=== PATIENT | male | born 1950 | race Two or more races ===

== ENCOUNTER 2025-01-07 12:07 | Inpatient (IN) | payer OTHER ==
[~2025-01-07] VITALS: Ht 170.2 cm; Wt 63.9 kg
[2025-01-07] MEDS: SODIUM CHLORIDE 0.9% 1,000 ML IV ONE (12:45)
[2025-01-07] MEDS ORDERED: VANCOMYCIN PER PHARMACY 0 MG IV SCH ×2 (12:45→19:30)
--- NOTE | 2025-01-07 13:31 | DVH ---
Indication: draining wound and hx of fall Technique: XY R ELBOW 2V XRAYXY Comparison: None FINDINGS/IMPRESSION: No radiographic evidence for acute fracture or dislocation. Enthesopathy at triceps insertion upon t he olecranon. Atherosclerotic calcification disease.
[2025-01-07 14:19] LABS: Hematocrit 35.6 % (41.0-53.0); Hemoglobin 11.9 g/dL (13.5-17.5); Mean Corpuscular Hemoglobin 29.7 pg (28.0-32.0); Mean Corpuscular Volume 89.0 fL (80.0-100.0); Nucleated Red Blood Cells % 0.0 %
[2025-01-07 14:23] LABS: Potassium 4.1 mmol/L (3.5-5.1); Sodium 142 mmol/L (136-145)
[2025-01-07 14:24] LABS: Anion Gap 12 (5-15); Calcium 8.9 mg/dL (8.7-10.4); Chloride 110 mmol/L (98-107)
[2025-01-07 14:25] LABS: Carbon Dioxide 20 mmol/L (20-31)
[2025-01-07 14:29] LABS: BUN/Creatinine Ratio 14.0 (10.0-20.0)
[2025-01-07 14:30] LABS: Blood Urea Nitrogen 33 mg/dL (9-23); Glucose 134 mg/dL (74-106)
--- NOTE | 2025-01-07 15:23 | ED.PDOC ---
History of Present Illness HPI Comments 74M with CAD no angel, HTN, CKD3, Dementia, HLD presented to the ER with the [facility] complaint of draining wound and swelling of the R elbow for the past 3 days, patient experienced a mechanical fall 1 month back, he landed on his elbow and injured it, patient did not see a physician since and went to [place] where noted swelling, tenderness and yellow drainage from the elbow. He has been taking clindamycin buitr the elbow is getting worse, denies fever, but reports chills. Denies chest pain , SOB, abdominal or urinary complaints PMH: CAD no angel, HTN, CKD3, Dementia, HLD Patient seen and examined, started IV vanc and cefepime, 1 L NS ordered Chief Complaint: Upper Extremity Time Seen by MD: 12:13 Allergies: Coded Allergies: Cephalexin (Verified Allergy, Unknown, 01/07/25) Information Source: Patient Mode of Arrival: Ambulatory Past Medical History PAST MEDICAL HISTORY: CAD, High Lipids, HTN Social History Smoker: Non-Smoker Alcohol: Denies ETOH Use Drugs: Denies Drug Use Lives In: Home Constitutional: reports: chills EENTM: denies: blurred vision, double vision, ear bleeding, ear discharge, ear drainage, ear pain, ear ringing, eye pain, eye redness, hearing loss, mouth pain, mouth swelling, nasal discharge, nose bleeding, nose congestion, nose pain, photophobia, tearing, throat pain, throat swelling, voice changes, others Respiratory: denies: cough, hemoptysis, orthopnea, SOB at rest, shortness of breath, SOB with excertion, stridor, wheezing, others Cardiovascular: denies: chest pain, dizzy spells, diaphoresis, Dyspnea on exertion, edema, irregular heart beat, left arm pain, lightheadedness, palpitations, PND, syncope, others Gastrointestinal: denies: abdomen distended, abdominal pain, blood streaked bowels, constipated, diarrhea, dysphagia, difficulty swallowing, hematemesis, melena, nausea, poor appetite, poor fluid intake, rectal bleeding, rectal pain, vomiting, others Genitourinary: denies: burning, dysuria, flank pain, frequency, hematuria, incontinence, penile discharge, penile sore, pain, testicle pain, testicle swelling, urgency, others Neurological: denies: dizziness, fainting, headache, left sided numbness, left sided weakness, numbness, paresthesia, pre-existing deficit, right sided numbness, right sided weakness, seizure, speech problems, tingling, tremors, weakness, others Musculoskeletal: reports: joint pain, joint swelling Integumetry: reports: lesions Allergic/Immunocompromised: denies: Difficulty Healing, Frequent Infections, Hives, Itching, others Hematologic/Lymphatic: denies: anemia, blood clots, easy bleeding, easy bruising, swollen glands, others Endocrine: denies: excessive hunger, excessive sweating, excessive thirst, excessive urination, flushing, intolerance to cold, intolerance to heat, unexplained weight gain, unexplained weight loss, others Psychiatric: denies: anxiety, bipolar disorder, depression, hopeless, panic disorder, schizophrenia, sleepless, suicidal, others Physical Exam General Appearance: No Apparent Distress, Normal HEENT: Normal ENT Inspection, Pharynx Normal, TMs Normal Neck: Full Range of Motion, Non-Tender, Normal, Normal Inspection Respiratory: Chest Non-Tender, Lungs Clear, No Accessory Muscle Use, No Respiratory Distress, Normal Breath Sounds Cardiovascular: No Edema, No JVD, No Murmur, No Gallop, Normal Peripheral Pulses, Regular Rate/Rhythm Breast Exam: Deferred Gastrointestinal: No Organomegaly, Non Tender, No Pulsatile Mass, Normal Bowel Sounds, Soft Genitalia: Deferred Pelvic: Deferred Rectal: None Extremities: No pedal edema Neurologic: None Cerebellar Function: Normal Reflexes: Normal Skin: Wounds Lymphatic: No Adenopathy Was a procedure done? Was a procedure done?: No Differential Dx Considerations may include: cellulitis, abcess, superficial infection X-Ray, Labs, Meds, VS Vital Signs Date Time Temp Pulse Resp B/P (MAP) Pulse Ox O2 Delivery O2 Flow Rate FiO2 01/07/25 12:13 98.2 82 16 122/81 99 98.2 Lab Test 01/07/25 14:09 01/07/25 14:04 Range/Units White Blood Count 5.6 4.4-10.8 10^3/uL Red Blood Count 4.00 L 4.5-5.90 10^6/uL Hemoglobin 11.9 L 13.5-17.5 g/dL Hematocrit 35.6 L 41.0-53.0 % Mean Corpuscular Volume 89.0 80.0-100.0 fL Mean Corpuscular Hemoglobin 29.7 28.0-32.0 pg Mean Corpuscular Hemoglobin Concent 33.4 32.0-36.0 g/dL Red Cell Distribution Width 13.6 11.8-14.3 % Platelet Count 164 140-450 10^3/uL Mean Platelet Volume 8.9 6.9-10.8 fL Neutrophils (%) (Auto) 75.3 37.0-80.0 % Lymphocytes (%) (Auto) 16.1 10.0-50.0 % Monocytes (%) (Auto) 6.1 0.0-12.0 % Eosinophils (%) (Auto) 2.2 0.0-7.0 % Basophils (%) (Auto) 0.3 0.0-2.0 % Neutrophils # (Auto) 4.2 1.6-8.6 10 ^3/uL Lymphocytes # (Auto) 0.9 0.4-5.4 10 ^3/uL Monocytes # (Auto) 0.3 0-1.3 10 ^3/uL Eosinophils # (Auto) 0.1 0-0.8 10 ^3/uL Basophils # (Auto) 0 0-0.2 10 ^3/uL Nucleated Red Blood Cells 0.0 % Erythrocyte Sedimentation Rate 92 H 0-20 mm/hr Sodium Level 142 136-145 mmol/L Potassium Level 4.1 3.5-5.1 mmol/L Chloride Level 110 H 98-107 mmol/L Carbon Dioxide Level 20 20-31 mmol/L Anion Gap 12 5-15 Blood Urea Nitrogen 33 H 9-23 mg/dL Creatinine 2.35 H 0.700-1.30 mg/dL Glomerular Filtration Rate Calc 28 >90 mL/min BUN/Creatinine Ratio 14.0 10.0-20.0 Serum Glucose 134 H 74-106 mg/dL Calcium Level 8.9 8.7-10.4 mg/dL Lactic Acid Level 1.1 0.4-2.0 mmol/L Current Medications Medications (Trade) Dose Ordered Sig/Ricky Route Start Time Stop Time Status Last Admin Sodium Chloride 1,000 ml @ 100 mls/hr Q10H ONCE IV 01/07/25 12:45 01/07/25 22:44 01/07/25 12:45 Time of 1ST Reevaluation: 13:00 Reevaluation 1ST: Unchanged Time of 2ND Reevaluation: 14:00 Reevaluation 2ND: Unchanged Patient Education/Counseling: Diagnosis, Treatment Family Education/Counseling: Diagnosis, Treatment SEPSIS Sepsis Screen Date sepsis recognized/suspect: Jan 07, 2025 Time Sepsis recognized/suspect: 1213 Recent Procedure: No On Antibiotic Therapy: No Respiratory Rate >20: No Heart Rate >90: No Temp<36 C (96.8 F) or >38.3 C: No SBP <90 or MAP <65 mmHG: No New Acute Mental Status Change: No Is the patient on CPAP, BIPAP,: No Physician Orders Blood Culture (01/07/25 12:42) Sodium Chloride 0.9% (01/07/25 12:45) Vancomycin Per Pharmacy (01/07/25 12:45) Cefepime 2gm/50ml Ns (Maxipime 2gm/50ml) (01/07/25 15:00) R Elbow 2v Xray (01/07/25 12:42) Complete Blood Count (01/08/25 04:00) Creatinine (01/08/25 04:00) Vancomycin,Random (01/08/25 04:00) Vital Signs Date Time Temp Pulse Resp B/P (MAP) Pulse Ox O2 Delivery O2 Flow Rate FiO2 01/07/25 12:13 98.2 82 16 122/81 99 98.2 Laboratory Tests Test 01/07/25 14:04 01/07/25 14:09 Lactic Acid Level 1.1 mmol/L (0.4-2.0) White Blood Count 5.6 10^3/uL (4.4-10.8) Medications Medications Dose Ordered Sig/Ricky Route Start Time Stop Time Status Last Admin Dose Admin Sodium Chloride 1,000 ml @ 100 mls/hr Q10H ONCE IV 01/07/25 12:45 01/07/25 22:44 01/07/25 12:45 Departure 1 Departure Time of Disposition: 15:00 Impression: Primary Impression: Cellulitis of right elbow Disposition: 30 STILL A PATIENT Admit to: Med Surg Condition: Stable Critical Care Note Critical Care Time?: No Stability Stability form required: JAZMIN Taveras RESIDENT Jan 07, 2025 15:23
[2025-01-07] MEDS ORDERED: ACETAMINOPHEN 325 MG TAB PO PRN (19:30)
[2025-01-07 20:15] VITALS: RESP 16; O2SAT 98
[2025-01-07 20:39] VITALS: BP 157/75; PULSE 80; RESP 18; TEMP 97.5; O2SAT 100; O2SAT 18
[2025-01-07] MEDS: VANCOMYCIN 1.25GM/250ML 250 ML IV ONE (20:58)
[2025-01-07] MEDS: CEFEPIME 2GM/50ML NS 50 ML IV SCH (20:59)
--- NOTE | 2025-01-07 22:12 | DVHHP2 ---
History of Present Illness Reason for Visit: Right elbow swelling History of Present Illness 74-year-old male presents for evaluation of right elbow swelling. Patient reports having a fall a month ago where he landed on his right elbow. He states noticing swelling over the past three days. He states that today he noticed joel e purulent discharge. Denies fever or chills. No other acute complaints reported. Past Medical History Hypertension, dyslipidemia, chronic kidney disease, diabetes mellitus Past Surgical History Denies Family History Noncontributory Smoke: No ALCOHOL: none Drugs: None Lives: with Family Review of Systems Review of Systems Review of systems are currently negative otherwise addressed in HPI. Allergies: Coded Allergies: Cephalexin (Verified Allergy, Unknown, 01/07/25) Medications Current Medications Medications Dose Ordered Sig/Ricky Route Start Time Stop Time Status Last Admin Dose Admin Vancomycin HCl 0 ml @ 0 mls/hr UD IV 01/07/25 19:30 UNV Cefepime HCl 50 ml @ 12.5 mls/hr DAILY IV 01/08/25 10:00 Acetaminophen/ Hydrocodone Bitart 1 tab Q4HP PRN PO 01/07/25 19:30 Ondansetron HCl 4 mg Q4HP PRN IV 01/07/25 19:30 Acetaminophen 650 mg Q6HP PRN PO 01/07/25 19:30 Metoprolol Succinate 50 mg DAILY PO 01/08/25 10:00 Atorvastatin Calcium 40 mg HS PO 01/08/25 22:00 Exam Vital Signs Vital Signs Date Time Temp Pulse Resp B/P (MAP) Pulse Ox O2 Delivery O2 Flow Rate FiO2 01/07/25 20:39 97.5 80 157/75 (102) 18 97.5 01/07/25 20:15 16 Room Air* 0 21 Exam Gen: 74-year-old male in mild distress Skin: Warm, dry, normal color and texture, no rash. HEENT: Normocephalic atraumatic, mucous membranes moist and pink. Neck: Cervical and supraclavicular nodes normal without enlargement, trachea is midline, thyroid gland is normal without masses. Pulmonary: Clear to auscultation and percussion bilaterally. Cardiac: Regular rate and rhythm. No murmur Abdomen: Soft, nontender, nondistended, bowel sounds present all 4 quadrants, no guarding, no rigidity, no organomegaly. Extremities: No cyanosis, clubbing, right elbow redness with tenderness with mild purulent discharge Neuro: Cranial nerves II through XII grossly intact, normal affect and speech, no focal motor deficits. Labs/Xrays ORDERING PHYSICIAN: JAZMIN FRAUSTO RESIDENT PROCEDURE(s): RELB - R ELBOW 2V XRAY REASON: draining wound and hx of fall ORDER NUMBER(s): [id number], ACCESSION NUMBER(s): [id number] Indication: draining wound and hx of fall Technique: XY R ELBOW 2V XRAYXY Comparison: None FINDINGS/IMPRESSION: No radiographic evidence for acute fracture or dislocation. Enthesopathy at triceps insertion upon the olecranon. Atherosclerotic calcification disease. :3 Labs Test 01/07/25 14:09 01/07/25 14:04 Range/Units White Blood Count 5.6 4.4-10.8 10^3/uL Red Blood Count 4.00 L 4.5-5.90 10^6/uL Hemoglobin 11.9 L 13.5-17.5 g/dL Hematocrit 35.6 L 41.0-53.0 % Mean Corpuscular Volume 89.0 80.0-100.0 fL Mean Corpuscular Hemoglobin 29.7 28.0-32.0 pg Mean Corpuscular Hemoglobin Concent 33.4 32.0-36.0 g/dL Red Cell Distribution Width 13.6 11.8-14.3 % Platelet Count 164 140-450 10^3/uL Mean Platelet Volume 8.9 6.9-10.8 fL Neutrophils (%) (Auto) 75.3 37.0-80.0 % Lymphocytes (%) (Auto) 16.1 10.0-50.0 % Monocytes (%) (Auto) 6.1 0.0-12.0 % Eosinophils (%) (Auto) 2.2 0.0-7.0 % Basophils (%) (Auto) 0.3 0.0-2.0 % Neutrophils # (Auto) 4.2 1.6-8.6 10 ^3/uL Lymphocytes # (Auto) 0.9 0.4-5.4 10 ^3/uL Monocytes # (Auto) 0.3 0-1.3 10 ^3/uL Eosinophils # (Auto) 0.1 0-0.8 10 ^3/uL Basophils # (Auto) 0 0-0.2 10 ^3/uL Nucleated Red Blood Cells 0.0 % Erythrocyte Sedimentation Rate 92 H 0-20 mm/hr Sodium Level 142 136-145 mmol/L Potassium Level 4.1 3.5-5.1 mmol/L Chloride Level 110 H 98-107 mmol/L Carbon Dioxide Level 20 20-31 mmol/L Anion Gap 12 5-15 Blood Urea Nitrogen 33 H 9-23 mg/dL Creatinine 2.35 H 0.700-1.30 mg/dL Glomerular Filtration Rate Calc 28 >90 mL/min BUN/Creatinine Ratio 14.0 10.0-20.0 Serum Glucose 134 H 74-106 mg/dL Calcium Level 8.9 8.7-10.4 mg/dL Lactic Acid Level 1.1 0.4-2.0 mmol/L SEPSIS Sepsis Screen Date sepsis recognized/suspect: Jan 07, 2025 Time Sepsis recognized/suspect: 1212 Recent Procedure: No On Antibiotic Therapy: No Respiratory Rate >20: No Heart Rate >90: No Temp<36 C (96.8 F) or >38.3 C: No SBP <90 or MAP <65 mmHG: No New Acute Mental Status Change: No Is the patient on CPAP, BIPAP,: No Physician Orders Vancomycin,Random (01/08/25 04:00) *[facility] (01/07/25 19:28) Wound Culture W/ Gs (01/07/25 19:28) Basic Metabolic Panel (01/08/25 04:00) Vancomycin Per Pharmacy (01/07/25 19:30) Cefepime 1gm/50ml (Maxipime 1gm/50ml) (01/08/25 10:00) Admit (01/07/25 19:28) Renal Standard(2gna,3gk,Lopho) (01/08/25 Breakfast) Hydrocodone-Acet 5/325mg Tab ([place] 5/32 (01/07/25 19:30) Ondansetron Hcl (Zofran) (01/07/25 19:30) Condition: Stable (01/07/25 19:28) Acetaminophen Tablet (Tylenol Tablet) (01/07/25 19:30) Bedrest With Bathroom Privileg (01/07/25 19:28) Hepatitis B Surface Antigen (01/08/25 04:00) Hepatitis C Antibody (01/08/25 04:00) Metoprolol Xl Succinate (Toprol Xl) (01/08/25 10:00) Atorvastatin (Lipitor) (01/08/25 22:00) Metoprolol Xl Succinate (Toprol Xl) (01/07/25 22:15) Vital Signs Date Time Temp Pulse Resp B/P (MAP) Pulse Ox O2 Delivery O2 Flow Rate FiO2 01/07/25 20:39 97.5 80 157/75 (102) 18 97.5 01/07/25 20:15 16 98 Room Air* 0 21 01/07/25 20:13 97.8 83 16 133/71 (91) 99 97.8 Laboratory Tests Test 01/07/25 14:04 01/07/25 14:09 Lactic Acid Level 1.1 mmol/L (0.4-2.0) White Blood Count 5.6 10^3/uL (4.4-10.8) Medications Medications Dose Ordered Sig/Ricky Route Start Time Stop Time Status Last Admin Dose Admin Cefepime HCl 50 ml @ 12.5 mls/hr Q24H IV 01/07/25 15:00 01/07/25 21:21 DC 01/07/25 20:59 12.5 MLS/HR Sodium Chloride 1,000 ml @ 100 mls/hr Q10H ONCE IV 01/07/25 12:45 01/07/25 22:44 01/07/25 12:45 100 MLS/HR Vancomycin HCl 250 ml @ 200 mls/hr ONCE ONCE IV 01/07/25 13:30 01/07/25 14:44 DC 01/07/25 20:58 200 MLS/HR Assessment/Plan Assessment/Plan Assessment Right elbow cellulitis Hypertension Acute on chronic renal failure Diabetes mellitus Plan Admit the patient to Med [facility] [place] Cefepime/vancomycin Wound culture pending Resume home medications Continue treatment per orders. Plan discussed with: Patient My Orders Orders - BRYAN HICKMAN Procedure Category Date Status Time *Dr[facility] CONS 01/07/25 Transmitted -[place] 19:28 Wound Culture W/ Gs CIARRA 01/07/25 Logged 19:28 Basic Metabolic Panel LAB 01/08/25 Verified 04:00 Vancomycin Per PHA 01/07/25 Pending Pharmacy 19:30 Cefepime 1gm/50ml PHA 01/08/25 In Process (Maxipime 1gm/50ml) 10:00 Admit ADMIT 01/07/25 Transmitted 19:28 Renal DIET 01/08/25 Transmitted Standard(2gna,3gk,Lopho) Breakfast Hydrocodone-Acet PHA 01/07/25 In Process 5/325mg Tab ([place] 19:30 Ondansetron Hcl PHA 01/07/25 In Process (Zofran) 19:30 Condition: Stable MICAH 01/07/25 In Process 19:28 Acetaminophen Tablet PHA 01/07/25 In Process (Tylenol Tablet) 19:30 Bedrest With Bathroom MICAH 01/07/25 In Process Privileg 19:28 Hepatitis B Surface LAB 01/08/25 Verified Antigen 04:00 Hepatitis C Antibody LAB 01/08/25 Verified 04:00 Metoprolol Xl PHA 01/08/25 In Process Succinate (Toprol Xl) 10:00 Atorvastatin (Lipitor) PHA 01/08/25 In Process 22:00 Metoprolol Xl PHA 01/07/25 In Process Succinate (Toprol Xl) 22:15 Date of Service: Jan 07, 2025 Billing Provider: BRYAN HICKMAN Common Visit Codes: [id number] INP/OBS CARE (MOD) BRYAN HICKMAN Jan 07, 2025 22:12
[2025-01-07] MEDS: METOPROLOL SUCCINATE XL 50 MG TAB PO ONE (23:20)
[2025-01-07] MEDS: HYDROcodone-ACET 5/325MG TAB PO PRN (23:20)
[2025-01-08] VITALS (7 sets, daily range): BP systolic 147–179; BP diastolic 62–88; PULSE 66–77; RESP 16–18; TEMP 97.4–97.9; O2SAT 96–100
[2025-01-08 05:56] LABS: Hematocrit 31.3 % (41.0-53.0); Hemoglobin 10.8 g/dL (13.5-17.5); Mean Corpuscular Hemoglobin 30.5 pg (28.0-32.0); Mean Corpuscular Volume 88.1 fL (80.0-100.0); Nucleated Red Blood Cells % 0.1 %
[2025-01-08 06:11] LABS: Potassium 3.9 mmol/L (3.5-5.1); Sodium 143 mmol/L (136-145)
[2025-01-08 06:12] LABS: Anion Gap 12 (5-15); Carbon Dioxide 21 mmol/L (20-31)
[2025-01-08 06:16] LABS: Calcium 8.1 mg/dL (8.7-10.4); Chloride 110 mmol/L (98-107)
[2025-01-08 06:17] LABS: BUN/Creatinine Ratio 14.8 (10.0-20.0); Blood Urea Nitrogen 31 mg/dL (9-23); Glucose 102 mg/dL (74-106)
[2025-01-08] MEDS: CEFEPIME 1GM/50ML 50 ML IV SCH (09:09)
[2025-01-08] MEDS: METOPROLOL SUCCINATE XL 50 MG TAB PO SCH (09:10)
[2025-01-08] MEDS ORDERED: VANCOMYCIN 1.25GM/250ML 250 ML IV ONE (10:15)
--- NOTE | 2025-01-08 11:49 | DVH ---
US KIDNEY HISTORY: LAVELL COMPARISON: None TECHNIQUE: Transverse and longitudinal grayscale and color doppler images were obtained of the kidney s and bladder. FINDINGS: Right kidney: Size: 7.8 cm Cortical thickness: Normal Echogenicity: Increased Stones: None Masses: None Hydronephrosis: None Ureters: Not well visualized. Other: Trace perinephric fluid. Left kidney: Size: 9.4 cm Cortical thickness: Normal Echogenicity: Increased Stones: None Masses: None Hydronephrosis: None Ureters: Not well visualized. Other: Trace perinephric fluid. Bladder: Normal Other: Cholelithiasis. IMPRESSION: Echogenic kidneys can be seen with medical renal disease.
[2025-01-08] MEDS: VANCOMYCIN 500mg/100mL 100 ML IV ONE (12:40)
--- NOTE | 2025-01-08 15:09 | DVHCONRES ---
Date Seen: Jan 08, 2025 Resident Creating Document: SUKHDEEP SAENZ RESIDENT Referring Physician SARA Krishna History of Present Illness This is a 74-year-old male with past medical history of hypertension, dyslipidemia, type 2 diabetes mellitus presented to the ED for an evaluation of right elbow swelling. the patient reports having a fall 1 month ago when he landed on his right elbow. he also mentioned noticed swelling for past 3 days and with some purulent discharge. He denies fever, chills, shortness of breath, cough, any changes in bowel and bladder habit. patient was seen and examined on the bedside. He is alert oriented x3. complaint of right elbow pain and swelling. Past Medical History Hypertension, dyslipidemia, type 2 diabetes mellitus Past Surgical History Unknown Family History: Patient reports no known family medical history. Allergies: Coded Allergies: Cephalexin (Verified Allergy, Unknown, 01/07/25) Current Medications Current Medications Medications (Trade) Dose Ordered Sig/Ricky Route PRN Reason Start Time Stop Time Status Last Admin Vancomycin HCl 0 ml @ 0 mls/hr UD IV 01/07/25 19:30 Cefepime HCl 50 ml @ 12.5 mls/hr DAILY IV 01/08/25 10:00 01/08/25 09:09 Acetaminophen/ Hydrocodone Bitart ([place] 5/325MG Tab) 1 tab Q4HP PRN PO MODERATE PAIN (4-6 PAIN SCALE) 01/07/25 19:30 01/07/25 23:20 Ondansetron HCl (Zofran) 4 mg Q4HP PRN IV NAUSEA / VOMITING 01/07/25 19:30 Acetaminophen (Tylenol Tablet) 650 mg Q6HP PRN PO PAIN SCALE 1-3 OR TEMP>100.4 01/07/25 19:30 Metoprolol Succinate (Toprol Xl) 50 mg DAILY PO 01/08/25 10:00 01/08/25 09:10 Atorvastatin Calcium (Lipitor) 40 mg HS PO 01/08/25 22:00 Review of Systems Constitutional: No: Fever, Chills, Sweats, Weakness, Malaise, Other Eyes: No: Pain, Vision change, Conjunctivae inflammation, Eyelid inflammation, Other, Redness ENT: No: Ear pain, Ear discharge, Nose pain, Nose discharge, Nose congestion, Mouth pain, Mouth swelling, Throat pain, Throat swelling, Other Respiratory: Shortness of breath, improving No: Cough, Dry,Wheezing, Hemoptysis, Pleuritic Pain, Sputum, Wheezing, Other Cardiovascular: No: Chest Pain, Palpitations, Orthopnea, Paroxysmal Noc. Dyspnea, Edema, Lt Headedness, Other Gastrointestinal: No: Nausea, Vomiting, Abdominal Pain, Diarrhea, Constipation, Melena, Hematochezia, Other Musculoskeletal: Pain and swelling of right elbow, No: other, neck pain, shoulder pain, arm pain, back pain, hand pain, leg pain, foot pain Neurological:; No: Weakness, Numbness, Incoordination, Change in speech, Confusion, Seizures Vital Signs Vital Signs Date Time Temp Pulse Resp B/P (MAP) Pulse Ox O2 Delivery O2 Flow Rate FiO2 01/08/25 14:43 97.8 68 18 147/82 (103) 100 97.8 01/07/25 20:39 Room Air* 0 21 Physical Exam Physical examination: General Appearance: Alert, Oriented X3, Cooperative, No acute distress HEENT: Atraumatic, PERRLA, EOMI, Mucous membrane moist/pink Respiratory: Clear to auscultation, Normal air movement Cardiovascular: Regular rate, Normal S1, Normal S2, No murmurs, no chest wall tenderness Abdominal: Normal bowel sounds, Soft, No tenderness, No hepatospenomegaly, No masses Extremities: Swelling and redness of rt elbow, No clubbing, No cyanosis, No edema, Normal pulses. Skin: No rashes, No breakdown, No significant lesion Neuro: Normal gait, Normal speech, Strength at 5/5 X4 ext, Normal tone, Sensation intact, Cranial nerves 3-12 NL, Reflexes 2+ Psych/Mental Status: Mental status NL, Mood NL Labs/Diagnostic Data Labs Test 01/08/25 05:00 01/07/25 23:23 01/07/25 14:09 01/07/25 14:04 Range/Units White Blood Count 4.5 4.4-10.8 10^3/uL Red Blood Count 3.55 L 4.5-5.90 10^6/uL Hemoglobin 10.8 L 13.5-17.5 g/dL Hematocrit 31.3 #L 41.0-53.0 % Mean Corpuscular Volume 88.1 80.0-100.0 fL Mean Corpuscular Hemoglobin 30.5 28.0-32.0 pg Mean Corpuscular Hemoglobin Concent 34.6 32.0-36.0 g/dL Red Cell Distribution Width 13.6 11.8-14.3 % Platelet Count 152 140-450 10^3/uL Mean Platelet Volume 8.8 6.9-10.8 fL Neutrophils (%) (Auto) 64.3 37.0-80.0 % Lymphocytes (%) (Auto) 23.3 10.0-50.0 % Monocytes (%) (Auto) 8.3 0.0-12.0 % Eosinophils (%) (Auto) 3.9 0.0-7.0 % Basophils (%) (Auto) 0.2 0.0-2.0 % Neutrophils # (Auto) 2.9 1.6-8.6 10 ^3/uL Lymphocytes # (Auto) 1.0 0.4-5.4 10 ^3/uL Monocytes # (Auto) 0.4 0-1.3 10 ^3/uL Eosinophils # (Auto) 0.2 0-0.8 10 ^3/uL Basophils # (Auto) 0 0-0.2 10 ^3/uL Nucleated Red Blood Cells 0.1 % Sodium Level 143 136-145 mmol/L Potassium Level 3.9 3.5-5.1 mmol/L Chloride Level 110 H 98-107 mmol/L Carbon Dioxide Level 21 20-31 mmol/L Anion Gap 12 5-15 Blood Urea Nitrogen 31 H 9-23 mg/dL Creatinine 2.10 H 0.700-1.30 mg/dL Glomerular Filtration Rate Calc 32 >90 mL/min BUN/Creatinine Ratio 14.8 10.0-20.0 Serum Glucose 102 74-106 mg/dL Hemoglobin A1c 7.7 H <5.7 % A1C Uric Acid 7.9 3.7-9.2 mg/dL Calcium Level 8.1 L 8.7-10.4 mg/dL Random Vancomycin Level 15.0 H 5-10 ug/mL POC Glucose 162 H 70-106 mg/dl Erythrocyte Sedimentation Rate 92 H 0-20 mm/hr Lactic Acid Level 1.1 0.4-2.0 mmol/L Microbiology Date/Time Source Procedure Growth Status 01/07/25 14:04 Blood Blood Culture - Preliminary NO GROWTH AFTER 24 HOURS OF INCUBATION. 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 Nephro team will follow the patient. In case of any questions or concerns please feel free to reach out. Plan discussed with Dr. Nichole . The patient and caregiver team agreed to the plan. Plan discussed with: Patient, Other (RN) ADDENDUM ADDENDUM seen with resident agree with plan care time 40mins SUKHDEEP SAENZ RESIDENT Jan 08, 2025 15:09 JAYSON NICHOLE MD Jan 08, 2025 21:06
--- NOTE | 2025-01-08 16:52 | DVHPN2 ---
Subjective In bed alert awake oriented x3. Come comfortable without complaints. Able to move his left elbow without much discomfort. Changes from previous H/P or p: No Changes Objective Vitals Vital Signs Date Time Temp Pulse Resp B/P (MAP) Pulse Ox O2 Delivery O2 Flow Rate FiO2 01/08/25 14:43 97.8 68 18 147/82 (103) 100 97.8 01/08/25 14:26 Room Air* 0 21 Intake/Output Intake and Output 01/08/25 07:00 Intake Total 480 ml Balance 480 ml Intake Oral 480 ml # Voids 2 Exam Alert awake oriented x3. HEENT neck supple no JVD. Heart regular rate and rhythm S1-S2. Lungs fair air movement without rales wheezes. Abdomen soft nontender positive bowel sounds. Extremities no edema positive pulses. Right elbow examined positive warmth to touch and no fluctuant mass identified however olecranon bursitis noted. Medications Current Medications Medications Dose Ordered Sig/Ricky Route Start Time Stop Time Status Last Admin Dose Admin Vancomycin HCl 0 ml @ 0 mls/hr UD IV 01/07/25 19:30 Cefepime HCl 50 ml @ 12.5 mls/hr DAILY IV 01/08/25 10:00 01/08/25 09:09 12.5 MLS/HR Acetaminophen/ Hydrocodone Bitart 1 tab Q4HP PRN PO 01/07/25 19:30 01/07/25 23:20 1 TAB Ondansetron HCl 4 mg Q4HP PRN IV 01/07/25 19:30 Acetaminophen 650 mg Q6HP PRN PO 01/07/25 19:30 Metoprolol Succinate 50 mg DAILY PO 01/08/25 10:00 01/08/25 09:10 50 MG Atorvastatin Calcium 40 mg HS PO 01/08/25 22:00 Laboratory Results Laboratory Tests 01/08/25 05:00 Chemistry Test 01/08/25 05:00 Calcium Level 8.1 mg/dL (8.7-10.4) L HgA1c, TSH Test 01/08/25 05:00 Hemoglobin A1c 7.7 % A1C (<5.7) H Microbiology Microbiology Date/Time Source Procedure Growth Status 01/07/25 14:04 Blood Blood Culture - Preliminary NO GROWTH AFTER 24 HOURS OF INCUBATION. Resulted Assessment/Plan Assessment/Plan Right elbow cellulitis Hypertension Acute on chronic renal failure Diabetes mellitus Clinically feeling better. Ambulating. I will order a CT of the right elbow to rule out any abscess. We will have orthopedic consultation as well. Meantime continue current antibiotics and rest of supportive care and treatment. Discussed with the patient regarding care plan at bedside. Plan discussed with: Patient Date of Service: Jan 08, 2025 Billing Provider: GREGORY ARTEAGA MD Common Visit Codes: [id number] INP/OBS CARE(MOD) GREGORY ARTEAGA MD Jan 08, 2025 16:52
[2025-01-08 18:12] LABS: Protein, Urine 86.7 mg/dL (1-14)
[2025-01-08 18:21] LABS: Urine Protein, UAD 1+ (Negative)
[2025-01-08] MEDS: ATORVASTATIN 20 MG TAB PO SCH (21:30)
[2025-01-09] VITALS (8 sets, daily range): BP systolic 125–150; BP diastolic 66–89; PULSE 69–85; RESP 17–19; TEMP 97.5–98.3; O2SAT 96–99
[2025-01-09 07:13] LABS: Hematocrit 33.0 % (41.0-53.0); Hemoglobin 11.3 g/dL (13.5-17.5); Mean Corpuscular Hemoglobin 29.9 pg (28.0-32.0); Mean Corpuscular Volume 87.2 fL (80.0-100.0); Nucleated Red Blood Cells % 0.1 %
[2025-01-09 07:22] LABS: Chloride 107 mmol/L (98-107); Potassium 4.3 mmol/L (3.5-5.1); Sodium 140 mmol/L (136-145)
[2025-01-09 07:23] LABS: Anion Gap 10 (5-15); Calcium 8.8 mg/dL (8.7-10.4); Carbon Dioxide 23 mmol/L (20-31)
[2025-01-09 07:28] LABS: BUN/Creatinine Ratio 11.8 (10.0-20.0)
[2025-01-09 07:34] LABS: Blood Urea Nitrogen 24 mg/dL (9-23); Glucose 141 mg/dL (74-106)
--- NOTE | 2025-01-09 10:49 | DVH ---
CLINICAL INFORMATION: Right elbow bursitis /cellulitis. TECHNIQUE: Axial CT images of the right elbow were obtained without IV contrast. Coronal and sagittal reformatted images were obtained, reviewed, and stored. All CT scans at this medical facility are p erformed using dose modulation techniques as appropriate to a performed exam including the following: Automated exposure control was utilized; adjustment of the MA and/or KV according to patient size; a nd use of iterative reconstruction technique. CTDIvol = 13.66 mGy DLP = 2.13 mGy-cm COMPARISON: XY R ELBOW 2V XRAY on DOS: 01/07/25 FINDINGS: No evidence of acute fracture. Mild arthritic changes at the right elbow. Ossific density m easuring up to 4.5 mm in the posterior recess of the right elbow joint, possible loose body. Prominen t spurring at the proximal aspect of the olecranon. No significant joint effusion. Moderate soft tiss ue swelling along the dorsal aspect of the with ill-defined fluid collection extending up to 6 cm in greatest dimension, likely bursitis. Superimposed cellulitis not excluded. Dense arterial calcificati on. No soft tissue gas. No radiopaque foreign body. No significant fatty atrophy in the visualized mu sculature. IMPRESSION: 1. No evidence of acute bony abnormality. 2. Ossific density at the posterior recess of the right elbow joint, possible loose body. 3. Moderate soft tissue swelling and ill-defined fluid collection along the posterior aspect of the o lecranon, likely bursitis in the appropriate clinical setting. Superimposed cellulitis not excluded. 4. Additional findings as described above.
[2025-01-09] MEDS: VANCOMYCIN 500mg/100mL 100 ML IV ONE (11:00)
[2025-01-09 11:29] LABS: Hepatitis B Surface Antigen Negative (Negative); Hepatitis C Antibody Negative (Negative)
--- NOTE | 2025-01-09 11:31 | DVHPN2 ---
Progress Note Date Seen: Jan 09, 2025 Resident Creating Document: SUKHDEEP SAENZ RESIDENT Medical Necessity Reason Pt with a Central, PICC or Fol: No Subjective Review of Systems patient was seen and examined on the bedside. He is alert oriented x3. complaint of right elbow pain and swelling. Objective vital signs Vital Sign Date Time Temp Pulse Resp B/P (MAP) Pulse Ox O2 Delivery O2 Flow Rate FiO2 01/09/25 09:12 69 133/79 01/09/25 09:00 97.5 18 99 97.5 01/09/25 08:00 Room Air* 0 21 Total Intake and Output 01/08/25 01/08/25 01/09/25 15:00 23:00 07:00 Intake Total 150 ml 850 ml 400 ml Balance 150 ml 850 ml 400 ml medications Current Medications Medications Dose Ordered Sig/Ricky Route Start Time Stop Time Status Last Admin Dose Admin Vancomycin HCl 0 ml @ 0 mls/hr UD IV 01/07/25 19:30 Cefepime HCl 50 ml @ 12.5 mls/hr DAILY IV 01/08/25 10:00 01/09/25 09:12 12.5 MLS/HR Acetaminophen/ Hydrocodone Bitart 1 tab Q4HP PRN PO 01/07/25 19:30 01/09/25 01:04 1 TAB Ondansetron HCl 4 mg Q4HP PRN IV 01/07/25 19:30 Acetaminophen 650 mg Q6HP PRN PO 01/07/25 19:30 Metoprolol Succinate 50 mg DAILY PO 01/08/25 10:00 01/09/25 09:12 50 MG Atorvastatin Calcium 40 mg HS PO 01/08/25 22:00 01/08/25 21:30 40 MG Examination Physical examination: General Appearance: Alert, Oriented X3, Cooperative, No acute distress HEENT: Atraumatic, PERRLA, EOMI, Mucous membrane moist/pink Respiratory: Clear to auscultation, Normal air movement Cardiovascular: Regular rate, Normal S1, Normal S2, No murmurs, no chest wall tenderness Abdominal: Normal bowel sounds, Soft, No tenderness, No hepatospenomegaly, No masses Extremities: Swelling and redness of rt elbow, No clubbing, No cyanosis, No edema, Normal pulses. Skin: No rashes, No breakdown, No significant lesion Neuro: Normal gait, Normal speech, Strength at 5/5 X4 ext, Normal tone, Sensation intact, Cranial nerves 3-12 NL, Reflexes 2+ Psych/Mental Status: Mental status NL, Mood NL laboratory and microbiology Laboratory Tests 01/09/25 06:27 Test 01/09/25 06:27 Range/Units Serum Glucose 141 H 74-106 mg/dL Microbiology Date/Time Source Procedure Growth Status 01/07/25 19:28 Elbow Right Gram Stain Pending Resulted 01/07/25 19:28 Elbow Right Wound Culture - Preliminary Resulted 01/07/25 14:04 Blood Blood Culture - Preliminary NO GROWTH AFTER 24 HOURS OF INCUBATION. 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 - FENa 3.4% - kidney ultrasound demonstrated bilateral medical renal disease - continue IV antibiotics as per primary - Mild ISS - strict I&O - avoid nephrotoxic medication - monitor BMP Thank you so much for the opportunity to consult on your patient. Nephro team will follow the patient. In case of any questions or concerns please feel free to reach out. Plan discussed with Dr. Nichole . The patient and caregiver team agreed to the plan. Plan discussed with: Patient, Other (RN) My Orders My Orders Orders - SUKHDEEP SAENZ Procedure Category Date Status Time * Dietary Consult CONS 01/08/25 Transmitted 17:19 Cleanse Wound With MICAH 01/08/25 In Process Wound Clean 15:43 SUKHDEEP SAENZ RESIDENT Jan 09, 2025 11:31
--- NOTE | 2025-01-09 16:52 | DVHPN2 ---
Subjective In bed alert awake oriented x3. Family is at bedside. Patient's elbow cultures growing staph aureus organisms for which he is on antibiotics including vancomycin. Patient pending orthopedic evaluation to see if he would benefit from any aspiration of fluid collection seen on CT of the elbow. Changes from previous H/P or p: No Changes Objective Vitals Vital Signs Date Time Temp Pulse Resp B/P (MAP) Pulse Ox O2 Delivery O2 Flow Rate FiO2 01/09/25 12:41 97.8 71 19 150/81 (104) 99 97.8 01/09/25 08:00 Room Air* 0 21 Intake/Output Intake and Output 01/09/25 07:00 Intake Total 1400 ml Balance 1400 ml Intake Oral 1250 ml IV Total 150 ml # Voids 3 Exam Alert awake oriented x3. HEENT neck supple no JVD. Heart regular rate and rhythm S1-S2. Lungs fair air movement without rales wheezes. Abdomen soft nontender positive bowel sounds. Extremities no edema positive pulses. Right elbow examined positive warmth to touch and no fluctuant mass identified however olecranon bursitis noted. Medications Current Medications Medications Dose Ordered Sig/Ricky Route Start Time Stop Time Status Last Admin Dose Admin Vancomycin HCl 0 ml @ 0 mls/hr UD IV 01/07/25 19:30 Cefepime HCl 50 ml @ 12.5 mls/hr DAILY IV 01/08/25 10:00 01/09/25 09:12 12.5 MLS/HR Acetaminophen/ Hydrocodone Bitart 1 tab Q4HP PRN PO 01/07/25 19:30 01/09/25 01:04 1 TAB Ondansetron HCl 4 mg Q4HP PRN IV 01/07/25 19:30 Acetaminophen 650 mg Q6HP PRN PO 01/07/25 19:30 Metoprolol Succinate 50 mg DAILY PO 01/08/25 10:00 01/09/25 09:12 50 MG Atorvastatin Calcium 40 mg HS PO 01/08/25 22:00 01/08/25 21:30 40 MG Laboratory Results Laboratory Tests 01/09/25 06:27 Chemistry Test 01/09/25 06:27 Calcium Level 8.8 mg/dL (8.7-10.4) Phosphorus Level 3.6 mg/dL (2.4-5.1) Urinalysis Test 01/08/25 00:00 01/08/25 10:12 Urine Protein/Creatinine Ratio 1.75 Urine Total Protein 86.7 mg/dL (1-14) H Urine Color Light-yellow (Yellow) Urine Clarity Clear (Clear) Urine pH 5.5 (5.0-9.0) Urine Specific [place] 1.013 (1.001-1.035) Urine Protein 1+ (Negative) H Urine Ketones Negative (Negative) Urine Blood Negative /uL (Negative) Urine Nitrite Negative (Negative) Urine Bilirubin Negative (Negative) Urine Urobilinogen Normal mg/dL (Negative) Urine Leukocyte Esterase Negative /uL (Negative) Urine RBC 1 /hpf (0 - 3) Urine Microscopic WBC < 1 /HPF (0-3) Urine Squamous Epithelial Cells Few /hpf (<5) Urine Bacteria None seen /hpf (None Seen) Urine Hyaline Casts Few /lpf (0 - 2) Urine Creatinine 52.51 mg/dL (30.0-125.0) Urine Sodium 123 mmol/L (40-220) Urine Glucose 2+ mg/dL (Normal) H Microbiology Microbiology Date/Time Source Procedure Growth Status 01/07/25 19:28 Elbow Right Gram Stain - Final Resulted 01/07/25 19:28 Elbow Right Wound Culture - Preliminary Resulted 01/07/25 14:04 Blood Blood Culture - Preliminary NO GROWTH AFTER 48 HOURS OF INCUBATION. Resulted Assessment/Plan Assessment/Plan Right elbow cellulitis with the small fluid collection seen on CT of the elbow Hypertension Acute on chronic renal failure Diabetes mellitus Continue vancomycin and current antibiotics. Wait for orthopedic recommendations to see if he needs any bedside aspiration of the fluid or debridement. Continue wound care. Further clinical management per clinical course. Discussed with the patient and family at bedside regarding care plan Plan discussed with: Patient Date of Service: Jan 09, 2025 Billing Provider: GREGORY ARTEAGA MD Common Visit Codes: [id number] INP/OBS CARE(MOD) GREGORY ARTEAGA MD Jan 09, 2025 16:52
--- NOTE | 2025-01-09 17:02 | DVHINCON2 ---
Consult Note Consult Consult Note History of Present Illness (HPI): Pt w/ hx of CAD, HTN, CKD3, Dementia, HLD seem in ER for draining wound and swelling of the R elbow Olecranone aspect for last 1 week approx, patient experienced a mechanical fall 1 month back, he landed on his elbow and injured it, patient did not see a physician since and went to [place] where noted swelling, tenderness and yellow drainage from the elbow and on his return came to [facility] ER. Orthopedic consulted for Right Elbow erythema, drainage and pain, Pt currently on IV antibiotics and and notes most erythema of forearm has resolved, continues to have swelling , erythema and yellow discharge noted on dressing from R Elbow Olecranon aspect. Pt reported full R Elbow ROM with no pain otherwise. No numbness/tingling or worsening of pain requested. Physical Exam: General: Awake, alert, in no acute distress. Right Elbow: Fluctuant swelling over olecranon bursa. Mild purulent discharge noted with manipulation. Surrounding erythema improved compared to admission per pt. No joint line tenderness. Range of motion full, pain-free. Neurovascular exam intact distally. Imaging: right elbow ct 1. No evidence of acute bony abnormality. 2. Ossific density at the posterior recess of the right elbow joint, possible loose body. 3. Moderate soft tissue swelling and ill-defined fluid collection along the posterior aspect of the olecranon, likely bursitis in the appropriate clinical setting. Superimposed cellulitis not excluded. 4. Additional findings as described above. Assessment: Mr. Thomas with possible septic olecranon bursitis of the Right elbow following trauma and drainage. Erythema and forearm cellulitis have improved with IV antibiotics, but fluctuant purulent fluid persists at the bursa. No evidence of intra-articular involvement. Plan: 1. Continue IV antibiotics per primary team. 2. Recommend incision and drainage (I&D) of right olecranon bursa given persistent purulent fluid. 3. Discussed case with Dr. Reyna, Surgery Scheduled for tommorow 1200. NPO Midnight , Consent to be completed, Ordered today. 4. Maintain dressing care and monitor drainage. Plan discussed with: Patient, Other (bedside nurse) Visit Coding Surgery Date of Service if different f: Jan 09, 2025 Billing Provider: MAHENDRA NGO Surgery Visit Codes: [id number] - INP CONSULT <55 MIN MAHENDRA NGO Jan 09, 2025 17:02
[2025-01-10] VITALS (10 sets, daily range): BP systolic 131–171; BP diastolic 72–93; PULSE 67–84; RESP 16–19; TEMP 97.4–98; O2SAT 96–100
[2025-01-10 07:09] LABS: Hematocrit 31.4 % (41.0-53.0); Hemoglobin 10.9 g/dL (13.5-17.5); Mean Corpuscular Hemoglobin 29.9 pg (28.0-32.0); Mean Corpuscular Volume 86.2 fL (80.0-100.0); Nucleated Red Blood Cells % 0.1 %
[2025-01-10 07:22] LABS: Anion Gap 9 (5-15); Carbon Dioxide 21 mmol/L (20-31)
[2025-01-10 07:28] LABS: BUN/Creatinine Ratio 13.8 (10.0-20.0)
[2025-01-10 07:30] LABS: Blood Urea Nitrogen 25 mg/dL (9-23); Calcium 8.6 mg/dL (8.7-10.4); Chloride 106 mmol/L (98-107); Glucose 151 mg/dL (74-106); Potassium 4.0 mmol/L (3.5-5.1); Sodium 136 mmol/L (136-145)
--- NOTE | 2025-01-10 10:28 | DVHPN2 ---
Progress Note Date Seen: Jan 10, 2025 Resident Creating Document: SUKHDEEP SAENZ RESIDENT Medical Necessity Reason Pt with a Central, PICC or Fol: No Subjective Review of Systems patient was seen and examined on the bedside. He is alert oriented x3. complaint of right elbow pain and swelling. Objective vital signs Vital Sign Date Time Temp Pulse Resp B/P (MAP) Pulse Ox O2 Delivery O2 Flow Rate FiO2 01/10/25 09:00 98.0 69 17 139/82 (101) 100 98.0 01/09/25 20:00 Room Air* 0 21 Total Intake and Output 01/09/25 01/09/25 01/10/25 15:00 23:00 07:00 Intake Total 150 ml 1075 ml 200 ml Output Total 251 ml Balance 150 ml 1075 ml -51 ml medications Current Medications Medications Dose Ordered Sig/Ricky Route Start Time Stop Time Status Last Admin Dose Admin Vancomycin HCl 0 ml @ 0 mls/hr UD IV 01/07/25 19:30 Cefepime HCl 50 ml @ 12.5 mls/hr DAILY IV 01/08/25 10:00 01/10/25 09:16 12.5 MLS/HR Acetaminophen/ Hydrocodone Bitart 1 tab Q4HP PRN PO 01/07/25 19:30 01/09/25 17:03 1 TAB Ondansetron HCl 4 mg Q4HP PRN IV 01/07/25 19:30 Acetaminophen 650 mg Q6HP PRN PO 01/07/25 19:30 Metoprolol Succinate 50 mg DAILY PO 01/08/25 10:00 01/09/25 09:12 50 MG Atorvastatin Calcium 40 mg HS PO 01/08/25 22:00 01/09/25 21:07 40 MG Examination Physical examination: General Appearance: Alert, Oriented X3, Cooperative, No acute distress HEENT: Atraumatic, PERRLA, EOMI, Mucous membrane moist/pink Respiratory: Clear to auscultation, Normal air movement Cardiovascular: Regular rate, Normal S1, Normal S2, No murmurs, no chest wall tenderness Abdominal: Normal bowel sounds, Soft, No tenderness, No hepatospenomegaly, No masses Extremities: Swelling and redness of rt elbow, No clubbing, No cyanosis, No edema, Normal pulses. Skin: No rashes, No breakdown, No significant lesion Neuro: Normal gait, Normal speech, Strength at 5/5 X4 ext, Normal tone, Sensation intact, Cranial nerves 3-12 NL, Reflexes 2+ Psych/Mental Status: Mental status NL, Mood N laboratory and microbiology Laboratory Tests 01/10/25 05:24 Test 01/10/25 05:24 Range/Units Serum Glucose 151 H 74-106 mg/dL Microbiology Date/Time Source Procedure Growth Status 01/07/25 19:28 Elbow Right Gram Stain - Final Resulted 01/07/25 19:28 Elbow Right Wound Culture - Preliminary Resulted 01/07/25 14:04 Blood Blood Culture - Preliminary NO GROWTH AFTER 48 HOURS OF INCUBATION. 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 - FENa 3.4% - kidney ultrasound demonstrated bilateral medical renal disease - Scheduled for I and D of right elbow today - continue IV antibiotics as per primary - Mild ISS - strict I&O - avoid nephrotoxic medication - monitor BMP Thank you so much for the opportunity to consult on your patient. Nephro team will follow the patient. In case of any questions or concerns please feel free to reach out. Plan discussed with Dr. Nichole . The patient and caregiver team agreed to the plan. Plan discussed with: Patient, Other (RN) My Orders My Orders Orders - SUKHDEEP SAENZ Procedure Category Date Status Time Dietary NOTICE 01/09/25 Transmitted Recommendations 13:56 Dietary Evaluation Review Comments: Nutrition Recommendation: 1) [place] 1 pk daily 2) CCHO 60gm + cardiac diet 3) Monitor PO intake, lab values, weight trend, and I/O Expected Outcomes/Goals: Wound to improve Lab values to improve Fu 3-5 days SUKHDEEP SAENZ RESIDENT Jan 10, 2025 10:28
--- NOTE | 2025-01-10 10:33 | DVHPN2 ---
Subjective The patient is seen and examined at bedside. The patient is status post I&D of the elbow. Reviewed: Care Plan, H&P, Labs, Medications, Previous Orders, Radiology Changes from previous H/P or p: No Changes Objective Vitals Vital Signs Date Time Temp Pulse Resp B/P (MAP) Pulse Ox O2 Delivery O2 Flow Rate FiO2 01/10/25 09:00 98.0 69 17 139/82 (101) 100 98.0 01/09/25 20:00 Room Air* 0 21 Intake/Output Intake and Output 01/10/25 07:00 Intake Total 1425 ml Output Total 251 ml Balance 1174 ml Intake Oral 1275 ml IV Total 150 ml Output Urine Total 250 ml Stool Total 1 ml # Voids 2 General Appearance: Alert, Oriented X3, Cooperative, No acute distress HEENT: Atraumatic, PERRLA, EOMI, Mucous membr. moist/pink Neck: Supple Lungs: Clear to auscultation, Normal air movement Cardiovascular: Regular rate, Normal S1, Normal S2, No murmurs, Gallops, Rubs Abdomen: Normal bowel sounds, Soft, No tenderness Neuro: Cranial nerves 3-12 NL Psych/Mental Status: Mental status NL Medications Current Medications Medications Dose Ordered Sig/Ricky Route Start Time Stop Time Status Last Admin Dose Admin Vancomycin HCl 0 ml @ 0 mls/hr UD IV 01/07/25 19:30 Cefepime HCl 50 ml @ 12.5 mls/hr DAILY IV 01/08/25 10:00 01/10/25 09:16 12.5 MLS/HR Acetaminophen/ Hydrocodone Bitart 1 tab Q4HP PRN PO 01/07/25 19:30 01/09/25 17:03 1 TAB Ondansetron HCl 4 mg Q4HP PRN IV 01/07/25 19:30 Acetaminophen 650 mg Q6HP PRN PO 01/07/25 19:30 Metoprolol Succinate 50 mg DAILY PO 01/08/25 10:00 01/09/25 09:12 50 MG Atorvastatin Calcium 40 mg HS PO 01/08/25 22:00 01/09/25 21:07 40 MG Laboratory Results Laboratory Tests 01/10/25 05:24 Chemistry Test 01/10/25 05:24 Calcium Level 8.6 mg/dL (8.7-10.4) L Urinalysis Test 01/08/25 00:00 01/08/25 10:12 Urine Protein/Creatinine Ratio 1.75 Urine Total Protein 86.7 mg/dL (1-14) H Urine Color Light-yellow (Yellow) Urine Clarity Clear (Clear) Urine pH 5.5 (5.0-9.0) Urine Specific [place] 1.013 (1.001-1.035) Urine Protein 1+ (Negative) H Urine Ketones Negative (Negative) Urine Blood Negative /uL (Negative) Urine Nitrite Negative (Negative) Urine Bilirubin Negative (Negative) Urine Urobilinogen Normal mg/dL (Negative) Urine Leukocyte Esterase Negative /uL (Negative) Urine RBC 1 /hpf (0 - 3) Urine Microscopic WBC < 1 /HPF (0-3) Urine Squamous Epithelial Cells Few /hpf (<5) Urine Bacteria None seen /hpf (None Seen) Urine Hyaline Casts Few /lpf (0 - 2) Urine Creatinine 52.51 mg/dL (30.0-125.0) Urine Sodium 123 mmol/L (40-220) Urine Glucose 2+ mg/dL (Normal) H Microbiology Microbiology Date/Time Source Procedure Growth Status 01/07/25 19:28 Elbow Right Gram Stain - Final Resulted 01/07/25 19:28 Elbow Right Wound Culture - Preliminary Resulted 01/07/25 14:04 Blood Blood Culture - Preliminary NO GROWTH AFTER 48 HOURS OF INCUBATION. Resulted Labs and/or images reviewed: Labs reviewed by me Assessment/Plan Assessment/Plan Right elbow cellulitis with the small fluid collection seen on CT of the elbow Hypertension Acute on chronic renal failure Diabetes mellitus Continuing current management. Continuing with IV antibiotic take vancomycin and cefepime. We will monitor kidney function. Continuing sliding scale insulin. Continuing pain medication with IV morphine and [place]. This medical document was created using an electronic medical record system with [employer] direct computerized dictation system. Although this document has been carefully reviewed, there may still be some phonetic and typographical errors. These areas are purely typographical due to imperfections of the software programs, and do not reflect any compromise in the patient's medical care. Plan discussed with: Patient Date of Service: Jan 10, 2025 Billing Provider: BOBBY PAL MD Common Visit Codes: [id number] INP/OBS CARE(HIGH) BOBBY PAL MD Jan 10, 2025 10:33
[2025-01-10] MEDS ORDERED: PROPOFOL 10 MG/ML 20 ML IV ONE ×2 (10:48→13:20)
[2025-01-10] MEDS ORDERED: LIDOCAINE 1% INJ PF 5ML AMP ONE (10:48)
[2025-01-10] MEDS ORDERED: ONDANSETRON HCL 4 MG/2 ML VIAL ONE (10:48)
[2025-01-10] MEDS ORDERED: KETOROLAC TROMETH 30 MG/ML 1ML VIAL ONE (10:48)
[2025-01-10] MEDS ORDERED: GLYCOPYRROLATE 0.2 MG/ML 1ML VIAL ONE (10:48)
[2025-01-10] MEDS ORDERED: SODIUM CHLORIDE LOCK 10 ML ONE (10:49)
[2025-01-10] MEDS: VANCOMYCIN 500mg/100mL 100 ML IV ONE (11:14)
--- NOTE | 2025-01-10 12:49 | DVH ---
EXAM: XY CHEST XRAY 1 VIEW Indication: pain Technique: Single frontal view of the chest was obtained Comparison: None FINDINGS: Lines and Tubes: None Lungs: No focal consolidation. Pleura: No effusion. No pneumothorax. Cardiomediastinal contours: Unremarkable Bones: No acute osseous abnormality. IMPRESSION: No acute cardiopulmonary disease.
--- NOTE | 2025-01-10 13:31 | DVHOP2 ---
Operative Report - 2 Report Details Date: 01/10/25 Preop Diagnosis: Right elbow infected olecranon bursitis Postop Diagnosis: Right elbow infected olecranon bursitis Surgeon: Yolanda Reyna MD Anesthesiologist: Khalif Hopper CRNA Anesthesia: Mac, Regional Drains: Meera Consent: The patient was informed of the risks and benefits of the procedure. These include but are not limited to complications of anesthesia, postoperative infection, incomplete relief of symptoms, recurrence of symptoms, damage to blood vessels, nerves and tendons, deep venous thrombosis, pulmonary embolism and possible need for repeat surgery in the future. Complications: None Estimated Blood Loss: Less than 5 cc Fluids: See anesthesia record Findings: Swelling, erythema with small punctate drainage right olecranon bursa Indications for Surgery: Right elbow infected olecranon bursitis Name of Procedure Performed Incision and drainage right olecranon infected bursitis Procedure Details Procedure Details: Patient was brought to the operating room and given conscious sedation along with a right upper extremity regional block. Right upper extremity was prepped and draped in sterile fashion. Surgical time-out was performed verifying patient, laterality, and procedure. I then made incision over the olecranon bursa and purulent exudate immediately extruded. I used a Coleen in spreading fashion to break up adhesions. I irrigated with normal saline bulb syringe. Swabs were obtained and specimen sent for Gram stain aerobic anaerobic culture. I placed a Meera drain in 70 wound with 2-0 nylon. I placed an additional two stitches with a nylon. Wound was dressed sterilely. Patient tolerated the procedure well was brought to recovery room in stable condition. Condition Stable Disposition Still a Patient YOLANDA REYNA MD Jan 10, 2025 13:31
[2025-01-10] MEDS: ACETAMINOPHEN IV 1000 MG/100ML (10MG/ML) IV ONE (13:40)
[2025-01-10] MEDS: ACETAMINOPHEN IV 100 ML IV ONE (13:40)
[2025-01-10] MEDS ORDERED: hydrALAZINE HCL 20 MG/ML VL IV PRN (13:45)
[2025-01-10] MEDS ORDERED: fentaNYL CITRATE 100 MCG/2 ML VL IV PRN (13:45)
[2025-01-10] MEDS ORDERED: FLUMAZENIL 0.1 MG/ML INJ 10ML MDV IV PRN (13:45)
[2025-01-10] MEDS ORDERED: NALOXONE HCL 0.4 MG/ML VIAL IV PRN (13:45)
[2025-01-10] MEDS ORDERED: ONDANSETRON HCL 4 MG/2 ML VIAL IV PRN (13:45)
[2025-01-10] MEDS ORDERED: HYDROmorphone HCL 2 MG/ML VL/or syr IV PRN (13:45)
[2025-01-11] VITALS (11 sets, daily range): BP systolic 117–175; BP diastolic 75–93; PULSE 79–99; RESP 16–19; TEMP 97.7–98.4; O2SAT 95–100
[2025-01-11 04:54] LABS: Anion Gap 11 (5-15); Carbon Dioxide 21 mmol/L (20-31); Chloride 102 mmol/L (98-107)
[2025-01-11 04:55] LABS: Calcium 9.3 mg/dL (8.7-10.4)
[2025-01-11 04:57] LABS: Potassium 5.3 mmol/L (3.5-5.1); Sodium 134 mmol/L (136-145)
[2025-01-11 05:00] LABS: BUN/Creatinine Ratio 13.8 (10.0-20.0); Blood Urea Nitrogen 26 mg/dL (9-23); Glucose 365 mg/dL (74-106)
[2025-01-11] MEDS ORDERED: METO-289 PO (06:57)
--- NOTE | 2025-01-11 07:56 | ECG ---
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
--- NOTE | 2025-01-11 07:56 | ECG ---
[facility] Test Date: 2025-01-09 Test Time: 23:04:02 Pat Name: LUCERO SIGALA Department: Room: 0208T Gender: M Svp: [id number] : 1950 Requested By: BOBBY PAL Order Number: [id number] Reading MD: Vickey Wilcox Measurements Intervals [place] Rate: 69 P: 66 MS: 163 QRS: 65 QRSD: 99 T: 83 QT: 399 QTc: 428 Interpretive Statements Sinus rhythm Probable left ventricular hypertrophy ST elevation, consider anterior injury Electronically Signed On 01-15-2025 21:35:35 PDT by Vickey Wilcox Please click the below link to view image of tracing.
[2025-01-11] MEDS ORDERED: DEXTROSE (50%) 50ML SYRG IV ONE (08:45)
[2025-01-11] MEDS: ALBUTEROL SULF 2.5 MG/0.5ML(0.5%) NEB SOLN NEB ONE (08:49)
[2025-01-11] MEDS: FUROSEMIDE 20 MG/2 ML VIAL IV ONE (09:54)
[2025-01-11] MEDS: SODIUM ZIRCONIUM CYCL 10 GM PAK PO ONE (09:55)
[2025-01-11] MEDS: InsuLIN REG 1unit/0.01ml Soln (100units/ml) IV ONE (09:56)
--- NOTE | 2025-01-11 10:53 | DVHPN2 ---
Progress Note Date Seen: Jan 11, 2025 Resident Creating Document: SUKHDEEP SAENZ RESIDENT Medical Necessity Reason Pt with a Central, PICC or Fol: No Subjective Review of Systems patient was seen and examined on the bedside. He is alert oriented x3. complaint of left sided sharp chest pain, 10/10. EKG revealed sinus rhythm, no ST-T changes. S/P I&D of right elbow day 1. Objective vital signs Vital Sign Date Time Temp Pulse Resp B/P (MAP) Pulse Ox O2 Delivery O2 Flow Rate FiO2 01/11/25 09:55 156/76 01/11/25 09:31 88 18 100 01/11/25 09:00 98.1 98.1 01/11/25 08:50 Room Air* 0 21 Total Intake and Output 01/10/25 01/10/25 01/11/25 15:00 23:00 07:00 Intake Total 100 ml 0 ml 670 ml Output Total 600 ml Balance 100 ml 0 ml 70 ml medications Current Medications Medications Dose Ordered Sig/Ricky Route Start Time Stop Time Status Last Admin Dose Admin Vancomycin HCl 0 ml @ 0 mls/hr UD IV 01/07/25 19:30 Cefepime HCl 50 ml @ 12.5 mls/hr DAILY IV 01/08/25 10:00 01/11/25 09:55 12.5 MLS/HR Acetaminophen/ Hydrocodone Bitart 1 tab Q4HP PRN PO 01/07/25 19:30 01/11/25 08:29 1 TAB Ondansetron HCl 4 mg Q4HP PRN IV 01/07/25 19:30 Acetaminophen 650 mg Q6HP PRN PO 01/07/25 19:30 Metoprolol Succinate 50 mg DAILY PO 01/08/25 10:00 01/10/25 17:23 50 MG Atorvastatin Calcium 40 mg HS PO 01/08/25 22:00 01/10/25 21:15 40 MG Oxycodone HCl 10 mg ONCE PRN PO 01/10/25 13:45 01/10/25 23:31 10 MG Hydralazine HCl 25 mg Q8HR PO 01/11/25 14:00 Examination Physical examination: General Appearance: Alert, Oriented X3, Cooperative, No acute distress HEENT: Atraumatic, PERRLA, EOMI, Mucous membrane moist/pink Respiratory: Clear to auscultation, Normal air movement Cardiovascular: Regular rate, Normal S1, Normal S2, No murmurs, no chest wall tenderness Abdominal: Normal bowel sounds, Soft, No tenderness, No hepatospenomegaly, No masses Extremities: Surgical dressing covering rt elbow, No clubbing, No cyanosis, No edema, Normal pulses. Skin: No rashes, No breakdown, No significant lesion Neuro: Normal gait, Normal speech, Strength at 5/5 X4 ext, Normal tone, Sensation intact, Cranial nerves 3-12 NL, Reflexes 2+ Psych/Mental Status: Mental status NL, Mood N laboratory and microbiology Laboratory Tests 01/11/25 04:16 01/10/25 05:24 Test 01/11/25 04:16 Range/Units Serum Glucose 365 #H 74-106 mg/dL Microbiology Date/Time Source Procedure Growth Status 01/10/25 13:17 Elbow Gram Stain Pending Resulted 01/10/25 13:17 Elbow Wound Culture - Preliminary Resulted 01/07/25 14:04 Blood Blood Culture - Preliminary NO GROWTH AFTER 72 HOURS OF INCUBATION. 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 - FENa 3.4% - kidney ultrasound demonstrated bilateral medical renal disease - Continue metoprolol 50 XL p.o. daily and hydralazine 25 mg Q 8 hours for optimize control of blood pressure - S/P I&D of rt elbow day 1 - continue IV antibiotics as per primary - Moderate ISS - strict I&O - avoid nephrotoxic medication - monitor BMP Thank you so much for the opportunity to consult on your patient. Nephro team will follow the patient. In case of any questions or concerns please feel free to reach out. Plan discussed with Dr. Hernandez . The patient and caregiver team agreed to the plan. Plan discussed with: Patient, Daughter, Other (RN) My Orders My Orders Orders - SUKHDEEP SAENZ Procedure Category Date Status Time Hydralazine Hcl PHA 01/11/25 In Process Tablet (Apresoline 14:00 Dietary Evaluation Review Comments: Nutrition Recommendation: 1) [place] 1 pk daily 2) CCHO 60gm + cardiac diet 3) Monitor PO intake, lab values, weight trend, and I/O Expected Outcomes/Goals: Wound to improve Lab values to improve Fu 3-5 days SUKHDEEP SAENZ RESIDENT Jan 11, 2025 10:53
[2025-01-11] MEDS: VANCOMYCIN 500mg/100mL 100 ML IV ONE (12:00)
--- NOTE | 2025-01-11 12:18 | DVHPN2 ---
Subjective The patient is seen and examined at bedside. The patient is status post I&D of the elbow. Complains of chest pain Reviewed: Care Plan, H&P, Labs, Medications, Previous Orders, Radiology Changes from previous H/P or p: No Changes Objective Vitals Vital Signs Date Time Temp Pulse Resp B/P (MAP) Pulse Ox O2 Delivery O2 Flow Rate FiO2 01/11/25 09:55 156/76 01/11/25 09:31 88 18 100 01/11/25 09:00 98.1 98.1 01/11/25 08:50 Room Air* 0 21 Intake/Output Intake and Output 01/11/25 07:00 Intake Total 770 ml Output Total 600 ml Balance 170 ml Intake Oral 670 ml IV Total 100 ml Output Urine Total 600 ml General Appearance: Alert, Oriented X3, Cooperative, No acute distress HEENT: Atraumatic, PERRLA, EOMI, Mucous membr. moist/pink Neck: Supple Lungs: Clear to auscultation, Normal air movement Cardiovascular: Regular rate, Normal S1, Normal S2, No murmurs, Gallops, Rubs Abdomen: Normal bowel sounds, Soft, No tenderness Neuro: Cranial nerves 3-12 NL Psych/Mental Status: Mental status NL Medications Current Medications Medications Dose Ordered Sig/Ricky Route Start Time Stop Time Status Last Admin Dose Admin Vancomycin HCl 0 ml @ 0 mls/hr UD IV 01/07/25 19:30 Cefepime HCl 50 ml @ 12.5 mls/hr DAILY IV 01/08/25 10:00 01/11/25 09:55 12.5 MLS/HR Ondansetron HCl 4 mg Q4HP PRN IV 01/07/25 19:30 Metoprolol Succinate 50 mg DAILY PO 01/08/25 10:00 01/10/25 17:23 50 MG Atorvastatin Calcium 40 mg HS PO 01/08/25 22:00 01/10/25 21:15 40 MG Oxycodone HCl 10 mg ONCE PRN PO 01/10/25 13:45 01/10/25 23:31 10 MG Hydralazine HCl 25 mg Q8HR PO 01/11/25 14:00 Acetaminophen/ Hydrocodone Bitart 1 tab Q6HPRN PRN PO 01/11/25 11:00 Laboratory Results Laboratory Tests 01/10/25 05:24 01/11/25 04:16 Chemistry Test 01/11/25 04:16 Calcium Level 9.3 mg/dL (8.7-10.4) Urinalysis Test 01/08/25 00:00 01/08/25 10:12 Urine Protein/Creatinine Ratio 1.75 Urine Total Protein 86.7 mg/dL (1-14) H Urine Color Light-yellow (Yellow) Urine Clarity Clear (Clear) Urine pH 5.5 (5.0-9.0) Urine Specific [place] 1.013 (1.001-1.035) Urine Protein 1+ (Negative) H Urine Ketones Negative (Negative) Urine Blood Negative /uL (Negative) Urine Nitrite Negative (Negative) Urine Bilirubin Negative (Negative) Urine Urobilinogen Normal mg/dL (Negative) Urine Leukocyte Esterase Negative /uL (Negative) Urine RBC 1 /hpf (0 - 3) Urine Microscopic WBC < 1 /HPF (0-3) Urine Squamous Epithelial Cells Few /hpf (<5) Urine Bacteria None seen /hpf (None Seen) Urine Hyaline Casts Few /lpf (0 - 2) Urine Creatinine 52.51 mg/dL (30.0-125.0) Urine Sodium 123 mmol/L (40-220) Urine Glucose 2+ mg/dL (Normal) H Microbiology Microbiology Date/Time Source Procedure Growth Status 01/10/25 13:17 Elbow Gram Stain Pending Resulted 01/10/25 13:17 Elbow Wound Culture - Preliminary Resulted 01/07/25 14:04 Blood Blood Culture - Preliminary NO GROWTH AFTER 72 HOURS OF INCUBATION. Resulted Labs and/or images reviewed: Labs reviewed by me Assessment/Plan Assessment/Plan Right elbow cellulitis with the small fluid collection seen on CT of the elbow Hypertension Acute on chronic renal failure Diabetes mellitus Chest pain with abnormal EKG (review by me) Continuing current management. Continuing with IV antibiotic take vancomycin and cefepime. We will monitor kidney function. Continuing sliding scale insulin. Continuing pain medication with IV morphine and [place]. Nitrostat 0.4mg sl q5 min PRN for chest pain. Maximum three dosage per 15 minutes Cardiology consult This medical document was created using an electronic medical record system with [employer] direct computerized dictation system. Although this document has been carefully reviewed, there may still be some phonetic and typographical errors. These areas are purely typographical due to imperfections of the software programs, and do not reflect any compromise in the patient's medical care. Plan discussed with: Patient Date of Service: Jan 11, 2025 Billing Provider: BOBBY PAL MD Common Visit Codes: [id number] INP/OBS CARE(HIGH) BOBBY PAL MD Jan 11, 2025 12:18
[2025-01-11] MEDS ORDERED: NITROGLYCERIN 0.4 MG SL TAB SL PRN (12:30)
[2025-01-11] MEDS: ONDANSETRON HCL 4 MG/2 ML VIAL IV PRN (12:34)
[2025-01-11] MEDS ORDERED: DEXTROSE (50%) 50ML SYRG IV PRN ×2 (13:30)
[2025-01-11] MEDS: HYDROcodone-ACET 5/325MG TAB PO PRN (15:31)
[2025-01-11] MEDS ORDERED: ACCU-CHEK COMFORT CURVE STRIP VI SCH (17:00)
[2025-01-11] MEDS ORDERED: InsuLIN REG 1unit/0.01ml Soln (100units/ml) SC SCH (17:00)
[2025-01-11] MEDS: ACCU-CHEK COMFORT CURVE STRIP VI SCH (17:00)
--- NOTE | 2025-01-11 17:17 | DVHINCON2 ---
Date Seen: Jan 11, 2025 Referring Physician MD Samia Reason for Consultation Chest pain History of Present Illness This is a Estonian-speaking 74-year-old man who presented to the emergency room with a chief complaint of right elbow pain for three days. The patient reports a mechanical fall injury approximately a month ago stating he got infected and worsening symptoms during the past three days prior to arrival. During admission the patient developed chest pain described as substernal, nonradiating, pressure-like, and intermittent for which he was medicated with NTG SL 0.4 mg x 1 with relief of symptoms. At this time, the patient is not admitted to the telemetry unit to review cardiac events neither there is a baseline troponin level documented. Upon arrival on 01/09/2025 he underwent m ultiple 12 lead electrocardiogram revealing a sinus rhythm with ST elevation to anteroseptal and inferior leads. A subsequent 12 lead electrocardiogram was performed at bedside upon evaluation revealing a sinus rhythm with inferior Q- waves and anteroseptal ST-T wave changes. Significant medical history includes hypertension, dyslipidemia, chronic kidney stage III, and dementia. Family History: Patient reports no known family medical history. Allergies: Coded Allergies: Cephalexin (Verified Allergy, Unknown, 01/07/25) Home Meds Reported Medications Metoprolol Succinate (Metoprolol Succinate Er) 50 Mg Tab, 1 TAB PO DAILY, #30 TAB 5 Refills 01/11/25 Current Medications Current Medications Medications (Trade) Dose Ordered Sig/Ricky Route PRN Reason Start Time Stop Time Status Last Admin Hydralazine HCl (Apresoline Tablet) 25 mg Q8HR PO 01/11/25 14:00 01/11/25 15:31 Acetaminophen/ Hydrocodone Bitart ([place] 5/325MG Tab) 1 tab Q6HPRN PRN PO MODERATE PAIN (4-6 PAIN SCALE) 01/11/25 11:00 01/11/25 15:31 Nitroglycerin (Ntrostat Sublingual) 0.4 mg Q5MINP PRN SL FOR CHEST PAIN 01/11/25 12:30 Diagnostic Test (Pha) (Accu-Chek Comfort Curve T) 1 strip ACHS 01/11/25 17:00 01/11/25 14:01 DC Insulin Human Regular (InsuLIN R) HS SC 01/11/25 22:00 Insulin Human Regular (InsuLIN R) AC SC 01/11/25 17:00 01/11/25 14:01 DC Dextrose 50 ml UD PRN IV Blood Sugar LESS THAN 60 01/11/25 13:30 01/11/25 14:01 DC Diagnostic Test (Pha) (Accu-Chek Comfort Curve T) 1 strip ACHS 01/11/25 17:00 Insulin Human Regular (InsuLIN R) AC SC 01/11/25 17:00 Dextrose 50 ml UD PRN IV Blood Sugar LESS THAN 60 01/11/25 13:30 Insulin Glargine (Lantus) 30 units HS AR 01/11/25 22:00 Vital Signs Vital Signs Date Time Temp Pulse Resp B/P (MAP) Pulse Ox O2 Delivery O2 Flow Rate FiO2 01/11/25 15:31 120/63 01/11/25 13:00 97.7 99 16 100 97.7 01/11/25 10:00 Room Air 0.0 01/11/25 10:00 21 Labs/Diagnostic Data Labs Test 01/11/25 16:51 01/11/25 04:16 01/10/25 05:24 01/09/25 06:27 Range/Units Sodium Level 134 L 136-145 mmol/L Potassium Level 5.3 H 3.5-5.1 mmol/L Chloride Level 102 98-107 mmol/L Carbon Dioxide Level 21 20-31 mmol/L Anion Gap 11 5-15 Blood Urea Nitrogen 26 H 9-23 mg/dL Creatinine 1.89 H 0.700-1.30 mg/dL Glomerular Filtration Rate Calc 36 >90 mL/min BUN/Creatinine Ratio 13.8 10.0-20.0 Serum Glucose 365 #H 74-106 mg/dL Calcium Level 9.3 8.7-10.4 mg/dL Random Vancomycin Level 11.8 H 5-10 ug/mL White Blood Count 4.7 4.4-10.8 10^3/uL Red Blood Count 3.64 L 4.5-5.90 10^6/uL Hemoglobin 10.9 L 13.5-17.5 g/dL Hematocrit 31.4 L 41.0-53.0 % Mean Corpuscular Volume 86.2 80.0-100.0 fL Mean Corpuscular Hemoglobin 29.9 28.0-32.0 pg Mean Corpuscular Hemoglobin Concent 34.7 32.0-36.0 g/dL Red Cell Distribution Width 12.9 11.8-14.3 % Platelet Count 170 140-450 10^3/uL Mean Platelet Volume 8.6 6.9-10.8 fL Neutrophils (%) (Auto) 59.6 37.0-80.0 % Lymphocytes (%) (Auto) 27.8 10.0-50.0 % Monocytes (%) (Auto) 7.5 0.0-12.0 % Eosinophils (%) (Auto) 4.8 0.0-7.0 % Basophils (%) (Auto) 0.3 0.0-2.0 % Neutrophils # (Auto) 2.8 1.6-8.6 10 ^3/uL Lymphocytes # (Auto) 1.3 0.4-5.4 10 ^3/uL Monocytes # (Auto) 0.4 0-1.3 10 ^3/uL Eosinophils # (Auto) 0.2 0-0.8 10 ^3/uL Basophils # (Auto) 0 0-0.2 10 ^3/uL Nucleated Red Blood Cells 0.1 % Phosphorus Level 3.6 2.4-5.1 mg/dL Test 01/08/25 10:12 01/08/25 05:00 01/08/25 00:00 01/07/25 23:23 Range/Units Urine Color Light-yellow Yellow Urine Clarity Clear Clear Urine pH 5.5 5.0-9.0 Urine Specific [place] 1.013 1.001-1.035 Urine Protein 1+ H Negative Urine Ketones Negative Negative Urine Blood Negative Negative /uL Urine Nitrite Negative Negative Urine Bilirubin Negative Negative Urine Urobilinogen Normal Negative mg/dL Urine Leukocyte Esterase Negative Negative /uL Urine RBC 1 0 - 3 /hpf Urine Microscopic WBC < 1 0-3 /HPF Urine Squamous Epithelial Cells Few <5 /hpf Urine Bacteria None seen None Seen /hpf Urine Hyaline Casts Few 0 - 2 /lpf Urine Creatinine 52.51 30.0-125.0 mg/dL Urine Sodium 123 40-220 mmol/L Urine Glucose 2+ H Normal mg/dL Hemoglobin A1c 7.7 H <5.7 % A1C Uric Acid 7.9 3.7-9.2 mg/dL Hepatitis B Surface Antigen Negative Negative Hepatitis C Antibody Negative Negative Urine Protein/Creatinine Ratio 1.75 Urine Total Protein 86.7 H 1-14 mg/dL POC Glucose 162 H 70-106 mg/dl Test 01/07/25 14:09 01/07/25 14:04 Range/Units Erythrocyte Sedimentation Rate 92 H 0-20 mm/hr Lactic Acid Level 1.1 0.4-2.0 mmol/L Microbiology Date/Time Source Procedure Growth Status 01/10/25 13:17 Elbow Gram Stain - Final Resulted 01/10/25 13:17 Elbow Wound Culture - Preliminary Resulted 01/10/25 13:17 Rectum Gram Stain - Final Resulted 01/10/25 13:17 Rectum Wound Culture Pending Resulted 01/07/25 14:04 Blood Blood Culture - Preliminary NO GROWTH AFTER 72 HOURS OF INCUBATION. Resulted Assessment NSTEMI, questionable type I Rule out structural heart disease Hypertensive urgency Diabetes mellitus, newly diagnosed Dyslipidemia 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 Wilcox) Case discussed with Dr. Wilcox. We will continue further cardiac evaluation with a transthoracic echocardiogram to evaluate cardiac function. Obtain baseline troponin level and twelve-lead electrocardiogram. Transfer to telemetry. Load on ASA and continue maintenance dose as well as lipid lowering agent. Initiate heparin drip per pharmacy protocol. The patient will be offered a cardiac catheterization with coronary angiogram to evaluate for coronary artery disease. Continue aggressive blood pressure control and titrate as tolerated for a target SBP < 140 mmHg. Monitor ECG changes closely and notify. Thank you for allowing us to participate in this patient's care. Please call if you have any questions or concerns. Critical care time: 45 min. This medical document was created using an [employer] medical record system with voice recognition software and computerized dictation system. Although this document has been carefully reviewed, there might still be some phonetic and typographical errors. Occasional wrong-word or ``sound-alike substitutions may have occurred due to the inherent limitations of voice recognition software. These areas are purely typographical due to imperfections of the software programs and do not reflect any compromise in the patient's medical care. Please read the chart carefully and recognize, using context, where these substitutions have occurred. Plan discussed with: Patient, Other NYHA Physical activity limitations: NA Date of Service: Jan 11, 2025 Billing Provider: NELLIE HILARIO Cardiology Common Codes: [id number] CARE 30-74 MIN NELLIE HILARIO Jan 11, 2025 17:17
[2025-01-11] MEDS: InsuLIN REG 1unit/0.01ml Soln (100units/ml) SC SCH ×2 (18:01→22:00)
[2025-01-11 18:53] LABS: Hematocrit 34.4 % (41.0-53.0); Hemoglobin 11.3 g/dL (13.5-17.5); Mean Corpuscular Hemoglobin 29.4 pg (28.0-32.0); Mean Corpuscular Volume 89.9 fL (80.0-100.0); Nucleated Red Blood Cells % 0.0 %
--- NOTE | 2025-01-11 18:58 | DVHSR ---
APPROVED REPORT EXAM: Two-dimensional and M-mode echocardiogram with Doppler and color Doppler. Blood Pressure: 156/76 mmHg INDICATION Chest Pain RISK FACTORS Height: 5'7", Weight: 138 DIMENSIONS LVDd3.0 (3.8-5.7cm)LA (2D)2.9 (1.9-4.0cm)Aortic Root2.8 (2.0-3.7cm) LVDs1.7 (2.5-4.0cm)LA (MM) (1.9-4.0cm)Aortic Cusp Exc1.5 (1.5-2.0cm) EF (%) 76.0 (55-70%)Rt. Atrium2.6 (1.9-4.0cm)Asc. Aorta2.8 cm IVSd1.2 (0.7-1.1cm)RV (D)2.6 (1.8-2.4cm) PWd1.2 (0.7-1.1cm) Mitral Valve MitralMitral Stenosis E wave0.82m/sMV Mean GR.mmHg A wave1.77m/sMV Peak GR.mmHg E/A ratio0.52D MVAcm2 DECEL [id number] 1/2 Timems Aortic Valve Aortic ValveAortic Stenosis V11.44m/Jai Mean GR.28mmHg V24.27m/Jai Peak GR.73mmHg LVOT Diameter1.8 (1.8-2.4cm)Doppler AVA0.86cm2 Pulmonic Valve V21.99m/s Tricuspid Valve TR Velocity1.85m/s [id number] Conclusion MILD LVH AND MILD LV DIASTOLIC DYSFUNCTION LV EF IS 65% CRITICAL AORTIC STENOSIS PEAK AORTIC VALVE GRADIENT IS 73 AND MEAN GRADIENT IS 28 MM OF HG AORTIC VALVE AREA IS 0,86 CM SQUARE CRITICAL AORTIC STENOSIS POSTERIOR MV CALCIFIED NO EFFUSION
[2025-01-11 19:07] LABS: Magnesium 2.0 mg/dL (1.6-2.6); Triglycerides 110.0 mg/dL (< 150)
[2025-01-11 19:09] LABS: Cholesterol 137.0 mg/dL (< 200)
[2025-01-11 19:17] LABS: HDL Cholesterol 39.0 mg/dL (40-59)
[2025-01-11] MEDS ORDERED: HEPARIN DRIP/D5W 100UNITS/ML 250 ML IV SCH (19:30)
[2025-01-11 19:42] LABS: INR 1.02 (0.9-1.15); Partial Thromboplastin Time 21.8 SEC (24.5-34.5); Prothrombin Time 10.8 sec (9.3-11.8)
[2025-01-11] MEDS: HEPARIN SODIUM (PORCINE) 5000 UNITS/ML 1ML VIAL IV ONE (20:06)
[2025-01-11] MEDS: HEPARIN DRIP/D5W 100UNITS/ML 250 ML IV SCH (20:10)
[2025-01-11] MEDS: INSULIN LANTUS (GLARGINE) 1 /0.01ml (100units/ml) SC SCH (22:01)
[2025-01-12] VITALS (10 sets, daily range): BP systolic 112–128; BP diastolic 66–94; PULSE 67–80; RESP 12–18; TEMP 97.5–98; O2SAT 97–100
[2025-01-12 02:22] LABS: Hematocrit 30.7 % (41.0-53.0); Hemoglobin 10.6 g/dL (13.5-17.5); Mean Corpuscular Hemoglobin 29.9 pg (28.0-32.0); Mean Corpuscular Volume 86.3 fL (80.0-100.0); Nucleated Red Blood Cells % 0.1 %
[2025-01-12 02:31] LABS: Chloride 104 mmol/L (98-107); Potassium 3.9 mmol/L (3.5-5.1); Sodium 139 mmol/L (136-145)
[2025-01-12 02:32] LABS: Anion Gap 11 (5-15); Carbon Dioxide 24 mmol/L (20-31)
[2025-01-12 02:37] LABS: BUN/Creatinine Ratio 14.8 (10.0-20.0); Glucose 99 mg/dL (74-106); INR 1.02 (0.9-1.15); Partial Thromboplastin Time 53.3 SEC (24.5-34.5); Prothrombin Time 10.8 sec (9.3-11.8)
[2025-01-12 03:14] LABS: Blood Urea Nitrogen 32 mg/dL (9-23); Calcium 8.7 mg/dL (8.7-10.4)
[2025-01-12 06:47] LABS: INR 1.02 (0.9-1.15); Partial Thromboplastin Time 52.0 SEC (24.5-34.5); Prothrombin Time 10.8 sec (9.3-11.8)
--- NOTE | 2025-01-12 08:19 | CONS ---
Pharmacy Clinical Information: HEPARIN DRIP @0500 APTT= 52.0, NO BOLUS NO CHANGE NEXT APTT DRAW SCHEDULED @1100 PER RX PROTOCOL CONFIRMED AND READ BACK WITH RN PAULO CASTRO [facility] RESIDENT Jan 12, 2025 08:19
[2025-01-12] MEDS ORDERED: ENOXAPARIN SOD 30 MG/0.3 ML SYRINGE SC SCH (10:00)
--- NOTE | 2025-01-12 13:14 | DVHPN2 ---
Subjective The patient is seen and examined at bedside. The patient is status post I&D of the elbow. Complains of chest pain and tired. Reviewed: Care Plan, H&P, Labs, Medications, Previous Orders, Radiology Changes from previous H/P or p: No Changes Objective Vitals Vital Signs Date Time Temp Pulse Resp B/P (MAP) Pulse Ox O2 Delivery O2 Flow Rate FiO2 01/12/25 10:43 74 138/75 01/12/25 10:00 98 Room Air 0.0 01/12/25 10:00 21 01/12/25 09:00 97.6 18 97.6 Intake/Output Intake and Output 01/12/25 07:00 Intake Total 660 ml Output Total 750 ml Balance -90 ml Intake Oral 660 ml Output Urine Total 750 ml # Voids 3 General Appearance: Alert, Oriented X3, Cooperative, No acute distress HEENT: Atraumatic, PERRLA, EOMI, Mucous membr. moist/pink Neck: Supple Lungs: Clear to auscultation, Normal air movement Cardiovascular: Regular rate, Normal S1, Normal S2, No murmurs, Gallops, Rubs Abdomen: Normal bowel sounds, Soft, No tenderness Neuro: Cranial nerves 3-12 NL Psych/Mental Status: Mental status NL Medications Current Medications Medications Dose Ordered Sig/Ricky Route Start Time Stop Time Status Last Admin Dose Admin Vancomycin HCl 0 ml @ 0 mls/hr UD IV 01/07/25 19:30 Cefepime HCl 50 ml @ 12.5 mls/hr DAILY IV 01/08/25 10:00 01/12/25 10:43 12.5 MLS/HR Ondansetron HCl 4 mg Q4HP PRN IV 01/07/25 19:30 01/11/25 12:34 4 MG Metoprolol Succinate 50 mg DAILY PO 01/08/25 10:00 01/12/25 10:43 50 MG Atorvastatin Calcium 40 mg HS PO 01/08/25 22:00 01/11/25 21:55 40 MG Oxycodone HCl 10 mg ONCE PRN PO 01/10/25 13:45 01/10/25 23:31 10 MG Hydralazine HCl 25 mg Q8HR PO 01/11/25 14:00 01/12/25 06:37 25 MG Acetaminophen/ Hydrocodone Bitart 1 tab Q6HPRN PRN PO 01/11/25 11:00 01/12/25 06:37 1 TAB Nitroglycerin 0.4 mg Q5MINP PRN SL 01/11/25 12:30 Insulin Human Regular HS SC 01/11/25 22:00 01/11/25 22:00 4 UNITS Diagnostic Test (Pha) 1 strip ACHS 01/11/25 17:00 01/12/25 11:40 1 STRIP Insulin Human Regular AC SC 01/11/25 17:00 01/12/25 11:39 2 UNITS Dextrose 50 ml UD PRN IV 01/11/25 13:30 Insulin Glargine 30 units HS SC 01/11/25 22:00 01/11/25 22:01 30 UNITS Aspirin 81 mg DAILY PO 01/12/25 10:00 01/12/25 10:43 81 MG Heparin Sodium/ Dextrose 250 ml @ 8 mls/hr Q24H IV 01/11/25 19:30 Cancel Heparin Sodium/ Dextrose 250 ml @ 7 mls/hr Q24H IV 01/11/25 20:00 01/11/25 20:10 7 MLS/HR Laboratory Results Laboratory Tests 01/12/25 02:05 Chemistry Test 01/11/25 16:51 01/12/25 02:05 Magnesium Level 2.0 mg/dL (1.6-2.6) Calcium Level 8.7 mg/dL (8.7-10.4) Coagulation Test 01/11/25 18:33 01/12/25 02:05 01/12/25 05:00 01/12/25 11:42 Prothrombin Time 10.8 sec (9.3-11.8) 10.8 sec (9.3-11.8) 10.8 sec (9.3-11.8) Pending Prothrombin Time INR 1.02 (0.9-1.15) 1.02 (0.9-1.15) 1.02 (0.9-1.15) Pending Activated Partial Thromboplast Time 21.8 SEC (24.5-34.5) L 53.3 SEC (24.5-34.5) H 52.0 SEC (24.5-34.5) H Pending Lipid panel Test 01/11/25 16:51 Cholesterol Level 137 mg/dL (< 200) HDL Cholesterol 39 mg/dL (40-59) L Triglycerides Level 110 mg/dL (< 150) HgA1c, TSH Test 01/11/25 16:51 Thyroid Stimulating Hormone (TSH) 1.42 uIU/mL (0.55-4.78) Urinalysis Test 01/08/25 00:00 01/08/25 10:12 Urine Protein/Creatinine Ratio 1.75 Urine Total Protein 86.7 mg/dL (1-14) H Urine Color Light-yellow (Yellow) Urine Clarity Clear (Clear) Urine pH 5.5 (5.0-9.0) Urine Specific [place] 1.013 (1.001-1.035) Urine Protein 1+ (Negative) H Urine Ketones Negative (Negative) Urine Blood Negative /uL (Negative) Urine Nitrite Negative (Negative) Urine Bilirubin Negative (Negative) Urine Urobilinogen Normal mg/dL (Negative) Urine Leukocyte Esterase Negative /uL (Negative) Urine RBC 1 /hpf (0 - 3) Urine Microscopic WBC < 1 /HPF (0-3) Urine Squamous Epithelial Cells Few /hpf (<5) Urine Bacteria None seen /hpf (None Seen) Urine Hyaline Casts Few /lpf (0 - 2) Urine Creatinine 52.51 mg/dL (30.0-125.0) Urine Sodium 123 mmol/L (40-220) Urine Glucose 2+ mg/dL (Normal) H Microbiology Microbiology Date/Time Source Procedure Growth Status 01/10/25 13:17 Elbow Gram Stain - Final Resulted 01/10/25 13:17 Elbow Wound Culture - Preliminary Resulted 01/10/25 13:17 Rectum Gram Stain - Final Resulted 01/10/25 13:17 Rectum Wound Culture Pending Resulted 01/07/25 14:04 Blood Blood Culture - Preliminary NO GROWTH AFTER 72 HOURS OF INCUBATION. Resulted Labs and/or images reviewed: Labs reviewed by me Assessment/Plan Assessment/Plan Right elbow cellulitis with the small fluid collection seen on CT of the elbow Hypertension Acute on chronic renal failure Diabetes mellitus Chest pain with abnormal EKG (review by me) Severe Aortic Stenosis. Echo show: Mild LVH and mild LV diastolic dysfunction. LV EF is 65% Critical Aortic stenosis, Peak Aortic valve gradient is 73, and mean gradient is 28MM of Hg Posterior MV calcified. No effusion. Continuing current management. Continuing with IV antibiotic take vancomycin and cefepime. We will monitor kidney function. Continuing sliding scale insulin. Continuing pain medication with IV morphine and [place]. Nitrostat 0.4mg sl q5 min PRN for chest pain. Maximum three dosage per 15 minutes Appreciate Cardiology input. Per ambulance driver, patient need to transfer to higher level of care for Aortic valve replacement. I LYNSEY [place] cardiothoracic surgeon. He request the official echo result (at the time I spoke with him, the official report is not available yet), he also request cardiac cath. He decline to accept patient until all of result available and he will reevaluate to see if patient need to be transfer to higher level of care right away or outpatient management. LYNSEY outpatient case manager. Will [facility] cardiology service. This medical document was created using an electronic medical record system with [employer] direct computerized dictation system. Although this document has been carefully reviewed, there may still be some phonetic and typographical errors. These areas are purely typographical due to imperfections of the software programs, and do not reflect any compromise in the patient's medical care. Plan discussed with: Patient, Daughter My Orders Orders - BOBBY PAL MD Procedure Category Date Status Time Glucose Blood PHA 01/11/25 In Process (Accu-Chek Comfort 17:00 Dextrose 50% Syringe PHA 01/11/25 In Process 13:30 Insulin Lantus PHA 01/11/25 In Process (Glargine) (Lantus) 22:00 Insulin R (Human) PHA 01/11/25 In Process (Insulin R) 17:00 Date of Service: Jan 12, 2025 Billing Provider: BOBBY PAL MD Common Visit Codes: [id number] INP/OBS CARE(HIGH) BOBBY PAL MD Jan 12, 2025 13:14
[2025-01-12 13:18] LABS: INR 1.0 (0.9-1.15); Partial Thromboplastin Time 47.6 SEC (24.5-34.5); Prothrombin Time 10.6 sec (9.3-11.8)
--- NOTE | 2025-01-12 13:52 | CONS ---
Pharmacy Clinical Information: HEPARIN DRIP, ACS PROTOCOL @1350 APTT 47.6 - NO BOLUS, INCREASE BY 200 UNITS NEXT APTT DRAW SCHEDULED @1999 PER RX PROTOCOL CONFIRMED AND READ BACK WITH RN PAULO DOYLE [facility] RES[facility] Jan 12, 2025 13:52
[2025-01-12] MEDS: HEPARIN DRIP/D5W 100UNITS/ML 250 ML IV SCH (14:34)
[2025-01-12] MEDS ORDERED: KETAMINE 50mg/ML 1ml syringe IV ONE (15:01)
--- NOTE | 2025-01-12 16:05 | DVHPN2 ---
Progress Note Date Seen: Jan 12, 2025 Medical Necessity Reason Pt with a Central, PICC or Fol: No Subjective Patient reports: No new complaints, Feels better Objective vital signs Vital Sign Date Time Temp Pulse Resp B/P (MAP) Pulse Ox O2 Delivery O2 Flow Rate FiO2 01/12/25 15:25 123/78 01/12/25 13:00 98.0 70 12 99 98.0 01/12/25 10:00 Room Air 0.0 01/12/25 10:00 21 Total Intake and Output 01/11/25 01/11/25 01/12/25 15:00 23:00 07:00 Intake Total 300 ml 360 ml Output Total 750 ml Balance 300 ml -390 ml medications Current Medications Medications Dose Ordered Sig/Ricky Route Start Time Stop Time Status Last Admin Dose Admin Vancomycin HCl 0 ml @ 0 mls/hr UD IV 01/07/25 19:30 Cefepime HCl 50 ml @ 12.5 mls/hr DAILY IV 01/08/25 10:00 01/12/25 10:43 12.5 MLS/HR Ondansetron HCl 4 mg Q4HP PRN IV 01/07/25 19:30 01/11/25 12:34 4 MG Metoprolol Succinate 50 mg DAILY PO 01/08/25 10:00 01/12/25 10:43 50 MG Atorvastatin Calcium 40 mg HS PO 01/08/25 22:00 01/11/25 21:55 40 MG Oxycodone HCl 10 mg ONCE PRN PO 01/10/25 13:45 01/10/25 23:31 10 MG Hydralazine HCl 25 mg Q8HR PO 01/11/25 14:00 01/12/25 15:25 25 MG Acetaminophen/ Hydrocodone Bitart 1 tab Q6HPRN PRN PO 01/11/25 11:00 01/12/25 06:37 1 TAB Nitroglycerin 0.4 mg Q5MINP PRN SL 01/11/25 12:30 Insulin Human Regular HS SC 01/11/25 22:00 01/11/25 22:00 4 UNITS Diagnostic Test (Pha) 1 strip ACHS 01/11/25 17:00 01/12/25 11:40 1 STRIP Insulin Human Regular AC SC 01/11/25 17:00 01/12/25 11:39 2 UNITS Dextrose 50 ml UD PRN IV 01/11/25 13:30 Insulin Glargine 30 units HS SC 01/11/25 22:00 01/11/25 22:01 30 UNITS Aspirin 81 mg DAILY PO 01/12/25 10:00 01/12/25 10:43 81 MG Heparin Sodium/ Dextrose 250 ml @ 8 mls/hr Q24H IV 01/11/25 19:30 Cancel Heparin Sodium/ Dextrose 250 ml @ 9 mls/hr Q24H IV 01/12/25 14:00 01/12/25 14:34 9 MLS/HR Examination Gen: Patient appears stated age, NAD. Lungs: Bilateral air entry. No rales. CV: RRR, normal S1 and S2 Ext: No edema. Neuro: Alert and oriented x 4. laboratory and microbiology Laboratory Tests 01/12/25 02:05 Test 01/12/25 02:05 Range/Units Serum Glucose 99 # 74-106 mg/dL Microbiology Date/Time Source Procedure Growth Status 01/10/25 13:17 Elbow Gram Stain - Final Resulted 01/10/25 13:17 Elbow Wound Culture - Preliminary Resulted 01/10/25 13:17 Rectum Gram Stain - Final Resulted 01/10/25 13:17 Rectum Wound Culture Pending Resulted 01/07/25 14:04 Blood Blood Culture - Final NO GROWTH AFTER 5 DAYS OF INCUBATION. Complete Labs and/or images reviewed: Labs reviewed by me Problem List/Assessment/Plan Problem List/Assessment/Plan IMP 1. 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 Anemia of chronic disease- hgb 10.6 4. uncontrolled type 2 diabetes mellitus 5.Cellulitis of the right elbow- s/p I&D Plan: - BMP in am - Will continue monitoring kidney function daily - Blood pressure control - Glycemic control agree with current insulin sliding scale - Strict I&O's - Encourage oral intake - Avoidance of ACEIs/ARB and contrast studies if able during timecourse of LAVELL - Monitor vanco trough closely - Will continue to follow Plan discussed with: Patient, Daughter Dietary Evaluation Review Comments: Nutrition Recommendation: 1) [place] 1 pk daily 2) CCHO 60gm + cardiac diet 3) Monitor PO intake, lab values, weight trend, and I/O Expected Outcomes/Goals: Wound to improve Lab values to improve Fu 3-5 days MEEHAN,ZORAIDA [employer]LO[employer] MARKETING SPECIALIST Jan 12, 2025 16:05
[2025-01-12] MEDS: VANCOMYCIN 750MG KIT 100 ML IV ONE (17:28)
[2025-01-12 20:40] LABS: INR 0.99 (0.9-1.15); Partial Thromboplastin Time 61.1 SEC (24.5-34.5); Prothrombin Time 10.5 sec (9.3-11.8)
[2025-01-13] VITALS (9 sets, daily range): BP systolic 112–145; BP diastolic 60–77; PULSE 65–75; RESP 12–18; TEMP 97.5–98.6; O2SAT 97–99
[2025-01-13 03:02] LABS: INR 1.0 (0.9-1.15); Prothrombin Time 10.6 sec (9.3-11.8)
[2025-01-13 03:07] LABS: Partial Thromboplastin Time 83.6 SEC (24.5-34.5)
[2025-01-13] MEDS: HEPARIN DRIP/D5W 100UNITS/ML 250 ML IV SCH ×3 (03:22→23:33)
[2025-01-13 03:37] LABS: Chloride 106 mmol/L (98-107); Potassium 4.5 mmol/L (3.5-5.1); Sodium 139 mmol/L (136-145)
[2025-01-13 03:38] LABS: Anion Gap 9 (5-15); Carbon Dioxide 24 mmol/L (20-31)
[2025-01-13 03:43] LABS: BUN/Creatinine Ratio 18.1 (10.0-20.0)
[2025-01-13 03:50] LABS: Blood Urea Nitrogen 36 mg/dL (9-23); Calcium 8.2 mg/dL (8.7-10.4); Glucose 65 mg/dL (74-106)
[2025-01-13 04:55] LABS: Hematocrit 31.2 % (41.0-53.0); Hemoglobin 10.7 g/dL (13.5-17.5); Mean Corpuscular Hemoglobin 29.7 pg (28.0-32.0); Mean Corpuscular Volume 86.9 fL (80.0-100.0); Nucleated Red Blood Cells % 0.0 %
[2025-01-13 10:08] LABS: INR 0.97 (0.9-1.15); Partial Thromboplastin Time 46.9 SEC (24.5-34.5); Prothrombin Time 10.3 sec (9.3-11.8)
--- NOTE | 2025-01-13 11:13 | CONS ---
Pharmacy Clinical Information: APTT = 46.9 (SUBTHERAPEUTIC) INCREASE HEPARIN DRIP RATE FROM 700 UNITS/HR TO 900 UNITS/HR NEXT APTT DRAW SCHEDULED FOR 1700 PER RX PROTOCOL ULICES TANG PHARMACIST Jan 13, 2025 11:13
--- NOTE | 2025-01-13 14:20 | DVHPN2 ---
Subjective The patient is seen and examined at bedside. The patient is status post I&D of the elbow. Complains of chest pain and tired. Reviewed: Care Plan, H&P, Labs, Medications, Previous Orders, Radiology Changes from previous H/P or p: No Changes Objective Vitals Vital Signs Date Time Temp Pulse Resp B/P (MAP) Pulse Ox O2 Delivery O2 Flow Rate FiO2 01/13/25 14:10 122/60 01/13/25 13:00 98.1 66 12 98 98.1 01/13/25 10:00 Room Air* 0 21 Intake/Output Intake and Output 01/13/25 07:00 Intake Total 1433.0 ml Output Total 1000 ml Balance 433.0 ml Intake Oral 1331 ml IV Total 102.0 ml Output Urine Total 1000 ml # Voids 2 # Bowel Movements 1 General Appearance: Alert, Oriented X3, Cooperative, No acute distress HEENT: Atraumatic, PERRLA, EOMI, Mucous membr. moist/pink Neck: Supple Lungs: Clear to auscultation, Normal air movement Cardiovascular: Regular rate, Normal S1, Normal S2, No murmurs, Gallops, Rubs Abdomen: Normal bowel sounds, Soft, No tenderness Neuro: Cranial nerves 3-12 NL Psych/Mental Status: Mental status NL Medications Current Medications Medications Dose Ordered Sig/Rciky Route Start Time Stop Time Status Last Admin Dose Admin Vancomycin HCl 0 ml @ 0 mls/hr UD IV 01/07/25 19:30 Cefepime HCl 50 ml @ 12.5 mls/hr DAILY IV 01/08/25 10:00 01/13/25 09:59 12.5 MLS/HR Ondansetron HCl 4 mg Q4HP PRN IV 01/07/25 19:30 01/11/25 12:34 4 MG Metoprolol Succinate 50 mg DAILY PO 01/08/25 10:00 01/13/25 09:59 50 MG Atorvastatin Calcium 40 mg HS PO 01/08/25 22:00 01/12/25 21:44 40 MG Oxycodone HCl 10 mg ONCE PRN PO 01/10/25 13:45 01/10/25 23:31 10 MG Hydralazine HCl 25 mg Q8HR PO 01/11/25 14:00 01/13/25 14:10 25 MG Acetaminophen/ Hydrocodone Bitart 1 tab Q6HPRN PRN PO 01/11/25 11:00 01/13/25 10:00 1 TAB Nitroglycerin 0.4 mg Q5MINP PRN SL 01/11/25 12:30 Insulin Human Regular HS VT 01/11/25 22:00 01/12/25 21:58 3 UNITS Diagnostic Test (Pha) 1 strip ACHS 01/11/25 17:00 01/13/25 11:38 1 STRIP Insulin Human Regular AC SC 01/11/25 17:00 01/12/25 11:39 2 UNITS Dextrose 50 ml UD PRN IV 01/11/25 13:30 Insulin Glargine 30 units HS SC 01/11/25 22:00 01/12/25 21:58 30 UNITS Aspirin 81 mg DAILY PO 01/12/25 10:00 01/13/25 09:59 81 MG Heparin Sodium/ Dextrose 250 ml @ 8 mls/hr Q24H IV 01/11/25 19:30 Cancel Heparin Sodium/ Dextrose 250 ml @ 9 mls/hr Q24H IV 01/13/25 11:15 01/13/25 11:39 9 MLS/HR Laboratory Results Laboratory Tests 01/13/25 01:52 Chemistry Test 01/13/25 01:52 Calcium Level 8.2 mg/dL (8.7-10.4) L Coagulation Test 01/12/25 19:53 01/13/25 01:52 01/13/25 09:19 Prothrombin Time 10.5 sec (9.3-11.8) 10.6 sec (9.3-11.8) 10.3 sec (9.3-11.8) Prothrombin Time INR 0.99 (0.9-1.15) 1.00 (0.9-1.15) 0.97 (0.9-1.15) Activated Partial Thromboplast Time 61.1 SEC (24.5-34.5) H 83.6 SEC (24.5-34.5) *H 46.9 SEC (24.5-34.5) H Urinalysis Test 01/08/25 00:00 01/08/25 10:12 Urine Protein/Creatinine Ratio 1.75 Urine Total Protein 86.7 mg/dL (1-14) H Urine Color Light-yellow (Yellow) Urine Clarity Clear (Clear) Urine pH 5.5 (5.0-9.0) Urine Specific [place] 1.013 (1.001-1.035) Urine Protein 1+ (Negative) H Urine Ketones Negative (Negative) Urine Blood Negative /uL (Negative) Urine Nitrite Negative (Negative) Urine Bilirubin Negative (Negative) Urine Urobilinogen Normal mg/dL (Negative) Urine Leukocyte Esterase Negative /uL (Negative) Urine RBC 1 /hpf (0 - 3) Urine Microscopic WBC < 1 /HPF (0-3) Urine Squamous Epithelial Cells Few /hpf (<5) Urine Bacteria None seen /hpf (None Seen) Urine Hyaline Casts Few /lpf (0 - 2) Urine Creatinine 52.51 mg/dL (30.0-125.0) Urine Sodium 123 mmol/L (40-220) Urine Glucose 2+ mg/dL (Normal) H Microbiology Microbiology Date/Time Source Procedure Growth Status 01/10/25 13:17 Elbow Gram Stain - Final Resulted 01/10/25 13:17 Elbow Wound Culture - Preliminary Resulted 01/10/25 13:17 Rectum Gram Stain - Final Resulted 01/10/25 13:17 Rectum Wound Culture Pending Resulted 01/07/25 14:04 Blood Blood Culture - Final NO GROWTH AFTER 5 DAYS OF INCUBATION. Complete Labs and/or images reviewed: Labs reviewed by me Assessment/Plan Assessment/Plan Right elbow cellulitis with the small fluid collection seen on CT of the elbow Hypertension Acute on chronic renal failure Diabetes mellitus Chest pain with abnormal EKG (review by me) Severe Aortic Stenosis. Echo show: Mild LVH and mild LV diastolic dysfunction. LV EF is 65% Critical Aortic stenosis, Peak Aortic valve gradient is 73, and mean gradient is 28MM of Hg Posterior MV calcified. No effusion. Continuing current management. Continuing with IV antibiotic take vancomycin and cefepime. We will monitor kidney function. Continuing sliding scale insulin. Continuing pain medication with IV morphine and [place]. Nitrostat 0.4mg sl q5 min PRN for chest pain. Maximum three dosage per 15 minutes Appreciate Cardiology input. 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 I LYNSEY [place] cardiothoracic surgeon. He request the official echo result (at the time I spoke with him, the official report is not available yet), he also request cardiac cath. He decline to accept patient until all of result available and he will reevaluate to see if patient need to be transfer to higher level of care right away or outpatient management. LYNSEY assistant case manager. Will [facility] cardiology service. SW with son regarding to plan of care. IR consult to see if the drainage from his elbow abcess can be remove and wound care can start. This medical document was created using an electronic medical record system with [employer] dictation system. Although this document has been carefully reviewed, there may still be some phonetic and typographical errors. These areas are purely typographical due to imperfections of the software programs, and do not reflect any compromise in the patient's medical care. This medical document was created using an electronic medical record system with [employer] computerized dictation system. Although this document has been carefully reviewed, there may still be some phonetic and typographical errors. These areas are purely typographical due to imperfections of the software programs, and do not reflect any compromise in the patient's medical care. Plan discussed with: Patient, Son Date of Service: Jan 13, 2025 Billing Provider: BOBBY PAL MD Common Visit Codes: [id number] INP/OBS CARE(HIGH) BOBBY PAL MD Jan 13, 2025 14:20
--- NOTE | 2025-01-13 15:27 | DVHPN2 ---
Progress Note Date Seen: Jan 13, 2025 Medical Necessity Reason Pt with a Central, PICC or Fol: No Subjective Patient reports: No new complaints, Feels better Objective vital signs Vital Sign Date Time Temp Pulse Resp B/P (MAP) Pulse Ox O2 Delivery O2 Flow Rate FiO2 01/13/25 14:10 122/60 01/13/25 13:00 98.1 66 12 98 98.1 01/13/25 10:00 Room Air* 0 21 Total Intake and Output 01/12/25 01/12/25 01/13/25 15:00 23:00 07:00 Intake Total 57.0 ml 147 ml 1229 ml Output Total 1000 ml Balance 57.0 ml 147 ml 229 ml medications Current Medications Medications Dose Ordered Sig/Ricky Route Start Time Stop Time Status Last Admin Dose Admin Vancomycin HCl 0 ml @ 0 mls/hr UD IV 01/07/25 19:30 Cefepime HCl 50 ml @ 12.5 mls/hr DAILY IV 01/08/25 10:00 01/13/25 09:59 12.5 MLS/HR Ondansetron HCl 4 mg Q4HP PRN IV 01/07/25 19:30 01/11/25 12:34 4 MG Metoprolol Succinate 50 mg DAILY PO 01/08/25 10:00 01/13/25 09:59 50 MG Atorvastatin Calcium 40 mg HS PO 01/08/25 22:00 01/12/25 21:44 40 MG Oxycodone HCl 10 mg ONCE PRN PO 01/10/25 13:45 01/10/25 23:31 10 MG Hydralazine HCl 25 mg Q8HR PO 01/11/25 14:00 01/13/25 14:10 25 MG Acetaminophen/ Hydrocodone Bitart 1 tab Q6HPRN PRN PO 01/11/25 11:00 01/13/25 10:00 1 TAB Nitroglycerin 0.4 mg Q5MINP PRN SL 01/11/25 12:30 Insulin Human Regular HS SC 01/11/25 22:00 01/12/25 21:58 3 UNITS Diagnostic Test (Pha) 1 strip ACHS 01/11/25 17:00 01/13/25 11:38 1 STRIP Insulin Human Regular AC SC 01/11/25 17:00 01/12/25 11:39 2 UNITS Dextrose 50 ml UD PRN IV 01/11/25 13:30 Insulin Glargine 30 units HS SC 01/11/25 22:00 01/12/25 21:58 30 UNITS Aspirin 81 mg DAILY PO 01/12/25 10:00 01/13/25 09:59 81 MG Heparin Sodium/ Dextrose 250 ml @ 8 mls/hr Q24H IV 01/11/25 19:30 Cancel Heparin Sodium/ Dextrose 250 ml @ 9 mls/hr Q24H IV 01/13/25 11:15 01/13/25 11:39 9 MLS/HR Examination Gen: Patient appears stated age, NAD. Lungs: Bilateral air entry. No rales. CV: RRR, normal S1 and S2 Ext: No edema. Neuro: Alert and oriented x 4 laboratory and microbiology Laboratory Tests 01/13/25 01:52 Test 01/13/25 01:52 Range/Units Serum Glucose 65 L 74-106 mg/dL Microbiology Date/Time Source Procedure Growth Status 01/10/25 13:17 Elbow Gram Stain - Final Complete 01/10/25 13:17 Wound Culture - Final Staphylococcus aureus Complete 01/10/25 13:17 Rectum Gram Stain - Final Resulted 01/10/25 13:17 Rectum Wound Culture Pending Resulted 01/07/25 14:04 Blood Blood Culture - Final NO GROWTH AFTER 5 DAYS OF INCUBATION. Complete Labs and/or images reviewed: Labs reviewed by me Problem List/Assessment/Plan Problem List/Assessment/Plan IMP 1. 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 Serum creat 1.99 2.Hypertensive urgency 3. Anemia of chronic disease- hgb 10.6 4. uncontrolled type 2 diabetes mellitus 5.Cellulitis of the right elbow- s/p I&D Plan: - BMP in am - Blood pressure control - Glycemic control agree with current insulin sliding scale - Strict I&O's - Encourage oral intake - Avoidance of ACEIs/ARB and contrast studies if able during timecourse of LAVELL - Monitor vanco trough closely - Will continue to follow Plan discussed with: Patient Dietary Evaluation Review Comments: Nutrition Recommendation: 1) [place] 1 pk daily 2) CCHO 60gm + cardiac diet 3) Monitor PO intake, lab values, weight trend, and I/O Expected Outcomes/Goals: Wound to improve Lab values to improve Fu 3-5 days ZORAIDA MEEHAN Jan 13, 2025 15:27
--- NOTE | 2025-01-13 16:03 | DVHPN2 ---
Subjective No cardiac events reported Reviewed: Care Plan, H&P, Labs, Medications, Previous Orders, Radiology Changes from previous H/P or p: No Changes Objective Vitals Vital Signs Date Time Temp Pulse Resp B/P (MAP) Pulse Ox O2 Delivery O2 Flow Rate FiO2 01/13/25 14:10 122/60 01/13/25 13:00 98.1 66 12 98 98.1 01/13/25 10:00 Room Air* 0 21 Intake/Output Intake and Output 01/13/25 07:00 Intake Total 1433.0 ml Output Total 1000 ml Balance 433.0 ml Intake Oral 1331 ml IV Total 102.0 ml Output Urine Total 1000 ml # Voids 2 # Bowel Movements 1 General Appearance: Alert, Oriented X3, Cooperative, No acute distress HEENT: Atraumatic, PERRLA, EOMI, Mucous membr. moist/pink Neck: Supple Lungs: Clear to auscultation, Normal air movement Cardiovascular: Regular rate, Normal S1, Normal S2, No murmurs, Gallops, Rubs Abdomen: Normal bowel sounds, Soft, No tenderness Neuro: Cranial nerves 3-12 NL Psych/Mental Status: Mental status NL Medications Current Medications Medications Dose Ordered Sig/Ricky Route Start Time Stop Time Status Last Admin Dose Admin Vancomycin HCl 0 ml @ 0 mls/hr UD IV 01/07/25 19:30 Cefepime HCl 50 ml @ 12.5 mls/hr DAILY IV 01/08/25 10:00 01/13/25 09:59 12.5 MLS/HR Ondansetron HCl 4 mg Q4HP PRN IV 01/07/25 19:30 01/11/25 12:34 4 MG Metoprolol Succinate 50 mg DAILY PO 01/08/25 10:00 01/13/25 09:59 50 MG Atorvastatin Calcium 40 mg HS PO 01/08/25 22:00 01/12/25 21:44 40 MG Oxycodone HCl 10 mg ONCE PRN PO 01/10/25 13:45 01/10/25 23:31 10 MG Hydralazine HCl 25 mg Q8HR PO 01/11/25 14:00 01/13/25 14:10 25 MG Acetaminophen/ Hydrocodone Bitart 1 tab Q6HPRN PRN PO 01/11/25 11:00 01/13/25 10:00 1 TAB Nitroglycerin 0.4 mg Q5MINP PRN SL 01/11/25 12:30 Insulin Human Regular HS SC 01/11/25 22:00 01/12/25 21:58 3 UNITS Diagnostic Test (Pha) 1 strip ACHS 01/11/25 17:00 01/13/25 11:38 1 STRIP Insulin Human Regular AC SC 01/11/25 17:00 01/12/25 11:39 2 UNITS Dextrose 50 ml UD PRN IV 01/11/25 13:30 Insulin Glargine 30 units HS SC 01/11/25 22:00 01/12/25 21:58 30 UNITS Aspirin 81 mg DAILY PO 01/12/25 10:00 01/13/25 09:59 81 MG Heparin Sodium/ Dextrose 250 ml @ 8 mls/hr Q24H IV 01/11/25 19:30 Cancel Heparin Sodium/ Dextrose 250 ml @ 9 mls/hr Q24H IV 01/13/25 11:15 01/13/25 11:39 9 MLS/HR Laboratory Results Laboratory Tests 01/13/25 01:52 Chemistry Test 01/13/25 01:52 Calcium Level 8.2 mg/dL (8.7-10.4) L Coagulation Test 01/12/25 19:53 01/13/25 01:52 01/13/25 09:19 Prothrombin Time 10.5 sec (9.3-11.8) 10.6 sec (9.3-11.8) 10.3 sec (9.3-11.8) Prothrombin Time INR 0.99 (0.9-1.15) 1.00 (0.9-1.15) 0.97 (0.9-1.15) Activated Partial Thromboplast Time 61.1 SEC (24.5-34.5) H 83.6 SEC (24.5-34.5) *H 46.9 SEC (24.5-34.5) H Urinalysis Test 01/08/25 00:00 01/08/25 10:12 Urine Protein/Creatinine Ratio 1.75 Urine Total Protein 86.7 mg/dL (1-14) H Urine Color Light-yellow (Yellow) Urine Clarity Clear (Clear) Urine pH 5.5 (5.0-9.0) Urine Specific [place] 1.013 (1.001-1.035) Urine Protein 1+ (Negative) H Urine Ketones Negative (Negative) Urine Blood Negative /uL (Negative) Urine Nitrite Negative (Negative) Urine Bilirubin Negative (Negative) Urine Urobilinogen Normal mg/dL (Negative) Urine Leukocyte Esterase Negative /uL (Negative) Urine RBC 1 /hpf (0 - 3) Urine Microscopic WBC < 1 /HPF (0-3) Urine Squamous Epithelial Cells Few /hpf (<5) Urine Bacteria None seen /hpf (None Seen) Urine Hyaline Casts Few /lpf (0 - 2) Urine Creatinine 52.51 mg/dL (30.0-125.0) Urine Sodium 123 mmol/L (40-220) Urine Glucose 2+ mg/dL (Normal) H Microbiology Microbiology Date/Time Source Procedure Growth Status 01/10/25 13:17 Elbow Gram Stain - Final Complete 01/10/25 13:17 Wound Culture - Final Staphylococcus aureus Complete 01/10/25 13:17 Rectum Gram Stain - Final Resulted 01/10/25 13:17 Rectum Wound Culture Pending Resulted 01/07/25 14:04 Blood Blood Culture - Final NO GROWTH AFTER 5 DAYS OF INCUBATION. Complete Assessment/Plan Assessment/Plan Critical aortic stenosis NSTEMI, questionable type 1 Rule out structural heart disease Hypertensive urgency Diabetes mellitus, newly diagnosed Dyslipidemia LAVELL on CKD Anemia and chronic disease Dementia Plan/Recommendation (Dr. Wilcox): Echo: MILD LVH AND MILD LV DIASTOLIC DYSFUNCTION LV EF IS 65% CRITICAL AORTIC STENOSIS PEAK AORTIC VALVE GRADIENT IS 73 AND MEAN GRADIENT IS 28 MM OF HG AORTIC VALVE AREA IS 0,86 CM SQUARE CRITICAL AORTIC STENOSIS POSTERIOR MV CALCIFIED NO EFFUSION Continue with heparin drip. Transfer for higher level of care for AVR. This medical document was created using an electronic medical record system with voice recognition software and computerized dictation system. Although this document has been carefully reviewed, there might still be some phonetic and typographical errors. Occasional wrong-word or ``sound-alike substitutions may have occurred due to the inherent limitations of voice recognition software. These areas are purely typographical due to imperfections of the software programs and do not reflect any compromise in the patient's medical care. Please read the chart carefully and recognize, using context, where these substitutions have occurred. Plan discussed with: Patient Plan discussed with: Patient Date of Service: Jan 13, 2025 Billing Provider: NAN WILCOX Sr., MD Common Visit Codes: CONSULT ONLY Consultation Codes: [id number] CONSULT <45MIN AKHIL JAMES [facility] Jan 13, 2025 16:03
[2025-01-13] MEDS: VANCOMYCIN 750MG KIT 100 ML IV ONE (16:45)
[2025-01-13 17:47] LABS: INR 0.99 (0.9-1.15); Prothrombin Time 10.5 sec (9.3-11.8)
[2025-01-13 18:16] LABS: Partial Thromboplastin Time 74.5 SEC (24.5-34.5)
[2025-01-13 23:21] LABS: INR 0.99 (0.9-1.15); Prothrombin Time 10.5 sec (9.3-11.8)
[2025-01-13 23:22] LABS: Partial Thromboplastin Time 83.1 SEC (24.5-34.5)
[2025-01-14] VITALS (10 sets, daily range): BP systolic 112–140; BP diastolic 63–77; PULSE 62–74; RESP 15–18; TEMP 97.7–98.2; O2SAT 96–99
[2025-01-14 06:33] LABS: Hematocrit 32.1 % (41.0-53.0); Hemoglobin 11.2 g/dL (13.5-17.5); Mean Corpuscular Hemoglobin 30.3 pg (28.0-32.0); Mean Corpuscular Volume 86.9 fL (80.0-100.0); Nucleated Red Blood Cells % 0.0 %
[2025-01-14 06:44] LABS: INR 1.02 (0.9-1.15); Partial Thromboplastin Time 63.3 SEC (24.5-34.5); Prothrombin Time 10.8 sec (9.3-11.8)
[2025-01-14 06:52] LABS: Alanine Aminotransferase 12 U/L (7-40); Albumin 3.5 g/dL (3.2-4.8); Alkaline Phosphatase 72 U/L (46-116); Anion Gap 8 (5-15); BUN/Creatinine Ratio 12.2 (10.0-20.0); Bilirubin, Total 0.3 mg/dL (0.2-1.0); Carbon Dioxide 25 mmol/L (20-31); Chloride 105 mmol/L (98-107); Glucose 84 mg/dL (74-106); Potassium 4.7 mmol/L (3.5-5.1); Sodium 138 mmol/L (136-145); Total Protein 5.8 g/dL (5.7-8.2)
[2025-01-14 06:57] LABS: Blood Urea Nitrogen 24 mg/dL (9-23); Calcium 8.7 mg/dL (8.7-10.4)
--- NOTE | 2025-01-14 07:51 | ECG ---
[facility] Test Date: 2025-01-11 Test Time: 11:29:34 Pat Name: LUCERO SIGALA Department: Room: 0208T A Gender: M Community Affairs Manager: luda : 1950 Requested By: NELLIE HILARIO Order Number: [id number] Reading MD: Vickey Wilcox Measurements Intervals [place] Rate: 101 P: 57 CA: 150 QRS: 39 QRSD: 95 T: 65 QT: 363 QTc: 471 Interpretive Statements Sinus tachycardia Consider inferior infarct Anterior infarct, old Electronically Signed On 01-15-2025 21:41:36 PDT by Vickey Wilcox Please click the below link to view image of tracing.
--- NOTE | 2025-01-14 11:07 | DVHPN2 ---
Consult Progress Note Date Seen: Jan 14, 2025 Subjective Review of Systems: CVS:Normal, RESPIRATORY:Normal, NEURO:Normal Objective vital signs Vital Sign Date Time Temp Pulse Resp B/P (MAP) Pulse Ox O2 Delivery O2 Flow Rate FiO2 01/14/25 10:00 96 Room Air* 0 21 01/14/25 09:42 68 125/67 01/14/25 09:00 98.2 16 98.2 Total Intake and Output 01/13/25 01/13/25 01/14/25 15:00 23:00 07:00 Intake Total 106 ml 1128 ml 400 ml Output Total 720 ml 300 ml Balance 106 ml 408 ml 100 ml medications Current Medications Medications Dose Ordered Sig/Ricky Route Start Time Stop Time Status Last Admin Dose Admin Vancomycin HCl 0 ml @ 0 mls/hr UD IV 01/07/25 19:30 Ondansetron HCl 4 mg Q4HP PRN IV 01/07/25 19:30 01/11/25 12:34 4 MG Metoprolol Succinate 50 mg DAILY PO 01/08/25 10:00 01/14/25 09:42 50 MG Atorvastatin Calcium 40 mg HS PO 01/08/25 22:00 01/13/25 21:03 40 MG Oxycodone HCl 10 mg ONCE PRN PO 01/10/25 13:45 01/10/25 23:31 10 MG Hydralazine HCl 25 mg Q8HR PO 01/11/25 14:00 01/14/25 06:15 25 MG Acetaminophen/ Hydrocodone Bitart 1 tab Q6HPRN PRN PO 01/11/25 11:00 01/14/25 00:26 1 TAB Nitroglycerin 0.4 mg Q5MINP PRN SL 01/11/25 12:30 Insulin Human Regular HS SC 01/11/25 22:00 01/13/25 21:17 2 UNITS Diagnostic Test (Pha) 1 strip ACHS 01/11/25 17:00 01/14/25 06:15 1 STRIP Insulin Human Regular AC SC 01/11/25 17:00 01/13/25 17:50 3 UNITS Dextrose 50 ml UD PRN IV 01/11/25 13:30 Insulin Glargine 30 units HS SC 01/11/25 22:00 01/13/25 21:16 30 UNITS Aspirin 81 mg DAILY PO 01/12/25 10:00 01/14/25 09:42 81 MG Heparin Sodium/ Dextrose 250 ml @ 8 mls/hr Q24H IV 01/11/25 19:30 Cancel Heparin Sodium/ Dextrose 250 ml @ 7 mls/hr Q24H IV 01/13/25 23:30 01/13/25 23:33 7 MLS/HR Cefepime HCl 50 ml @ 50 mls/hr DAILY IV 01/15/25 10:00 Examination: LUNGS:Normal, CVS:Abnormal (Systolic murmur III/), MSK:Abnormal (Wound dressing to right upper extremity) laboratory and microbiology Laboratory Tests 01/14/25 05:24 Test 01/14/25 05:24 Range/Units Serum Glucose 84 74-106 mg/dL Problem List/Assessment/Plan Problem List/Assessment/Plan NSTEMI, questionable type I Rule out structural heart disease Hypertensive urgency Diabetes mellitus, newly diagnosed Dyslipidemia 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 Wilcox) Case discussed in full detail with Dr. Wilcox. A transthoracic echocardiogram revealed LVEF 65% with critical aortic stenosis: ELIZABETH 0.86 cm2, peak gradient of 73mmHg and mean gradient of 28 mmHg. Scheduled for a cardiac catheterization with coronary angiogram and aortic valve evaluation with Dr. Wilcox on /2025. All risks and benefits of the procedure were discussed with the patient and son over the phone, including a risk of AKIRA and possible need for HD postprocedure. All questions answered. In the meantime, continue ASA as well as lipid lowering agent. Continue heparin drip per pharmacy protocol. Continue aggressive blood pressure control and titrate as tolerated for a target SBP < 140 mmHg. Monitor ECG changes closely and notify. We will communicate directly with Nephrology team to update on cardiac catheterization. Thank you for allowing us to participate in this patient's care. Please call if you have any questions or concerns. Critical care time: 30 min. This medical document was created using an electronic medical record system with voice recognition software and computerized dictation system. Although this document has been carefully reviewed, there might still be some phonetic and typographical errors. Occasional wrong-word or ``sound-alike substitutions may have occurred due to the inherent limitations of voice recognition software. These areas are purely typographical due to imperfections of the software programs and do not reflect any compromise in the patient's medical care. Please read the chart carefully and recognize, using context, where these substitutions have occurred. Plan discussed with: Patient, Other Dietary Evaluation Review Comments: Nutrition Recommendation: 1) Yanick 1 pk daily 2) CCHO 60gm + cardiac diet 3) Monitor PO intake, lab values, weight trend, and I/O Expected Outcomes/Goals: Wound to improve Lab values to improve Fu 3-5 days Date of Service: Jan 14, 2025 Billing Provider: NELLIE HILARIO Cardiology Common Codes: [id number] CARE 30-74 MIN NELLIE HILARIO Jan 14, 2025 11:07
--- NOTE | 2025-01-14 11:29 | DVHPN2 ---
Subjective The patient is seen and examined at bedside. The patient is status post I&D of the elbow. Complains of chest pain and tired. Reviewed: Care Plan, H&P, Labs, Medications, Previous Orders, Radiology Changes from previous H/P or p: No Changes Objective Vitals Vital Signs Date Time Temp Pulse Resp B/P (MAP) Pulse Ox O2 Delivery O2 Flow Rate FiO2 01/14/25 10:00 96 Room Air* 0 21 01/14/25 09:42 68 125/67 01/14/25 09:00 98.2 16 98.2 Intake/Output Intake and Output 01/14/25 07:00 Intake Total 1634 ml Output Total 1020 ml Balance 614 ml Intake Oral 1356 ml IV Total 278 ml Output Urine Total 1020 ml # Voids 1 # Bowel Movements 2 General Appearance: Alert, Oriented X3, Cooperative, No acute distress HEENT: Atraumatic, PERRLA, EOMI, Mucous membr. moist/pink Neck: Supple Lungs: Clear to auscultation, Normal air movement Cardiovascular: Regular rate, Normal S1, Normal S2, No murmurs, Gallops, Rubs Abdomen: Normal bowel sounds, Soft, No tenderness Neuro: Cranial nerves 3-12 NL Psych/Mental Status: Mental status NL Medications Current Medications Medications Dose Ordered Sig/Ricky Route Start Time Stop Time Status Last Admin Dose Admin Vancomycin HCl 0 ml @ 0 mls/hr UD IV 01/07/25 19:30 Ondansetron HCl 4 mg Q4HP PRN IV 01/07/25 19:30 01/11/25 12:34 4 MG Metoprolol Succinate 50 mg DAILY PO 01/08/25 10:00 01/14/25 09:42 50 MG Atorvastatin Calcium 40 mg HS PO 01/08/25 22:00 01/13/25 21:03 40 MG Oxycodone HCl 10 mg ONCE PRN PO 01/10/25 13:45 01/10/25 23:31 10 MG Hydralazine HCl 25 mg Q8HR PO 01/11/25 14:00 01/14/25 06:15 25 MG Acetaminophen/ Hydrocodone Bitart 1 tab Q6HPRN PRN PO 01/11/25 11:00 01/14/25 00:26 1 TAB Nitroglycerin 0.4 mg Q5MINP PRN SL 01/11/25 12:30 Insulin Human Regular HS SC 01/11/25 22:00 01/13/25 21:17 2 UNITS Diagnostic Test (Pha) 1 strip ACHS 01/11/25 17:00 01/14/25 06:15 1 STRIP Insulin Human Regular AC SC 01/11/25 17:00 01/13/25 17:50 3 UNITS Dextrose 50 ml UD PRN IV 01/11/25 13:30 Insulin Glargine 30 units HS SC 01/11/25 22:00 01/13/25 21:16 30 UNITS Aspirin 81 mg DAILY PO 01/12/25 10:00 01/14/25 09:42 81 MG Heparin Sodium/ Dextrose 250 ml @ 8 mls/hr Q24H IV 01/11/25 19:30 Cancel Heparin Sodium/ Dextrose 250 ml @ 7 mls/hr Q24H IV 01/13/25 23:30 01/14/25 11:07 7 MLS/HR Cefepime HCl 50 ml @ 50 mls/hr DAILY IV 01/15/25 10:00 Laboratory Results Laboratory Tests 01/14/25 05:24 Chemistry Test 01/14/25 05:24 Albumin 3.5 g/dL (3.2-4.8) Calcium Level 8.7 mg/dL (8.7-10.4) Total Protein 5.8 g/dL (5.7-8.2) Coagulation Test 01/13/25 17:06 01/13/25 22:51 01/14/25 05:24 Prothrombin Time 10.5 sec (9.3-11.8) 10.5 sec (9.3-11.8) 10.8 sec (9.3-11.8) Prothrombin Time INR 0.99 (0.9-1.15) 0.99 (0.9-1.15) 1.02 (0.9-1.15) Activated Partial Thromboplast Time 74.5 SEC (24.5-34.5) *H 83.1 SEC (24.5-34.5) *H 63.3 SEC (24.5-34.5) H LFT Test 01/14/25 05:24 Alanine Aminotransferase (ALT) 12 U/L (7-40) Alkaline Phosphatase 72 U/L (46-116) Aspartate Amino Transferase (AST) 16 U/L (13-40) Total Bilirubin 0.3 mg/dL (0.2-1.0) Urinalysis Test 01/08/25 00:00 01/08/25 10:12 Urine Protein/Creatinine Ratio 1.75 Urine Total Protein 86.7 mg/dL (1-14) H Urine Color Light-yellow (Yellow) Urine Clarity Clear (Clear) Urine pH 5.5 (5.0-9.0) Urine Specific [place] 1.013 (1.001-1.035) Urine Protein 1+ (Negative) H Urine Ketones Negative (Negative) Urine Blood Negative /uL (Negative) Urine Nitrite Negative (Negative) Urine Bilirubin Negative (Negative) Urine Urobilinogen Normal mg/dL (Negative) Urine Leukocyte Esterase Negative /uL (Negative) Urine RBC 1 /hpf (0 - 3) Urine Microscopic WBC < 1 /HPF (0-3) Urine Squamous Epithelial Cells Few /hpf (<5) Urine Bacteria None seen /hpf (None Seen) Urine Hyaline Casts Few /lpf (0 - 2) Urine Creatinine 52.51 mg/dL (30.0-125.0) Urine Sodium 123 mmol/L (40-220) Urine Glucose 2+ mg/dL (Normal) H Microbiology Microbiology Date/Time Source Procedure Growth Status 01/10/25 13:17 Elbow Gram Stain - Final Complete 01/10/25 13:17 Wound Culture - Final Staphylococcus aureus Complete 01/10/25 13:17 Rectum Gram Stain - Final Resulted 01/10/25 13:17 Rectum Wound Culture Pending Resulted 01/07/25 14:04 Blood Blood Culture - Final NO GROWTH AFTER 5 DAYS OF INCUBATION. Complete Labs and/or images reviewed: Labs reviewed by me Assessment/Plan Assessment/Plan Right elbow cellulitis with the small fluid collection seen on CT of the elbow Hypertension Acute on chronic renal failure Diabetes mellitus Chest pain with abnormal EKG (review by me) Severe Aortic Stenosis. Echo show: Mild LVH and mild LV diastolic dysfunction. LV EF is 65% Critical Aortic stenosis, Peak Aortic valve gradient is 73, and mean gradient is 28MM of Hg Posterior MV calcified. No effusion. Continuing current management. Continuing with IV antibiotic take vancomycin and cefepime. We will monitor kidney function. Continuing sliding scale insulin. Continuing pain medication with IV morphine and Otis. Nitrostat 0.4mg sl q5 min PRN for chest pain. Maximum three dosage per 15 minutes Appreciate Cardiology input. Per canned food reconditioning inspector, patient need to transfer to higher level of care for Aortic valve replacement. I LYNSEY [place] cardiothoracic surgeon. He request the official echo result (at the time I spoke with him, the official report is not available yet), he also request cardiac cath. He decline to accept patient until all of result available and he will reevaluate to see if patient need to be transfer to higher level of care right away or outpatient management. LYNSEY cyanide case hardener. Will DW cardiology service. SW with son regarding to plan of care. IR consult to see if the drainage from his elbow abscess can be remove and wound care can start. Per Ortho, drainage can be remove and start wound care. Per canned food reconditioning inspector, cardiac cath on Jan 16. Insurance will transfer him to the facility that contract with his insurance. This medical document was created using an electronic medical record system with [employer] computerized dictation system. Although this document has been carefully reviewed, there may still be some phonetic and typographical errors. These areas are purely typographical due to imperfections of the software programs, and do not reflect any compromise in the patient's medical care. This medical document was created using an electronic medical record system with [employer] computerized dictation system. Although this document has been carefully reviewed, there may still be some phonetic and typographical errors. These areas are purely typographical due to imperfections of the software programs, and do not reflect any compromise in the patient's medical care. Plan discussed with: Patient Date of Service: Jan 14, 2025 Billing Provider: BOBBY PAL MD Common Visit Codes: [id number] INP/OBS CARE(HIGH) BOBBY PAL MD Jan 14, 2025 11:29
[2025-01-14 12:42] LABS: INR 1.03 (0.9-1.15); Partial Thromboplastin Time 42.9 SEC (24.5-34.5); Prothrombin Time 10.9 sec (9.3-11.8)
[2025-01-14] MEDS: CEFEPIME 1GM/50ML 50 ML IV ONE (14:00)
--- NOTE | 2025-01-14 14:10 | CONS ---
Pharmacy Clinical Information: HEPARIN DRIP, ACS PROTOCOL @1158 APTT 42.9 - NO BOLUS, INCREASE HEPARIN DRIP RATE TO 900 UNITS/HR NEXT APTT DRAW SCHEDULED @1999 PER RX PROTOCOL CONFIRMED AND READ BACK WITH AUBREE PAULACO [facility] RESIDENT Jan 14, 2025 14:10
[2025-01-14] MEDS: HEPARIN DRIP/D5W 100UNITS/ML 250 ML IV SCH (14:41)
[2025-01-14] MEDS: VANCOMYCIN 500mg/100mL 100 ML IV ONE (17:00)
--- NOTE | 2025-01-14 17:29 | DVHPN2 ---
Progress Note Date Seen: Jan 14, 2025 Resident Creating Document: SUKHDEEP SAENZ RESIDENT Medical Necessity Reason Pt with a Central, PICC or Fol: No Subjective Review of Systems Patient was seen and examined on the bedside. He is alert oriented x3. complaining of mild chest discomfort. Recent echo demonstrated critical aortic stenosis, scheduled for left and right heart catheterization on 01/16/2025. Objective vital signs Vital Sign Date Time Temp Pulse Resp B/P (MAP) Pulse Ox O2 Delivery O2 Flow Rate FiO2 01/14/25 14:40 153/87 01/14/25 13:00 97.9 70 16 98 97.9 01/14/25 10:00 Room Air* 0 21 Total Intake and Output 01/13/25 01/13/25 01/14/25 15:00 23:00 07:00 Intake Total 106 ml 1128 ml 400 ml Output Total 720 ml 300 ml Balance 106 ml 408 ml 100 ml medications Current Medications Medications Dose Ordered Sig/Ricky Route Start Time Stop Time Status Last Admin Dose Admin Vancomycin HCl 0 ml @ 0 mls/hr UD IV 01/07/25 19:30 Ondansetron HCl 4 mg Q4HP PRN IV 01/07/25 19:30 01/11/25 12:34 4 MG Metoprolol Succinate 50 mg DAILY PO 01/08/25 10:00 01/14/25 09:42 50 MG Atorvastatin Calcium 40 mg HS PO 01/08/25 22:00 01/13/25 21:03 40 MG Oxycodone HCl 10 mg ONCE PRN PO 01/10/25 13:45 01/10/25 23:31 10 MG Hydralazine HCl 25 mg Q8HR PO 01/11/25 14:00 01/14/25 14:40 25 MG Acetaminophen/ Hydrocodone Bitart 1 tab Q6HPRN PRN PO 01/11/25 11:00 01/14/25 12:24 1 TAB Nitroglycerin 0.4 mg Q5MINP PRN SL 01/11/25 12:30 Insulin Human Regular HS SC 01/11/25 22:00 01/13/25 21:17 2 UNITS Diagnostic Test (Pha) 1 strip ACHS 01/11/25 17:00 01/14/25 11:30 1 STRIP Insulin Human Regular AC SC 01/11/25 17:00 01/14/25 12:22 2 UNITS Dextrose 50 ml UD PRN IV 01/11/25 13:30 Insulin Glargine 30 units HS SC 01/11/25 22:00 01/13/25 21:16 30 UNITS Aspirin 81 mg DAILY PO 01/12/25 10:00 01/14/25 09:42 81 MG Heparin Sodium/ Dextrose 250 ml @ 8 mls/hr Q24H IV 01/11/25 19:30 Cancel Cefepime HCl 50 ml @ 50 mls/hr DAILY IV 01/15/25 10:00 Heparin Sodium/ Dextrose 250 ml @ 9 mls/hr Q24H IV 01/14/25 14:30 01/14/25 14:41 9 MLS/HR Examination Physical examination: General Appearance: Alert, Oriented X3, Cooperative, No acute distress HEENT: Atraumatic, PERRLA, EOMI, Mucous membrane moist/pink Respiratory: Clear to auscultation, Normal air movement Cardiovascular: Regular rate, Normal S1, Normal S2, No murmurs, no chest wall tenderness Abdominal: Normal bowel sounds, Soft, No tenderness, No hepatospenomegaly, No masses Extremities: Surgical dressing covering rt elbow, No clubbing, No cyanosis, No edema, Normal pulses. Skin: No rashes, No breakdown, No significant lesion Neuro: Normal gait, Normal speech, Strength at 5/5 X4 ext, Normal tone, Sensation intact, Cranial nerves 3-12 NL, Reflexes 2+ Psych/Mental Status: Mental status NL, Mood N laboratory and microbiology Laboratory Tests 01/14/25 05:24 Test 01/14/25 05:24 Range/Units Serum Glucose 84 74-106 mg/dL Microbiology Date/Time Source Procedure Growth Status 01/10/25 13:17 Elbow Gram Stain - Final Complete 01/10/25 13:17 Wound Culture - Final Staphylococcus aureus Complete 01/10/25 13:17 Rectum Gram Stain - Final Resulted 01/10/25 13:17 Rectum Wound Culture Pending Resulted 01/07/25 14:04 Blood Blood Culture - Final NO GROWTH AFTER 5 DAYS OF INCUBATION. 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 daily and hydralazine 25 mg Q 8 hours for optimize control of blood pressure - S/P I&D of rt elbow day 4 - continue IV antibiotics as per primary - Moderate ISS - strict I&O - avoid nephrotoxic medication - monitor BMP Thank you so much for the opportunity to consult on your patient. Nephro team will follow the patient. In case of any questions or concerns please feel free to reach out. Plan discussed with Dr. Hansen. The patient and caregiver team agreed to the plan. Addendum Patient seen and examined, plan discussed with resident. Agree with above, we will follow closely need 12 hrs pre and post cath ivf Plan discussed with: Patient, Other (RN) Dietary Evaluation Review Comments: Nutrition Recommendation: 1) Yanick 1 pk daily 2) CCHO 60gm + cardiac diet 3) Monitor PO intake, lab values, weight trend, and I/O Expected Outcomes/Goals: Wound to improve Lab values to improve Fu 3-5 days SUKHDEEP SAENZ RESIDENT Jan 14, 2025 17:29 VIPIN HANSEN MD Jan 14, 2025 17:40
[2025-01-14 20:51] LABS: INR 1.05 (0.9-1.15); Prothrombin Time 11.1 sec (9.3-11.8)
[2025-01-14 21:31] LABS: Partial Thromboplastin Time 71.3 SEC (24.5-34.5)
[2025-01-15] VITALS (9 sets, daily range): BP systolic 116–132; BP diastolic 59–73; PULSE 66–77; RESP 17–20; TEMP 97.8–98.2; O2SAT 97–99
[2025-01-15 03:07] LABS: INR 1.03 (0.9-1.15); Prothrombin Time 10.9 sec (9.3-11.8)
[2025-01-15 03:08] LABS: Partial Thromboplastin Time 75.8 SEC (24.5-34.5)
[2025-01-15] MEDS: HEPARIN DRIP/D5W 100UNITS/ML 250 ML IV SCH ×2 (03:19→19:28)
[2025-01-15 07:53] LABS: Potassium 4.4 mmol/L (3.5-5.1); Sodium 142 mmol/L (136-145)
[2025-01-15 07:54] LABS: Anion Gap 10 (5-15); Calcium 8.6 mg/dL (8.7-10.4); Carbon Dioxide 25 mmol/L (20-31); Chloride 107 mmol/L (98-107)
[2025-01-15 08:00] LABS: BUN/Creatinine Ratio 13.3 (10.0-20.0); Blood Urea Nitrogen 26 mg/dL (9-23); Glucose 78 mg/dL (74-106)
--- NOTE | 2025-01-15 09:20 | ECG ---
[facility] Test Date: 2025-01-11 Test Time: 16:41:30 Pat Name: LUCERO SIGALA Department: Respiratoy Room: 0208T A Gender: M Regulatory Law Specialist: [place] : 1950 Requested By: BOBBY PAL Order Number: [id number] Reading MD: Vickey Wilcox Measurements Intervals [place] Rate: 91 P: 63 OR: 153 QRS: 67 QRSD: 98 T: 65 QT: 377 QTc: 464 Interpretive Statements Sinus rhythm Probable left ventricular hypertrophy Abnormal inferior Q waves Anterior ST elevation, probably due to LVH Electronically Signed On 01-15-2025 21:42:34 PDT by Vcikey Wilcox Please click the below link to view image of tracing.
[2025-01-15] MEDS: CEFEPIME 2GM/50ML NS 50 ML IV SCH (10:34)
--- NOTE | 2025-01-15 10:49 | DVHPN2 ---
Subjective The patient is seen and examined at bedside. No complains today. Daughter at bedside. Reviewed: Care Plan, H&P, Labs, Medications, Previous Orders, Radiology Changes from previous H/P or p: No Changes Objective Vitals Vital Signs Date Time Temp Pulse Resp B/P (MAP) Pulse Ox O2 Delivery O2 Flow Rate FiO2 01/15/25 10:33 66 116/62 01/15/25 09:00 97.8 20 98 97.8 01/15/25 08:10 Room Air* 0 21 Intake/Output Intake and Output 01/15/25 07:00 Intake Total 1200 ml Output Total 1350 ml Balance -150 ml Intake Oral 1200 ml Output Urine Total 1350 ml # Voids 1 # Bowel Movements 1 General Appearance: Alert, Oriented X3, Cooperative, No acute distress HEENT: Atraumatic, PERRLA, EOMI, Mucous membr. moist/pink Neck: Supple Lungs: Clear to auscultation, Normal air movement Cardiovascular: Regular rate, Normal S1, Normal S2, No murmurs, Gallops, Rubs Abdomen: Normal bowel sounds, Soft, No tenderness Neuro: Cranial nerves 3-12 NL Psych/Mental Status: Mental status NL Medications Current Medications Medications Dose Ordered Sig/Ricky Route Start Time Stop Time Status Last Admin Dose Admin Vancomycin HCl 0 ml @ 0 mls/hr UD IV 01/07/25 19:30 Ondansetron HCl 4 mg Q4HP PRN IV 01/07/25 19:30 01/11/25 12:34 4 MG Metoprolol Succinate 50 mg DAILY PO 01/08/25 10:00 01/15/25 10:33 50 MG Atorvastatin Calcium 40 mg HS PO 01/08/25 22:00 01/14/25 21:09 40 MG Oxycodone HCl 10 mg ONCE PRN PO 01/10/25 13:45 01/10/25 23:31 10 MG Hydralazine HCl 25 mg Q8HR PO 01/11/25 14:00 01/14/25 14:40 25 MG Acetaminophen/ Hydrocodone Bitart 1 tab Q6HPRN PRN PO 01/11/25 11:00 01/14/25 12:24 1 TAB Nitroglycerin 0.4 mg Q5MINP PRN SL 01/11/25 12:30 Insulin Human Regular HS SC 01/11/25 22:00 01/14/25 21:26 3 UNITS Diagnostic Test (Pha) 1 strip ACHS 01/11/25 17:00 01/15/25 10:34 1 STRIP Insulin Human Regular AC SC 01/11/25 17:00 01/14/25 12:22 2 UNITS Dextrose 50 ml UD PRN IV 01/11/25 13:30 Insulin Glargine 30 units HS SC 01/11/25 22:00 01/14/25 21:26 30 UNITS Aspirin 81 mg DAILY PO 01/12/25 10:00 01/15/25 10:33 81 MG Heparin Sodium/ Dextrose 250 ml @ 8 mls/hr Q24H IV 01/11/25 19:30 Cancel Cefepime HCl 50 ml @ 50 mls/hr DAILY IV 01/15/25 10:00 01/15/25 10:34 50 MLS/HR Heparin Sodium/ Dextrose 250 ml @ 7 mls/hr Q24H IV 01/15/25 03:30 01/15/25 03:19 7 MLS/HR Laboratory Results Laboratory Tests 01/14/25 05:24 01/15/25 06:59 Chemistry Test 01/15/25 06:59 Calcium Level 8.6 mg/dL (8.7-10.4) L Coagulation Test 01/14/25 11:58 01/14/25 20:02 01/15/25 02:18 01/15/25 06:59 Prothrombin Time 10.9 sec (9.3-11.8) 11.1 sec (9.3-11.8) 10.9 sec (9.3-11.8) Pending Prothrombin Time INR 1.03 (0.9-1.15) 1.05 (0.9-1.15) 1.03 (0.9-1.15) Pending Activated Partial Thromboplast Time 42.9 SEC (24.5-34.5) H 71.3 SEC (24.5-34.5) *H 75.8 SEC (24.5-34.5) *H Pending Urinalysis Test 01/08/25 00:00 01/08/25 10:12 Urine Protein/Creatinine Ratio 1.75 Urine Total Protein 86.7 mg/dL (1-14) H Urine Color Light-yellow (Yellow) Urine Clarity Clear (Clear) Urine pH 5.5 (5.0-9.0) Urine Specific [place] 1.013 (1.001-1.035) Urine Protein 1+ (Negative) H Urine Ketones Negative (Negative) Urine Blood Negative /uL (Negative) Urine Nitrite Negative (Negative) Urine Bilirubin Negative (Negative) Urine Urobilinogen Normal mg/dL (Negative) Urine Leukocyte Esterase Negative /uL (Negative) Urine RBC 1 /hpf (0 - 3) Urine Microscopic WBC < 1 /HPF (0-3) Urine Squamous Epithelial Cells Few /hpf (<5) Urine Bacteria None seen /hpf (None Seen) Urine Hyaline Casts Few /lpf (0 - 2) Urine Creatinine 52.51 mg/dL (30.0-125.0) Urine Sodium 123 mmol/L (40-220) Urine Glucose 2+ mg/dL (Normal) H Microbiology Microbiology Date/Time Source Procedure Growth Status 01/10/25 13:17 Elbow Gram Stain - Final Complete 01/10/25 13:17 Wound Culture - Final Staphylococcus aureus Complete 01/10/25 13:17 Rectum Gram Stain - Preliminary Resulted 01/10/25 13:17 Rectum Wound Culture Pending Resulted 01/07/25 14:04 Blood Blood Culture - Final NO GROWTH AFTER 5 DAYS OF INCUBATION. Complete Labs and/or images reviewed: Labs reviewed by me Assessment/Plan Assessment/Plan Right elbow cellulitis with the small fluid collection seen on CT of the elbow Hypertension Acute on chronic renal failure Diabetes mellitus Chest pain with abnormal EKG (review by me) Severe Aortic Stenosis. Echo show: Mild LVH and mild LV diastolic dysfunction. LV EF is 65% Critical Aortic stenosis, Peak Aortic valve gradient is 73, and mean gradient is 28MM of Hg Posterior MV calcified. No effusion. Continuing current management. Continuing with IV antibiotic take vancomycin and cefepime. We will monitor kidney function. Continuing sliding scale insulin. Continuing pain medication with IV morphine and [place]. Nitrostat 0.4mg sl q5 min PRN for chest pain. Maximum three dosage per 15 minutes Appreciate Cardiology input. Per offset press operator, patient need to transfer to higher level of care for Aortic valve replacement. I [place] cardiothoracic surgeon. He request the official echo result (at the time I spoke with him, the official report is not available yet), he also request cardiac cath. He decline to accept patient until all of result available and he will reevaluate to see if patient need to be transfer to higher level of care right away or outpatient management. DW [employer]er [employer]. Will DW cardiology service. SW with son regarding to plan of care. IR consult to see if the drainage from his elbow abscess can be remove and wound care can start. Per Ortho, drainage can be remove and start wound care. Per offset press operator, cardiac cath on Jan 16. Insurance will transfer him to the facility that contract with his insurance. 01/15: DW daughter and patient regarding plan of care. Explain the cardiac cath procedure. Explain finding from echo which show severe Aortic stenosis. Explain the Cardiothoracic surgeon request echo and cardiac cath to evaluate the valve stenosis. DW also about insurance and the request to transfer patient to [facility] of insurance. This medical document was created using an electronic medical record system with [employer] dictation system. Although this document has been carefully reviewed, there may still be some phonetic and typographical errors. These areas are purely typographical due to imperfections of the software programs, and do not reflect any compromise in the patient's medical care. This medical document was created using an electronic medical record system with [employer] dictation system. Although this document has been carefully reviewed, there may still be some phonetic and typographical errors. These areas are purely typographical due to imperfections of the software programs, and do not reflect any compromise in the patient's medical care. Plan discussed with: Patient, Daughter My Orders Orders - BOBBY PAL MD Procedure Category Date Status Time Cleanse Wound With MICAH 01/14/25 In Process Wound Clean 18:00 Date of Service: Jan 15, 2025 Billing Provider: BOBBY PAL MD Common Visit Codes: [id number] INP/OBS CARE(HIGH) BOBBY PAL MD Jan 15, 2025 10:49
[2025-01-15 10:59] LABS: INR 1.06 (0.9-1.15); Partial Thromboplastin Time 55.9 SEC (24.5-34.5); Prothrombin Time 11.2 sec (9.3-11.8)
[2025-01-15] MEDS: VANCOMYCIN 500mg/100mL 100 ML IV ONE (11:00)
--- NOTE | 2025-01-15 12:00 | CONS ---
Pharmacy Clinical Information: HEPARIN DRIP, ACS PROTOCOL @1037 APTT 55.9 - NO BOLUS, NO CHANGE, CONTINUE HEPARIN DRIP RATE @ 700 UNITS/HR NEXT APTT DRAW SCHEDULED @1700 PER RX PROTOCOL CONFIRMED AND READ BACK WITH AUBREE PAULA,[facility] RES[facility] Jan 15, 2025 12:00
--- NOTE | 2025-01-15 17:59 | DVHPN2 ---
Progress Note Date Seen: Jan 15, 2025 Resident Creating Document: SUKHDEEP SAENZ RESIDENT Medical Necessity Reason Pt with a Central, PICC or Fol: No Subjective Review of Systems Patient was seen and examined on the bedside. He is alert oriented x3. Mentioned feeling better and no active complaint this time. Scheduled for left and right heart catheterization tomorrow on 01/16/2025. Objective vital signs Vital Sign Date Time Temp Pulse Resp B/P (MAP) Pulse Ox O2 Delivery O2 Flow Rate FiO2 01/15/25 17:00 98.2 77 18 118/62 (80) 98 98.2 01/15/25 10:00 Room Air 0.0 01/15/25 10:00 21 Total Intake and Output 01/14/25 01/14/25 01/15/25 15:00 23:00 07:00 Intake Total 1000 ml 200 ml Output Total 1350 ml Balance -350 ml 200 ml medications Current Medications Medications Dose Ordered Sig/Ricky Route Start Time Stop Time Status Last Admin Dose Admin Vancomycin HCl 0 ml @ 0 mls/hr UD IV 01/07/25 19:30 Ondansetron HCl 4 mg Q4HP PRN IV 01/07/25 19:30 01/11/25 12:34 4 MG Metoprolol Succinate 50 mg DAILY PO 01/08/25 10:00 01/15/25 10:33 50 MG Atorvastatin Calcium 40 mg HS PO 01/08/25 22:00 01/14/25 21:09 40 MG Oxycodone HCl 10 mg ONCE PRN PO 01/10/25 13:45 01/10/25 23:31 10 MG Hydralazine HCl 25 mg Q8HR PO 01/11/25 14:00 01/14/25 14:40 25 MG Acetaminophen/ Hydrocodone Bitart 1 tab Q6HPRN PRN PO 01/11/25 11:00 01/15/25 17:30 1 TAB Nitroglycerin 0.4 mg Q5MINP PRN SL 01/11/25 12:30 Insulin Human Regular HS SC 01/11/25 22:00 01/14/25 21:26 3 UNITS Diagnostic Test (Pha) 1 strip ACHS 01/11/25 17:00 01/15/25 17:29 1 STRIP Insulin Human Regular AC SC 01/11/25 17:00 01/15/25 12:11 3 UNITS Dextrose 50 ml UD PRN IV 01/11/25 13:30 Insulin Glargine 30 units HS SC 01/11/25 22:00 01/14/25 21:26 30 UNITS Aspirin 81 mg DAILY PO 01/12/25 10:00 01/15/25 10:33 81 MG Heparin Sodium/ Dextrose 250 ml @ 8 mls/hr Q24H IV 01/11/25 19:30 Cancel Cefepime HCl 50 ml @ 50 mls/hr DAILY IV 01/15/25 10:00 01/15/25 10:34 50 MLS/HR Heparin Sodium/ Dextrose 250 ml @ 7 mls/hr Q24H IV 01/15/25 03:30 01/15/25 03:19 7 MLS/HR Sodium Chloride 1,000 ml @ 60 mls/hr [id number] IV 01/15/25 18:00 Examination Physical examination: General Appearance: Alert, Oriented X3, Cooperative, No acute distress HEENT: Atraumatic, PERRLA, EOMI, Mucous membrane moist/pink Respiratory: Clear to auscultation, Normal air movement Cardiovascular: Regular rate, Normal S1, Normal S2, No murmurs, no chest wall tenderness Abdominal: Normal bowel sounds, Soft, No tenderness, No hepatospenomegaly, No masses Extremities: Surgical dressing covering rt elbow, No clubbing, No cyanosis, No edema, Normal pulses. Skin: No rashes, No breakdown, No significant lesion Neuro: Normal gait, Normal speech, Strength at 5/5 X4 ext, Normal tone, Sensation intact, Cranial nerves 3-12 NL, Reflexes 2+ Psych/Mental Status: Mental status NL, Mood N laboratory and microbiology Laboratory Tests 01/15/25 06:59 01/14/25 05:24 Test 01/15/25 06:59 Range/Units Serum Glucose 78 74-106 mg/dL Microbiology Date/Time Source Procedure Growth Status 01/10/25 13:17 Elbow Gram Stain - Final Complete 01/10/25 13:17 Wound Culture - Final Staphylococcus aureus Complete 01/07/25 14:04 Blood Blood Culture - Final NO GROWTH AFTER 5 DAYS OF INCUBATION. 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 # Questionable NSTEMI type 1 # Critical aortic stenosis # Hypertensive urgency # Anemia of chronic disease # uncontrolled type 2 diabetes mellitus # Infected olecranon bursitis of rt elbow # Cellulitis of the right elbow Plan: - Stable kidney function with BUN/creatinine 26/1.95 - FENa 3.4% - kidney ultrasound demonstrated bilateral medical renal disease - Scheduled for left and right heart catheterization on 01/16/2025 - IV normal saline @ 60 ml/ hr before and after the procedure until 12 hrs to prevent contrast induced nephropathy - Hold vancomycin as vancomycin trough is 18.1 - Continue metoprolol 50 XL p.o. daily and hydralazine 25 mg Q 8 hours for optimize control of blood pressure - S/P I&D of rt elbow day 5 - continue IV antibiotics as per primary - Moderate ISS - strict I&O - avoid nephrotoxic medication - monitor BMP Thank you so much for the opportunity to consult on your patient. Nephro team will follow the patient. In case of any questions or concerns please feel free to reach out. Plan discussed with Dr. Hansen. The patient and caregiver team agreed to the plan. Addendum Patient seen and examined, plan discussed with resident. Agree with above, we will follow closely recommend de-escalate abx as pt clinically better and per cultures consider ID Plan discussed with: Patient, Other (RN) My Orders My Orders Orders - SUKHDEEP SAENZ Procedure Category Date Status Time Sodium Chloride 0.9% PHA 01/15/25 In Process 18:00 Dietary Evaluation Review Comments: Nutrition Recommendation: 1) [place] 1 pk daily 2) CCHO 60gm + cardiac diet 3) Monitor PO intake, lab values, weight trend, and I/O Expected Outcomes/Goals: Wound to improve Lab values to improve Fu 3-5 days SUKHDEEP SAENZ Jan 15, 2025 17:59 VIPIN HANSEN MD Jan 15, 2025 21:16
[2025-01-15 18:12] LABS: INR 1.01 (0.9-1.15); Partial Thromboplastin Time 43.6 SEC (24.5-34.5); Prothrombin Time 10.7 sec (9.3-11.8)
[2025-01-15] MEDS: SODIUM CHLORIDE 0.9% 1,000 ML IV SCH (18:28)
[2025-01-16] VITALS (12 sets, daily range): BP systolic 116–153; BP diastolic 61–81; PULSE 66–75; RESP 11–20; TEMP 97.5–99; O2SAT 98–100
[2025-01-16 01:30] LABS: INR 1.01 (0.9-1.15); Partial Thromboplastin Time 65.4 SEC (24.5-34.5); Prothrombin Time 10.7 sec (9.3-11.8)
[2025-01-16 07:09] LABS: Hematocrit 32.4 % (41.0-53.0); Hemoglobin 10.9 g/dL (13.5-17.5); Mean Corpuscular Hemoglobin 29.5 pg (28.0-32.0); Mean Corpuscular Volume 87.6 fL (80.0-100.0); Nucleated Red Blood Cells % 0.0 %
[2025-01-16 07:24] LABS: Chloride 106 mmol/L (98-107); Potassium 4.4 mmol/L (3.5-5.1); Sodium 142 mmol/L (136-145)
[2025-01-16 07:25] LABS: Anion Gap 11 (5-15); Calcium 8.5 mg/dL (8.7-10.4); Carbon Dioxide 25 mmol/L (20-31)
[2025-01-16 07:30] LABS: BUN/Creatinine Ratio 19.4 (10.0-20.0)
[2025-01-16 07:31] LABS: Blood Urea Nitrogen 34 mg/dL (9-23); Glucose 73 mg/dL (74-106)
[2025-01-16 07:46] LABS: INR 1.03 (0.9-1.15); Prothrombin Time 10.9 sec (9.3-11.8)
[2025-01-16 07:47] LABS: Partial Thromboplastin Time 81.4 SEC (24.5-34.5)
[2025-01-16] MEDS ORDERED: HEPARIN DRIP/D5W 100UNITS/ML 250 ML IV SCH (08:00)
--- NOTE | 2025-01-16 08:50 | CONS ---
Pharmacy Clinical Information: HEPARIN DRIP, ACS PROTOCOL @0624 APTT = 81.4, NO BOLUS, REDUCE DOSE BY 200 UNITS (FROM 900 TO 700) NEXT APTT DRAW SCHEDULED @1400 PER RX PROTOCOL CONFIRMED AND READ BACK WITH PAULO [facility] RESIDENT Jan 16, 2025 08:50
--- NOTE | 2025-01-16 10:50 | DVHPN2 ---
Progress Note Date Seen: Jan 16, 2025 Resident Creating Document: SUKHDEEP SAENZ RESIDENT Medical Necessity Reason Pt with a Central, PICC or Fol: No Subjective Review of Systems Patient was seen and examined on the bedside. He is alert oriented x3. Mentioned feeling better and no active complaint this time. Went to garden labourer for left and right heart catheterization today Objective vital signs Vital Sign Date Time Temp Pulse Resp B/P (MAP) Pulse Ox O2 Delivery O2 Flow Rate FiO2 01/16/25 09:00 97.9 68 20 137/75 (95) 100 97.9 01/16/25 08:10 Room Air* 0 21 Total Intake and Output 01/15/25 01/15/25 01/16/25 15:00 23:00 07:00 Intake Total 50 ml 250 ml 400 ml Output Total 650 ml 775 ml Balance 50 ml -400 ml -375 ml medications Current Medications Medications Dose Ordered Sig/Ricky Route Start Time Stop Time Status Last Admin Dose Admin Vancomycin HCl 0 ml @ 0 mls/hr UD IV 01/07/25 19:30 Ondansetron HCl 4 mg Q4HP PRN IV 01/07/25 19:30 01/11/25 12:34 4 MG Metoprolol Succinate 50 mg DAILY PO 01/08/25 10:00 01/15/25 10:33 50 MG Atorvastatin Calcium 40 mg HS PO 01/08/25 22:00 01/15/25 21:29 40 MG Oxycodone HCl 10 mg ONCE PRN PO 01/10/25 13:45 01/10/25 23:31 10 MG Hydralazine HCl 25 mg Q8HR PO 01/11/25 14:00 01/16/25 05:43 25 MG Acetaminophen/ Hydrocodone Bitart 1 tab Q6HPRN PRN PO 01/11/25 11:00 01/15/25 17:30 1 TAB Nitroglycerin 0.4 mg Q5MINP PRN SL 01/11/25 12:30 Insulin Human Regular HS SC 01/11/25 22:00 01/15/25 21:48 6 UNITS Diagnostic Test (Pha) 1 strip ACHS 01/11/25 17:00 01/16/25 05:43 1 STRIP Insulin Human Regular AC SC 01/11/25 17:00 01/15/25 17:00 2 UNITS Dextrose 50 ml UD PRN IV 01/11/25 13:30 Insulin Glargine 30 units HS SC 01/11/25 22:00 01/15/25 21:47 30 UNITS Aspirin 81 mg DAILY PO 01/12/25 10:00 01/15/25 10:33 81 MG Heparin Sodium/ Dextrose 250 ml @ 8 mls/hr Q24H IV 01/11/25 19:30 Cancel Cefepime HCl 50 ml @ 50 mls/hr DAILY IV 01/15/25 10:00 01/15/25 10:34 50 MLS/HR Sodium Chloride 1,000 ml @ 60 mls/hr [id number] IV 01/15/25 18:00 01/15/25 18:28 60 MLS/HR Heparin Sodium/ Dextrose 250 ml @ 7 mls/hr Q24H IV 01/16/25 08:00 Examination Physical examination: General Appearance: Alert, Oriented X3, Cooperative, No acute distress HEENT: Atraumatic, PERRLA, EOMI, Mucous membrane moist/pink Respiratory: Clear to auscultation, Normal air movement Cardiovascular: Regular rate, Normal S1, Normal S2, No murmurs, no chest wall tenderness Abdominal: Normal bowel sounds, Soft, No tenderness, No hepatospenomegaly, No masses Extremities: Surgical dressing covering rt elbow, No clubbing, No cyanosis, No edema, Normal pulses. Skin: No rashes, No breakdown, No significant lesion Neuro: Normal gait, Normal speech, Strength at 5/5 X4 ext, Normal tone, Sensation intact, Cranial nerves 3-12 NL, Reflexes 2+ Psych/Mental Status: Mental status NL, Mood N laboratory and microbiology Laboratory Tests 01/16/25 06:24 Test 01/16/25 06:24 Range/Units Serum Glucose 73 L 74-106 mg/dL Microbiology Date/Time Source Procedure Growth Status 01/10/25 13:17 Elbow Gram Stain - Final Complete 01/10/25 13:17 Wound Culture - Final Staphylococcus aureus Complete 01/07/25 14:04 Blood Blood Culture - Final NO GROWTH AFTER 5 DAYS OF INCUBATION. 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 - IV normal saline @ 60 ml/ hr before and after the procedure until 12 hrs to prevent contrast induced nephropathy - Hold vancomycin as vancomycin trough is 18.1 - Continue metoprolol 50 XL p.o. daily and hydralazine 25 mg Q 8 hours for optimize control of blood pressure - S/P I&D of rt elbow day 5 - continue IV antibiotics as per primary - Moderate ISS - strict I&O - avoid nephrotoxic medication - monitor BMP Thank you so much for the opportunity to consult on your patient. Nephro team will follow the patient. In case of any questions or concerns please feel free to reach out. Plan discussed with Dr. Hansen. The patient and caregiver team agreed to the plan. Addendum Patient seen and examined, plan discussed with resident. Agree with above, we will follow closely Plan discussed with: Patient, Other (RN) My Orders My Orders Orders - SUKHDEEP SAENZ Procedure Category Date Status Time Sodium Chloride 0.9% PHA 01/15/25 In Process 18:00 Dietary Evaluation Review Comments: Nutrition Recommendation: 1) [place] 1 pk daily 2) CCHO 60gm + cardiac diet 3) Monitor PO intake, lab values, weight trend, and I/O Expected Outcomes/Goals: Wound to improve Lab values to improve Fu 3-5 days SUKHDEEP SAENZ Jan 16, 2025 10:50 VIPIN HANSEN MD Jan 17, 2025 11:08
[2025-01-16] MEDS: VANCOMYCIN 500mg/100mL 100 ML IV ONE (12:00)
[2025-01-16] MEDS: IODIXANOL 320MG/ML 100ML BTL IV ONE (12:15)
[2025-01-16] MEDS: VERAPAMIL 2.5MG/ML INJ 2ML VIAL IV ONE (12:25)
[2025-01-16] MEDS: fentaNYL CITRATE 100 MCG/2 ML VL ONE (12:25)
[2025-01-16] MEDS: ANGIOMAX 250 MG VIAL IV ONE (12:25)
[2025-01-16] MEDS: HEPARIN SODIUM (PORCINE) 5000 UNITS/ML 1ML VIAL ONE ×2 (12:25→12:59)
[2025-01-16] MEDS: SODIUM CHL 0.9% 50 ML ONE (12:26)
[2025-01-16] MEDS: MIDAZOLAM HCL 2MG/2ML 2ml VIAL (1mg/ml) ONE (12:26)
[2025-01-16] MEDS: LIDOCAINE 2%HCL (LOCAL ANESTH.) INJ 20ML MDV ONE (12:26)
--- NOTE | 2025-01-16 12:43 | DVHPN2 ---
Reviewed: Care Plan, H&P, Labs, Medications, Previous Orders, Radiology Changes from previous H/P or p: No Changes General: Per HPI Objective Vitals Vital Signs Date Time Temp Pulse Resp B/P (MAP) Pulse Ox O2 Delivery O2 Flow Rate FiO2 01/16/25 10:00 Room Air 0.0 01/16/25 10:00 21 01/16/25 09:00 97.9 68 20 137/75 (95) 100 97.9 Intake/Output Intake and Output 01/16/25 07:00 Intake Total 700 ml Output Total 1425 ml Balance -725 ml Intake Oral 650 ml IV Total 50 ml Output Urine Total 1425 ml General Appearance: Alert, Oriented X3, Cooperative, No acute distress HEENT: Atraumatic, PERRLA, EOMI, Mucous membr. moist/pink Neck: Supple Lungs: Clear to auscultation, Normal air movement Cardiovascular: Regular rate, Normal S1, Normal S2, No murmurs, Gallops, Rubs Abdomen: Normal bowel sounds, Soft, No tenderness Neuro: Cranial nerves 3-12 NL Psych/Mental Status: Mental status NL Medications Current Medications Medications Dose Ordered Sig/Ricky Route Start Time Stop Time Status Last Admin Dose Admin Vancomycin HCl 0 ml @ 0 mls/hr UD IV 01/07/25 19:30 Ondansetron HCl 4 mg Q4HP PRN IV 01/07/25 19:30 01/11/25 12:34 4 MG Metoprolol Succinate 50 mg DAILY PO 01/08/25 10:00 01/15/25 10:33 50 MG Atorvastatin Calcium 40 mg HS PO 01/08/25 22:00 01/15/25 21:29 40 MG Oxycodone HCl 10 mg ONCE PRN PO 01/10/25 13:45 01/10/25 23:31 10 MG Hydralazine HCl 25 mg Q8HR PO 01/11/25 14:00 01/16/25 05:43 25 MG Acetaminophen/ Hydrocodone Bitart 1 tab Q6HPRN PRN PO 01/11/25 11:00 01/15/25 17:30 1 TAB Nitroglycerin 0.4 mg Q5MINP PRN SL 01/11/25 12:30 Insulin Human Regular HS SC 01/11/25 22:00 01/15/25 21:48 6 UNITS Diagnostic Test (Pha) 1 strip ACHS 01/11/25 17:00 01/16/25 05:43 1 STRIP Insulin Human Regular AC SC 01/11/25 17:00 01/15/25 17:00 2 UNITS Dextrose 50 ml UD PRN IV 01/11/25 13:30 Insulin Glargine 30 units HS SC 01/11/25 22:00 01/15/25 21:47 30 UNITS Aspirin 81 mg DAILY PO 01/12/25 10:00 01/15/25 10:33 81 MG Heparin Sodium/ Dextrose 250 ml @ 8 mls/hr Q24H IV 01/11/25 19:30 Cancel Cefepime HCl 50 ml @ 50 mls/hr DAILY IV 01/15/25 10:00 01/15/25 10:34 50 MLS/HR Sodium Chloride 1,000 ml @ 60 mls/hr [id number] IV 01/15/25 18:00 01/15/25 18:28 60 MLS/HR Heparin Sodium/ Dextrose 250 ml @ 7 mls/hr Q24H IV 01/16/25 08:00 Laboratory Results Laboratory Tests 01/16/25 06:24 Chemistry Test 01/16/25 06:24 Calcium Level 8.5 mg/dL (8.7-10.4) L Coagulation Test 01/15/25 17:04 01/16/25 00:31 01/16/25 06:24 Prothrombin Time 10.7 sec (9.3-11.8) 10.7 sec (9.3-11.8) 10.9 sec (9.3-11.8) Prothrombin Time INR 1.01 (0.9-1.15) 1.01 (0.9-1.15) 1.03 (0.9-1.15) Activated Partial Thromboplast Time 43.6 SEC (24.5-34.5) H 65.4 SEC (24.5-34.5) H 81.4 SEC (24.5-34.5) *H Urinalysis Test 01/08/25 00:00 01/08/25 10:12 Urine Protein/Creatinine Ratio 1.75 Urine Total Protein 86.7 mg/dL (1-14) H Urine Color Light-yellow (Yellow) Urine Clarity Clear (Clear) Urine pH 5.5 (5.0-9.0) Urine Specific [place] 1.013 (1.001-1.035) Urine Protein 1+ (Negative) H Urine Ketones Negative (Negative) Urine Blood Negative /uL (Negative) Urine Nitrite Negative (Negative) Urine Bilirubin Negative (Negative) Urine Urobilinogen Normal mg/dL (Negative) Urine Leukocyte Esterase Negative /uL (Negative) Urine RBC 1 /hpf (0 - 3) Urine Microscopic WBC < 1 /HPF (0-3) Urine Squamous Epithelial Cells Few /hpf (<5) Urine Bacteria None seen /hpf (None Seen) Urine Hyaline Casts Few /lpf (0 - 2) Urine Creatinine 52.51 mg/dL (30.0-125.0) Urine Sodium 123 mmol/L (40-220) Urine Glucose 2+ mg/dL (Normal) H Microbiology Microbiology Date/Time Source Procedure Growth Status 01/10/25 13:17 Elbow Gram Stain - Final Complete 01/10/25 13:17 Wound Culture - Final Staphylococcus aureus Complete 01/07/25 14:04 Blood Blood Culture - Final NO GROWTH AFTER 5 DAYS OF INCUBATION. Complete Labs and/or images reviewed: Labs reviewed by me, Image(s) reviewed by me Assessment/Plan Assessment/Plan Right elbow cellulitis with the small fluid collection seen on CT of the elbow Hypertension Acute on chronic renal failure Diabetes mellitus Chest pain with abnormal EKG (review by me) Severe Aortic Stenosis. Echo show: Mild LVH and mild LV diastolic dysfunction. LV EF is 65% Critical Aortic stenosis, Peak Aortic valve gradient is 73, and mean gradient is 28MM of Hg Posterior MV calcified. No effusion. Continuing current management. Continuing with IV antibiotic take vancomycin and cefepime. We will monitor kidney function. Continuing sliding scale insulin. Continuing pain medication with IV morphine and Prole. Nitrostat 0.4mg sl q5 min PRN for chest pain. Maximum three dosage per 15 minutes Appreciate Cardiology input. Per push connector assembler, patient need to transfer to higher level of care for Aortic valve replacement. I LYNSEY Durant cardiothoracic surgeon. He request the official echo result (at the time I spoke with him, the official report is not available yet), he also request cardiac cath. He decline to accept patient until all of result available and he will reevaluate to see if patient need to be transfer to higher level of care right away or outpatient management. LYNSEY egg caser. Will DW cardiology service. SW with son regarding to plan of care. IR consult to see if the drainage from his elbow abscess can be remove and wound care can start. Per Ortho, drainage can be remove and start wound care. Per push connector assembler, cardiac cath on Jan 16. Insurance will transfer him to the facility that contract with his insurance. 01/15: DW daughter and patient regarding plan of care. Explain the cardiac cath procedure. Explain finding from echo which show severe Aortic stenosis. Explain the Cardiothoracic surgeon request echo and cardiac cath to evaluate the valve stenosis. DW also about insurance and [facility] 01/16/2025: discussed with family at bedside. Cardio to carry out " PTCA and stenting as well as shockwave therapy with lithotripsy of the RCA and stenting of the RCA". Plan discussed with: Patient Date of Service: Jan 16, 2025 Billing Provider: LEAH LEVINE DO Common Visit Codes: [id number] INP/OBS CARE(HIGH) LEAH LEVINE DO Jan 16, 2025 12:43
--- NOTE | 2025-01-16 13:24 | DVHOP2 ---
Operative Report - 2 Report Details Date: 01/16/25 Preop Diagnosis: CAD Postop Diagnosis: Stenotic RCA Surgeon: Nan Wilcox MD Anesthesiologist: Conscious sedation Anesthesia: Mac, Local, Regional Consent: The patient was informed of the risks and benefits of the procedure. These include but are not limited to complications of anesthesia, postoperative infection, incomplete relief of symptoms, recurrence of symptoms, damage to blood vessels, nerves and tendons, deep venous thrombosis, pulmonary embolism and possible need for repeat surgery in the future. Complications: No complications Findings: Stenotic RCA. No congestive heart failure. Indications for Surgery: Chest pain Name of Procedure Performed Left heart catheterization. Bilateral cine coronary angiography. Left ventriculography. Shockwave lithotripsy of the RCA. PTCA and stenting of the RCA Procedure Details Procedure Details: Prior local anesthesia with 2% lidocaine to the right wrist and full informed consent obtained the patient was prepped and draped in the usual fashion followed by placement of a six [place] sheath into the right radial artery through which a Rigo catheter was used to cannulate the left main. A multipurpose catheter was used to cannulate the RCA and left ventricle.. Hemodynamics aortic blood pressure was 115/70. End-diastolic pressure was six. There was no gradient across the aortic valve on pullback. Coronary anatomy.: The RCA is a medium caliber vessel it has moderate plaquing. The proximal and midportion are notably calcific. There is a stenosis at its mid section of the about 80% which is calcified. The distal segment has [id number] plaquing but free of any critical disease. PDA and posterolateral branches are normal. Left main is large. It has no critical lesions in its proximal mid or distal segments. Left anterior descending coronary artery has moderate calcification. Mild plaquing. The proximal mid and distal segments of the LAD are normal. Di agonals are free of significant disease. The circumflex has two obtuse marginals free of significant disease. The proximal circumflex itself has a 30-40% proximal stenosis. FFR was 0.88 consistent with noncritical disease. Ventriculography in the AMBROSE projection shows an EF of 65% without wall motion abnormalities. Angioplasty was performed for which a JR4 was placed. A Specter wire placed distally into the posterolateral branch and a 2.5 x 12 mm shockwave balloon was placed. 13-15 inflations were performed at six atmospheres with shockwave treatment throughout the mid and proximal segments of the RCA. There was notable improvement in diameter. Excellent antegrade flow. No significant thrombus or dissection present. A 2.5 x 36 mm cali Medtronic drug-eluting stent was placed at a proximally 15 atmospheres at the proximal and mid section. There was excellent antegrade fl ow. No dissection or otherwise anomalies present. Impression: Normal left ventricular end-diastolic pressure at rest with normal ejection fraction. Single-vessel coronary artery disease as delineated above with successful PTCA and stenting as well as shockwave therapy with lithotripsy of the RCA and stenting of the RCA. Recommendations: Medical therapy we will continue. Dual antiplatelet therapy. We will follow up as an outpatient. Continue with lipid-lowering therapy and afterload reduction. Antihypertensives as needed. Condition Fair Disposition Still a Patient Date of Service: Jan 16, 2025 Billing Provider: NAN WILCOX Sr., MD Cardiology Common Codes: [id number] INP/OBS CARE (High) Cardiology Procedure Codes: 50870 -PTCA W/STENT PLACEMENT (Intravascular lithotripsy of the RCA. Fractional flow reserve evaluation proximal circumflex), [id number] HEART CATH W/INTRA INJ NAN WILCOX Sr., MD Jan 16, 2025 13:24
[2025-01-16] MEDS: CLOPIDOGREL BISULFATE 75 MG TAB ONE (13:29)
[2025-01-17] VITALS (9 sets, daily range): BP systolic 113–156; BP diastolic 61–90; PULSE 67–85; RESP 17–18; TEMP 98.1–98.4; O2SAT 94–99
[2025-01-17 06:11] LABS: Hematocrit 32.0 % (41.0-53.0); Hemoglobin 10.9 g/dL (13.5-17.5); Mean Corpuscular Hemoglobin 29.8 pg (28.0-32.0); Mean Corpuscular Volume 87.3 fL (80.0-100.0); Nucleated Red Blood Cells % 0.1 %
[2025-01-17 06:26] LABS: Alanine Aminotransferase 23 U/L (7-40); Albumin 3.6 g/dL (3.2-4.8); Alkaline Phosphatase 73 U/L (46-116); Anion Gap 11 (5-15); BUN/Creatinine Ratio 11.8 (10.0-20.0); Blood Urea Nitrogen 20 mg/dL (9-23); Carbon Dioxide 24 mmol/L (20-31); Potassium 4.1 mmol/L (3.5-5.1); Sodium 143 mmol/L (136-145); Total Protein 6.0 g/dL (5.7-8.2)
[2025-01-17 06:27] LABS: Bilirubin, Total 0.3 mg/dL (0.2-1.0)
[2025-01-17 06:31] LABS: Calcium 8.6 mg/dL (8.7-10.4); Chloride 108 mmol/L (98-107); Glucose 54 mg/dL (74-106)
[2025-01-17] MEDS: CLOPIDOGREL BISULFATE 75 MG TAB PO SCH (09:30)
[2025-01-17] MEDS: ENOXAPARIN SOD 30 MG/0.3 ML SYRINGE SC SCH (09:31)
[2025-01-17] MEDS: VANCOMYCIN 500mg/100mL 100 ML IV ONE (11:56)
--- NOTE | 2025-01-17 13:39 | DVHPN2 ---
Reviewed: Care Plan, H&P, Labs, Medications, Previous Orders, Radiology Changes from previous H/P or p: No Changes General: Per HPI Objective Vitals Vital Signs Date Time Temp Pulse Resp B/P (MAP) Pulse Ox O2 Delivery O2 Flow Rate FiO2 01/17/25 09:30 85 130/71 01/17/25 09:00 98.3 18 97 98.3 01/16/25 20:00 Room Air* 0 21 Intake/Output Intake and Output 01/17/25 07:00 Intake Total 250 ml Output Total 950 ml Balance -700 ml Intake Oral 250 ml Output Urine Total 950 ml General Appearance: Alert, Oriented X3, Cooperative, No acute distress HEENT: Atraumatic, PERRLA, EOMI, Mucous membr. moist/pink Neck: Supple Lungs: Clear to auscultation, Normal air movement Cardiovascular: Regular rate, Normal S1, Normal S2, No murmurs, Gallops, Rubs Abdomen: Normal bowel sounds, Soft, No tenderness Neuro: Cranial nerves 3-12 NL Psych/Mental Status: Mental status NL Medications Current Medications Medications Dose Ordered Sig/Ricky Route Start Time Stop Time Status Last Admin Dose Admin Vancomycin HCl 0 ml @ 0 mls/hr UD IV 01/07/25 19:30 Ondansetron HCl 4 mg Q4HP PRN IV 01/07/25 19:30 01/11/25 12:34 4 MG Metoprolol Succinate 50 mg DAILY PO 01/08/25 10:00 01/17/25 09:30 50 MG Atorvastatin Calcium 40 mg HS PO 01/08/25 22:00 01/16/25 22:34 40 MG Oxycodone HCl 10 mg ONCE PRN PO 01/10/25 13:45 01/10/25 23:31 10 MG Hydralazine HCl 25 mg Q8HR PO 01/11/25 14:00 01/17/25 06:06 25 MG Acetaminophen/ Hydrocodone Bitart 1 tab Q6HPRN PRN PO 01/11/25 11:00 01/16/25 15:17 1 TAB Nitroglycerin 0.4 mg Q5MINP PRN SL 01/11/25 12:30 Insulin Human Regular HS SC 01/11/25 22:00 01/16/25 22:33 4 UNITS Diagnostic Test (Pha) 1 strip ACHS 01/11/25 17:00 01/17/25 06:14 1 STRIP Insulin Human Regular AC SC 01/11/25 17:00 01/17/25 11:18 2 UNITS Dextrose 50 ml UD PRN IV 01/11/25 13:30 Insulin Glargine 30 units HS SC 01/11/25 22:00 01/16/25 22:34 30 UNITS Aspirin 81 mg DAILY PO 01/12/25 10:00 01/17/25 09:29 81 MG Heparin Sodium/ Dextrose 250 ml @ 8 mls/hr Q24H IV 01/11/25 19:30 Cancel Cefepime HCl 50 ml @ 50 mls/hr DAILY IV 01/15/25 10:00 01/17/25 09:31 50 MLS/HR Sodium Chloride 1,000 ml @ 60 mls/hr [id number] IV 01/15/25 18:00 01/17/25 11:57 60 MLS/HR Clopidogrel Bisulfate 75 mg DAILY PO 01/17/25 10:00 01/17/25 09:30 75 MG Enoxaparin Sodium 30 mg DAILY SC 01/17/25 10:00 01/17/25 09:31 30 MG Laboratory Results Laboratory Tests 01/17/25 05:10 Chemistry Test 01/17/25 05:10 Albumin 3.6 g/dL (3.2-4.8) Calcium Level 8.6 mg/dL (8.7-10.4) L Total Protein 6.0 g/dL (5.7-8.2) LFT Test 01/17/25 05:10 Alanine Aminotransferase (ALT) 23 U/L (7-40) Alkaline Phosphatase 73 U/L (46-116) Aspartate Amino Transferase (AST) 18 U/L (13-40) Total Bilirubin 0.3 mg/dL (0.2-1.0) Urinalysis Test 01/08/25 00:00 01/08/25 10:12 Urine Protein/Creatinine Ratio 1.75 Urine Total Protein 86.7 mg/dL (1-14) H Urine Color Light-yellow (Yellow) Urine Clarity Clear (Clear) Urine pH 5.5 (5.0-9.0) Urine Specific [place] 1.013 (1.001-1.035) Urine Protein 1+ (Negative) H Urine Ketones Negative (Negative) Urine Blood Negative /uL (Negative) Urine Nitrite Negative (Negative) Urine Bilirubin Negative (Negative) Urine Urobilinogen Normal mg/dL (Negative) Urine Leukocyte Esterase Negative /uL (Negative) Urine RBC 1 /hpf (0 - 3) Urine Microscopic WBC < 1 /HPF (0-3) Urine Squamous Epithelial Cells Few /hpf (<5) Urine Bacteria None seen /hpf (None Seen) Urine Hyaline Casts Few /lpf (0 - 2) Urine Creatinine 52.51 mg/dL (30.0-125.0) Urine Sodium 123 mmol/L (40-220) Urine Glucose 2+ mg/dL (Normal) H Microbiology Microbiology Date/Time Source Procedure Growth Status 01/10/25 13:17 Elbow Gram Stain - Final Complete 01/10/25 13:17 Wound Culture - Final Staphylococcus aureus Complete 01/07/25 14:04 Blood Blood Culture - Final NO GROWTH AFTER 5 DAYS OF INCUBATION. Complete Labs and/or images reviewed: Labs reviewed by me, Image(s) reviewed by me Assessment/Plan Assessment/Plan Right elbow cellulitis with the small fluid collection seen on CT of the elbow Hypertension Acute on chronic renal failure Diabetes mellitus Chest pain with abnormal EKG (review by me) Severe Aortic Stenosis. Echo show: Mild LVH and mild LV diastolic dysfunction. LV EF is 65% Critical Aortic stenosis, Peak Aortic valve gradient is 73, and mean gradient is 28MM of Hg Posterior MV calcified. No effusion. Continuing current management. Continuing with IV antibiotic take vancomycin and cefepime. We will monitor kidney function. Continuing sliding scale insulin. Continuing pain medication with IV morphine and [place]. Nitrostat 0.4mg sl q5 min PRN for chest pain. Maximum three dosage per 15 minutes Appreciate Cardiology input. Per phone manager, patient need to transfer to higher level of care for Aortic valve replacement. 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 He request the official echo result (at the time I spoke with him, the official report is not available yet), he also request cardiac cath. He decline to accept patient until all of result available and he will reevaluate to see if patient need to be transfer to higher level of care right away or outpatient management. 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 Will LYNSEY cardiology service. SW with son regarding to plan of care. IR consult to see if the drainage from his elbow abscess can be remove and wound care can start. Per Ortho, drainage can be remove and start wound care. Per phone manager, cardiac cath on Jan 16. Insurance will transfer him to the facility that contract with his insurance. 01/15: DW daughter and patient regarding plan of care. Explain the cardiac cath procedure. Explain finding from echo which show severe Aortic stenosis. Explain the Cardiothoracic surgeon request echo and cardiac cath to evaluate the valve stenosis. DW also about insurance and the request to transfer patient to [facility] insurance. 01/16/2025: discussed with family at bedside. Cardio to carry out " PTCA and stenting as well as shockwave therapy with lithotripsy of the RCA and stenting of the RCA". 01/17/2025: possible d/c home when appropriate, will have PT/OT evaluate pt first. Plan discussed with: Patient Date of Service: Jan 17, 2025 Billing Provider: LEAH LEVINE DO Common Visit Codes: [id number] INP/OBS CARE(HIGH) LEAH LEVINE DO Jan 17, 2025 13:39
--- NOTE | 2025-01-17 15:06 | DVHPN2 ---
Consult Progress Note Subjective Other Systems: Patient in normal sinus rhythm on quality assurance monitor chassis No complaints of cardiac symptoms at time of assessment. Objective vital signs Vital Sign Date Time Temp Pulse Resp B/P (MAP) Pulse Ox O2 Delivery O2 Flow Rate FiO2 01/17/25 14:21 133/72 01/17/25 13:00 98.4 75 18 98 98.4 01/17/25 10:00 Nasal Cannula 3.0 01/17/25 10:00 32 Total Intake and Output 01/16/25 01/16/25 01/17/25 15:00 23:00 07:00 Intake Total 0 ml 250 ml Output Total 450 ml 500 ml Balance -450 ml -250 ml medications Current Medications Medications Dose Ordered Sig/Ricky Route Start Time Stop Time Status Last Admin Dose Admin Vancomycin HCl 0 ml @ 0 mls/hr UD IV 01/07/25 19:30 Ondansetron HCl 4 mg Q4HP PRN IV 01/07/25 19:30 01/11/25 12:34 4 MG Metoprolol Succinate 50 mg DAILY PO 01/08/25 10:00 01/17/25 09:30 50 MG Atorvastatin Calcium 40 mg HS PO 01/08/25 22:00 01/16/25 22:34 40 MG Oxycodone HCl 10 mg ONCE PRN PO 01/10/25 13:45 01/10/25 23:31 10 MG Hydralazine HCl 25 mg Q8HR PO 01/11/25 14:00 01/17/25 14:21 25 MG Acetaminophen/ Hydrocodone Bitart 1 tab Q6HPRN PRN PO 01/11/25 11:00 01/16/25 15:17 1 TAB Nitroglycerin 0.4 mg Q5MINP PRN SL 01/11/25 12:30 Insulin Human Regular HS SC 01/11/25 22:00 01/16/25 22:33 4 UNITS Diagnostic Test (Pha) 1 strip ACHS 01/11/25 17:00 01/17/25 06:14 1 STRIP Insulin Human Regular AC SC 01/11/25 17:00 01/17/25 11:18 2 UNITS Dextrose 50 ml UD PRN IV 01/11/25 13:30 Insulin Glargine 30 units HS SC 01/11/25 22:00 01/16/25 22:34 30 UNITS Aspirin 81 mg DAILY PO 01/12/25 10:00 01/17/25 09:29 81 MG Heparin Sodium/ Dextrose 250 ml @ 8 mls/hr Q24H IV 01/11/25 19:30 Cancel Cefepime HCl 50 ml @ 50 mls/hr DAILY IV 01/15/25 10:00 01/17/25 09:31 50 MLS/HR Sodium Chloride 1,000 ml @ 60 mls/hr [id number] IV 01/15/25 18:00 01/17/25 11:57 60 MLS/HR Clopidogrel Bisulfate 75 mg DAILY PO 01/17/25 10:00 01/17/25 09:30 75 MG Enoxaparin Sodium 30 mg DAILY SC 01/17/25 10:00 01/17/25 09:31 30 MG Examination: GENERAL:Normal, LUNGS:Normal, CVS:Normal, NEURO:Normal laboratory and microbiology Laboratory Tests 01/17/25 05:10 Test 01/17/25 05:10 Range/Units Serum Glucose 54 L 74-106 mg/dL Problem List/Assessment/Plan Problem List/Assessment/Plan NSTEMI type 1 s/p PTCA and stenting of RCA Hypertensive urgency Diabetes mellitus, newly diagnosed Dyslipidemia 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 Wilcox) Case discussed in full detail with Dr. Wilcox. A transthoracic echocardiogram revealed LVEF 65% with "critical aortic stenosis: ELIZABETH 0.86 cm2, peak gradient of 73mmHg and mean gradient of 28 mmHg". The patient underwent a coronary angiogram with left heart catheterization status post PTCA and stenting as well as shockwave therapy with lithotripsy of the RCA and stenting of the RCA. Continue with dual antiplatelet therapy and lipid-lowering agent. personally reviewed transthoracic echocardiogram (which was read by another submarine diver) echocardiogram reveals hypertrophic cardiomyopathy with minimal obstructive features. No critical aortic valve stenosis identified. We will recommend to enroll patient in [employer]. The patient reports that he is pending an appointment with a new submarine diver in [place]. The patient reports he lives in [place] and was only visiting family member in his area. He states he is planning to go back home to [place] post discharge. There is no further inpatient cardiac workup indicated at this time. The patient has been educated to follow up with his submarine diver in [place]. The patient will benefit from [facility] enrollment which should be done through his primary submarine diver. Thank you for allowing us to participate in this patient's care. Please call if you have any questions or concerns. This medical document was created using an electronic medical record system with voice recognition software and computerized dictation system. Although this document has been carefully reviewed, there might still be some phonetic and typographical errors. Occasional wrong-word or ``sound-alike substitutions may have occurred due to the inherent limitations of voice recognition software. These areas are purely typographical due to imperfections of the software programs and do not reflect any compromise in the patient's medical care. Please read the chart carefully and recognize, using context, where these substitutions have occurred. Plan discussed with: Patient Dietary Evaluation Review Comments: Nutrition Recommendation: 1) [place] 1 pk daily 2) CCHO 60gm + cardiac diet 3) Monitor PO intake, lab values, weight trend, and I/O Expected Outcomes/Goals: Wound to improve Lab values to improve Fu 3-5 days Date of Service: Jan 17, 2025 Billing Provider: ERIK LEI Common Visit Codes: [id number] INP/OBS CARE(HIGH) ERIK LEI Jan 17, 2025 15:06
--- NOTE | 2025-01-17 18:05 | DVHPN2 ---
Progress Note Date Seen: Jan 17, 2025 Resident Creating Document: SUKHDEEP SAENZ RESIDENT Medical Necessity Reason Pt with a Central, PICC or Fol: No Subjective Review of Systems Patient was seen and examined on the bedside. He is alert oriented x3. Mentioned feeling better and no active complaint this time. Status post PTCA x1 stent to RCA . Objective vital signs Vital Sign Date Time Temp Pulse Resp B/P (MAP) Pulse Ox O2 Delivery O2 Flow Rate FiO2 01/17/25 14:21 133/72 01/17/25 13:00 98.4 75 18 98 98.4 01/17/25 10:00 Nasal Cannula 3.0 01/17/25 10:00 32 Total Intake and Output 01/16/25 01/16/25 01/17/25 15:00 23:00 07:00 Intake Total 0 ml 250 ml Output Total 450 ml 500 ml Balance -450 ml -250 ml medications Current Medications Medications Dose Ordered Sig/Ricky Route Start Time Stop Time Status Last Admin Dose Admin Vancomycin HCl 0 ml @ 0 mls/hr UD IV 01/07/25 19:30 Ondansetron HCl 4 mg Q4HP PRN IV 01/07/25 19:30 01/11/25 12:34 4 MG Metoprolol Succinate 50 mg DAILY PO 01/08/25 10:00 01/17/25 09:30 50 MG Atorvastatin Calcium 40 mg HS PO 01/08/25 22:00 01/16/25 22:34 40 MG Oxycodone HCl 10 mg ONCE PRN PO 01/10/25 13:45 01/10/25 23:31 10 MG Hydralazine HCl 25 mg Q8HR PO 01/11/25 14:00 01/17/25 14:21 25 MG Acetaminophen/ Hydrocodone Bitart 1 tab Q6HPRN PRN PO 01/11/25 11:00 01/17/25 15:16 1 TAB Nitroglycerin 0.4 mg Q5MINP PRN SL 01/11/25 12:30 Insulin Human Regular HS SC 01/11/25 22:00 01/16/25 22:33 4 UNITS Diagnostic Test (Pha) 1 strip ACHS 01/11/25 17:00 01/17/25 06:14 1 STRIP Insulin Human Regular AC SC 01/11/25 17:00 01/17/25 17:40 2 UNITS Dextrose 50 ml UD PRN IV 01/11/25 13:30 Insulin Glargine 30 units HS SC 01/11/25 22:00 01/16/25 22:34 30 UNITS Aspirin 81 mg DAILY PO 01/12/25 10:00 01/17/25 09:29 81 MG Heparin Sodium/ Dextrose 250 ml @ 8 mls/hr Q24H IV 01/11/25 19:30 Cancel Cefepime HCl 50 ml @ 50 mls/hr DAILY IV 01/15/25 10:00 01/17/25 09:31 50 MLS/HR Clopidogrel Bisulfate 75 mg DAILY PO 01/17/25 10:00 01/17/25 09:30 75 MG Enoxaparin Sodium 30 mg DAILY SC 01/17/25 10:00 01/17/25 09:31 30 MG Examination Physical examination: General Appearance: Alert, Oriented X3, Cooperative, No acute distress HEENT: Atraumatic, PERRLA, EOMI, Mucous membrane moist/pink Respiratory: Clear to auscultation, Normal air movement Cardiovascular: Regular rate, Normal S1, Normal S2, No murmurs, no chest wall tenderness Abdominal: Normal bowel sounds, Soft, No tenderness, No hepatospenomegaly, No masses Extremities: Surgical dressing covering rt elbow, No clubbing, No cyanosis, No edema, Normal pulses. Skin: No rashes, No breakdown, No significant lesion Neuro: Normal gait, Normal speech, Strength at 5/5 X4 ext, Normal tone, Sensation intact, Cranial nerves 3-12 NL, Reflexes 2+ Psych/Mental Status: Mental status NL, Mood N laboratory and microbiology Laboratory Tests 01/17/25 05:10 Test 01/17/25 05:10 Range/Units Serum Glucose 54 L 74-106 mg/dL Microbiology Date/Time Source Procedure Growth Status 01/10/25 13:17 Elbow Gram Stain - Final Complete 01/10/25 13:17 Wound Culture - Final Staphylococcus aureus Complete 01/07/25 14:04 Blood Blood Culture - Final NO GROWTH AFTER 5 DAYS OF INCUBATION. 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 daily and hydralazine 25 mg Q 8 hours for optimize control of blood pressure - S/P I&D of rt elbow day 6 - continue IV antibiotics as per primary - Moderate ISS - strict I&O - avoid nephrotoxic medication - monitor BMP Thank you so much for the opportunity to consult on your patient. Nephro team will follow the patient. In case of any questions or concerns please feel free to reach out. Plan discussed with Dr. Hansen. The patient and caregiver team agreed to the plan. Addendum Patient seen and examined, plan discussed with resident. Agree with above, we will follow closely Plan discussed with: Patient, Other (RN) My Orders My Orders Orders - SUKHDEEP SAENZ Procedure Category Date Status Time Basic Metabolic Panel LAB 01/18/25 Verified 04:00 Dietary Evaluation Review Comments: Nutrition Recommendation: 1) Yanick 1 pk daily 2) CCHO 60gm + cardiac diet 3) Monitor PO intake, lab values, weight trend, and I/O Expected Outcomes/Goals: Wound to improve Lab values to improve Fu 3-5 days SUKHDEEP SAENZ RESIDENT Jan 17, 2025 18:05 VIPIN HANSEN MD Jan 17, 2025 21:12
[2025-01-18] VITALS (7 sets, daily range): BP systolic 108–129; BP diastolic 64–85; PULSE 59–85; RESP 16–18; TEMP 97.7–98.7; O2SAT 96–99
[2025-01-18 05:58] LABS: Potassium 4.1 mmol/L (3.5-5.1); Sodium 142 mmol/L (136-145)
[2025-01-18 05:59] LABS: Anion Gap 10 (5-15); Calcium 8.8 mg/dL (8.7-10.4); Carbon Dioxide 24 mmol/L (20-31)
[2025-01-18 06:04] LABS: BUN/Creatinine Ratio 13.5 (10.0-20.0)
[2025-01-18 06:09] LABS: Blood Urea Nitrogen 23 mg/dL (9-23); Chloride 108 mmol/L (98-107); Glucose 67 mg/dL (74-106)
[2025-01-18] MEDS: VANCOMYCIN 500mg/100mL 100 ML IV ONE (10:55)
--- NOTE | 2025-01-18 11:17 | DVHPN2 ---
Progress Note Date Seen: Jan 18, 2025 Resident Creating Document: SUKHDEEP SAENZ RESIDENT Medical Necessity Reason Pt with a Central, PICC or Fol: No Subjective Review of Systems Patient was seen and examined on the bedside. He is alert oriented x3. Mentioned feeling better and no active complaint this time. Status post PTCA x1 stent to RCA . Objective vital signs Vital Sign Date Time Temp Pulse Resp B/P (MAP) Pulse Ox O2 Delivery O2 Flow Rate FiO2 01/18/25 08:09 63 117/58 01/18/25 08:06 98.4 16 96 98.4 01/18/25 08:00 Room Air* 0 21 Total Intake and Output 01/17/25 01/17/25 01/18/25 15:00 23:00 07:00 Intake Total 50 ml 510 ml Output Total 300 ml Balance 50 ml 210 ml medications Current Medications Medications Dose Ordered Sig/Ricky Route Start Time Stop Time Status Last Admin Dose Admin Vancomycin HCl 0 ml @ 0 mls/hr UD IV 01/07/25 19:30 Ondansetron HCl 4 mg Q4HP PRN IV 01/07/25 19:30 01/11/25 12:34 4 MG Metoprolol Succinate 50 mg DAILY PO 01/08/25 10:00 01/18/25 08:09 50 MG Atorvastatin Calcium 40 mg HS PO 01/08/25 22:00 01/17/25 22:40 40 MG Oxycodone HCl 10 mg ONCE PRN PO 01/10/25 13:45 01/10/25 23:31 10 MG Hydralazine HCl 25 mg Q8HR PO 01/11/25 14:00 01/18/25 06:04 25 MG Acetaminophen/ Hydrocodone Bitart 1 tab Q6HPRN PRN PO 01/11/25 11:00 01/17/25 15:16 1 TAB Nitroglycerin 0.4 mg Q5MINP PRN SL 01/11/25 12:30 Insulin Human Regular HS SC 01/11/25 22:00 01/17/25 22:42 3 UNITS Diagnostic Test (Pha) 1 strip ACHS 01/11/25 17:00 01/18/25 06:04 1 STRIP Insulin Human Regular AC SC 01/11/25 17:00 01/18/25 10:59 3 UNITS Dextrose 50 ml UD PRN IV 01/11/25 13:30 Insulin Glargine 30 units HS SC 01/11/25 22:00 01/17/25 22:42 30 UNITS Aspirin 81 mg DAILY PO 01/12/25 10:00 01/18/25 08:08 81 MG Heparin Sodium/ Dextrose 250 ml @ 8 mls/hr Q24H IV 01/11/25 19:30 Cancel Cefepime HCl 50 ml @ 50 mls/hr DAILY IV 01/15/25 10:00 01/18/25 08:08 50 MLS/HR Clopidogrel Bisulfate 75 mg DAILY PO 01/17/25 10:00 01/18/25 08:09 75 MG Enoxaparin Sodium 30 mg DAILY SC 01/17/25 10:00 01/18/25 08:10 30 MG Examination Physical examination: General Appearance: Alert, Oriented X3, Cooperative, No acute distress HEENT: Atraumatic, PERRLA, EOMI, Mucous membrane moist/pink Respiratory: Clear to auscultation, Normal air movement Cardiovascular: Regular rate, Normal S1, Normal S2, No murmurs, no chest wall tenderness Abdominal: Normal bowel sounds, Soft, No tenderness, No hepatospenomegaly, No masses Extremities: Surgical dressing covering rt elbow, No clubbing, No cyanosis, No edema, Normal pulses. Skin: No rashes, No breakdown, No significant lesion Neuro: Normal gait, Normal speech, Strength at 5/5 X4 ext, Normal tone, Sensation intact, Cranial nerves 3-12 NL, Reflexes 2+ Psych/Mental Status: Mental status NL, Mood N laboratory and microbiology Laboratory Tests 01/18/25 05:02 01/17/25 05:10 Test 01/18/25 05:02 Range/Units Serum Glucose 67 L 74-106 mg/dL Microbiology Date/Time Source Procedure Growth Status 01/10/25 13:17 Elbow Gram Stain - Final Complete 01/10/25 13:17 Wound Culture - Final Staphylococcus aureus Complete 01/07/25 14:04 Blood Blood Culture - Final NO GROWTH AFTER 5 DAYS OF INCUBATION. 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 daily and hydralazine 25 mg Q 8 hours for optimize control of blood pressure - S/P I&D of rt elbow day 7 - continue IV antibiotics as per primary - Moderate ISS - strict I&O - avoid nephrotoxic medication - monitor BMP Thank you so much for the opportunity to consult on your patient. Nephro team will follow the patient. In case of any questions or concerns please feel free to reach out. Plan discussed with Dr. Nichole. The patient and caregiver team agreed to the plan. Plan discussed with: Patient, Other (RN) Dietary Evaluation Review Comments: Nutrition Recommendation: 1) Yanick 1 pk daily 2) CCHO 60gm + cardiac diet 3) Monitor PO intake, lab values, weight trend, and I/O Expected Outcomes/Goals: Wound to improve Lab values to improve Fu 3-5 days SUKHDEEP SAENZ RESIDENT Jan 18, 2025 11:17
[2025-01-18] MEDS ORDERED: ATOR20TA50 PO (14:01)
[2025-01-18] MEDS ORDERED: METO-6 PO (14:01)
[2025-01-18] MEDS ORDERED: ASPI-325 PO (14:01)
[2025-01-18] MEDS ORDERED: CLOP75TA70 PO (14:01)
[2025-01-18] MEDS ORDERED: LISI20TA56 PO (14:01)
--- NOTE | 2025-01-18 14:02 | DVHDS2 ---
Discharge Summary Date of Admission Jan 07, 2025 at 19:28 Date of Discharge: Jan 18, 2025 Labs/Diagnostic Data: Laboratory Results Test 01/18/25 10:26 01/18/25 05:02 01/17/25 05:10 01/16/25 06:24 POC Glucose 166 mg/dl (70-106) Sodium Level 142 mmol/L (136-145) Potassium Level 4.1 mmol/L (3.5-5.1) Chloride Level 108 mmol/L (98-107) Carbon Dioxide Level 24 mmol/L (20-31) Anion Gap 10 (5-15) Blood Urea Nitrogen 23 mg/dL (9-23) Creatinine 1.71 mg/dL (0.700-1.30) Glomerular Filtration Rate Calc 41 mL/min (>90) BUN/Creatinine Ratio 13.5 (10.0-20.0) Serum Glucose 67 mg/dL (74-106) Calcium Level 8.8 mg/dL (8.7-10.4) Random Vancomycin Level 10.9 ug/mL (5-10) White Blood Count 7.8 10^3/uL (4.4-10.8) Red Blood Count 3.67 10^6/uL (4.5-5.90) Hemoglobin 10.9 g/dL (13.5-17.5) Hematocrit 32.0 % (41.0-53.0) Mean Corpuscular Volume 87.3 fL (80.0-100.0) Mean Corpuscular Hemoglobin 29.8 pg (28.0-32.0) Mean Corpuscular Hemoglobin Concent 34.2 g/dL (32.0-36.0) Red Cell Distribution Width 13.4 % (11.8-14.3) Platelet Count 203 10^3/uL (140-450) Mean Platelet Volume 8.5 fL (6.9-10.8) Neutrophils (%) (Auto) 66.6 % (37.0-80.0) Lymphocytes (%) (Auto) 23.8 % (10.0-50.0) Monocytes (%) (Auto) 7.0 % (0.0-12.0) Eosinophils (%) (Auto) 2.5 % (0.0-7.0) Basophils (%) (Auto) 0.1 % (0.0-2.0) Neutrophils # (Auto) 5.2 10 ^3/uL (1.6-8.6) Lymphocytes # (Auto) 1.8 10 ^3/uL (0.4-5.4) Monocytes # (Auto) 0.5 10 ^3/uL (0-1.3) Eosinophils # (Auto) 0.2 10 ^3/uL (0-0.8) Basophils # (Auto) 0 10 ^3/uL (0-0.2) Nucleated Red Blood Cells 0.1 % Total Bilirubin 0.3 mg/dL (0.2-1.0) Aspartate Amino Transferase (AST) 18 U/L (13-40) Alanine Aminotransferase (ALT) 23 U/L (7-40) Alkaline Phosphatase 73 U/L (46-116) Total Protein 6.0 g/dL (5.7-8.2) Albumin 3.6 g/dL (3.2-4.8) Prothrombin Time 10.9 sec (9.3-11.8) Prothrombin Time INR 1.03 (0.9-1.15) Activated Partial Thromboplast Time 81.4 SEC (24.5-34.5) Test 01/11/25 16:51 01/09/25 06:27 01/08/25 10:12 01/08/25 05:00 Magnesium Level 2.0 mg/dL (1.6-2.6) Troponin I High Sensitivity 173 ng/L (</=54) C-Reactive Protein High Sensitivity 2.46 mg/dL (<1.0) Triglycerides Level 110 mg/dL (< 150) Cholesterol Level 137 mg/dL (< 200) LDL Cholesterol 81 mg/dL (< 100) HDL Cholesterol 39 mg/dL (40-59) Thyroid Stimulating Hormone (TSH) 1.42 uIU/mL (0.55-4.78) Phosphorus Level 3.6 mg/dL (2.4-5.1) Urine Color Light-yellow (Yellow) Urine Clarity Clear (Clear) Urine pH 5.5 (5.0-9.0) Urine Specific [place] 1.013 (1.001-1.035) Urine Protein 1+ (Negative) Urine Ketones Negative (Negative) Urine Blood Negative /uL (Negative) Urine Nitrite Negative (Negative) Urine Bilirubin Negative (Negative) Urine Urobilinogen Normal mg/dL (Negative) Urine Leukocyte Esterase Negative /uL (Negative) Urine RBC 1 /hpf (0 - 3) Urine Microscopic WBC < 1 /HPF (0-3) Urine Squamous Epithelial Cells Few /hpf (<5) Urine Bacteria None seen /hpf (None Seen) Urine Hyaline Casts Few /lpf (0 - 2) Urine Creatinine 52.51 mg/dL (30.0-125.0) Urine Sodium 123 mmol/L (40-220) Urine Glucose 2+ mg/dL (Normal) Hemoglobin A1c 7.7 % A1C (<5.7) Uric Acid 7.9 mg/dL (3.7-9.2) Hepatitis B Surface Antigen Negative (Negative) Hepatitis C Antibody Negative (Negative) Test 01/08/25 00:00 01/07/25 14:09 01/07/25 14:04 Urine Protein/Creatinine Ratio 1.75 Urine Total Protein 86.7 mg/dL (1-14) Erythrocyte Sedimentation Rate 92 mm/hr (0-20) Lactic Acid Level 1.1 mmol/L (0.4-2.0) Other Laboratory Tests 01/18/25 05:02 01/17/25 05:10 Condition at Discharge: Fair Final Diagnosis/Problems List Stenotic RCA Discharge Disposition: Home Discharge Instruct/Medications Diet: Cardiac 2g Na,low cholest Activity: No Restrictions, As Tolerated Scheduled Aspirin (Aspirin Low Dose), 81 MG PO DAILY Atorvastatin Calcium (Atorvastatin Calcium), 40 MG PO HS Clopidogrel Bisulfate (Clopidogrel), 75 MG PO DAILY Lisinopril (Lisinopril), 1 TAB PO DAILY Metoprolol Succinate (Metoprolol Succinate Er), 1 TAB PO DAILY, (Reported) Metoprolol Succinate (Toprol Xl), 50 MG PO DAILY Discharge Statement: "Patient was advised to return to the ER or call 911 if any headaches, dizziness, shortness of breath, chest pain, abdominal pain, bleeding, fevers, or worsening of medical condition. Patient was counseled about treatment plan, medications, possible side effects, patientverbalized understanding. All questions were answered to the best of my ability. This discharge took greater then 30 minutes in planning, reviewing documentation, counseling the patient, and discussing with other team members." ASSESSMENT ASSESSMENT Assessment Stenotic RCA Date of Service: Jan 18, 2025 Billing Provider: LEAH LEVINE DO Common Visit Codes: 96405-DCK/OBS DISCH DAY >30min LEAH LEVINE DO Jan 18, 2025 14:02
== END 2025-01-18 17:58 | disposition home or self-care (01) | DRG 323 ==
LOC: ER 12:07 → OVERFLOW 19:28 → WEST WING 01-08 15:08 → CENTRAL 01-10 15:58 → TELE-CENTR 01-11 16:27
PROVIDERS: ADMIT Internal Medicine; ATTEND Internal Medicine
PROC: 0R9L0ZZ Drainage of Right Elbow Joint, Open Approach (ICD-10-PCS; principal; 2025-01-10 12:50)
PROC: 027034Z Dilation of Coronary Artery, One Artery with Drug-eluting Intraluminal Device, Percutaneous Approach (ICD-10-PCS; 2025-01-16)
PROC: 02F03ZZ Fragmentation in Coronary Artery, One Artery, Percutaneous Approach (ICD-10-PCS; 2025-01-16)
PROC: 4A023N7 Measurement of Cardiac Sampling and Pressure, Left Heart, Percutaneous Approach (ICD-10-PCS; 2025-01-16)
PROC: B211YZZ Fluoroscopy of Multiple Coronary Arteries using Other Contrast (ICD-10-PCS; 2025-01-16)
PROC: B215YZZ Fluoroscopy of Left Heart using Other Contrast (ICD-10-PCS; 2025-01-16)
PROC: 4A033BC Measurement of Arterial Pressure, Coronary, Percutaneous Approach (ICD-10-PCS; 2025-01-16)
DX: I21.4 Non-ST elevation (NSTEMI) myocardial infarction (principal); N17.0 Acute kidney failure with tubular necrosis; L03.113 Cellulitis of right upper limb; I42.2 Other hypertrophic cardiomyopathy; E11.22 Type 2 diabetes mellitus with diabetic chronic kidney disease; D63.1 Anemia in chronic kidney disease; I16.0 Hypertensive urgency; M70.21 Olecranon bursitis, right elbow; E78.5 Hyperlipidemia, unspecified; F03.90 Unspecified dementia, unspecified severity, without behavioral disturbance, psychotic disturbance, mood disturbance, and anxiety; I35.0 Nonrheumatic aortic (valve) stenosis; I12.9 Hypertensive chronic kidney disease with stage 1 through stage 4 chronic kidney disease, or unspecified chronic kidney disease; I25.10 Atherosclerotic heart disease of native coronary artery without angina pectoris; N18.30 Chronic kidney disease, stage 3 unspecified; Z88.1 Allergy status to other antibiotic agents; Z79.899 Other long term (current) drug therapy
CPT/HCPCS: 36415; 71045; 73070; 73200; 76775; 80048; 80053; 80061; 80202; 81001; 82570; 82962; 83036; 83605; 83735; 84100; 84156; 84300; 84443; 84484; 84550; 85025; 85610; 85652; 85730; 86141; 86803; 86850; 86900; 86901; 87040; 87077; 87081; 87186; 87205; 87340; 93005; 93306; 94640; 96360; 97163; 99152; C1874; G0378; J0131; J0692; J1100; J1815; J1885; J2250; J2405; J2704; Q9967